=== PATIENT | female | born 1955 | race Caucasian/White ===

== ENCOUNTER 2016-09-06 18:04 | Inpatient (IN) | payer OTHER ==
[~2016-09-06] VITALS: Ht 167.6 cm; Wt 106.3 kg
[2016-09-06] MEDS: ASPIRIN 81 MG TAB PO SCH (02:00)
[2016-09-06] MEDS: POTASSIUM CHLORIDE 50 ML IVPB SCH ×2 (02:00→22:42)
[2016-09-06] MEDS ORDERED: PROPOFOL 100 ML ONE (18:22)
[2016-09-06 18:29] LABS: ADD SCAN DIFF NO
[2016-09-06] MEDS ORDERED: PROPOFOL 100 ML IV ONE (18:30)
[2016-09-06] MEDS ORDERED: FUROSEMIDE 20 MG INJ IV ONE (18:30)
[2016-09-06] MEDS ORDERED: hydrALAzine 20 MG INJ IV ONE (18:30)
[2016-09-06] MEDS ORDERED: NITROGLYCERIN 2% 1 GM OINT PKT TD ONE (18:30)
[2016-09-06 18:34] LABS: BASOPHIL # 0.1 10^3/ul (0.0-0.1); BASOPHILS % 0.7 % (0.0-2.0); EOSINOPHILS # 0.2 10^3/ul (0.0-0.5); EOSINOPHILS % 2.3 % (0.0-7.0); HEMATOCRIT 47.8 % (37.0-47.0); HEMOGLOBIN 14.4 g/dl (12.0-16.0); LYMPHOCYTES # 3.8 10^3/ul (0.8-2.9); LYMPHOCYTES % 37.7 % (15.0-51.0); MEAN CORPUSCULAR HGB CONC 30.1 g/dl (32.0-37.0); MEAN CORPUSCULAR VOLUME 99.6 fl (82.0-101.0); MEAN PLATELET VOLUME 10.9 fl (7.4-10.4); MONOCYTE # 0.9 10^3/ul (0.3-0.9); MONOCYTES % 8.8 % (0.0-11.0); NEUTROPHIL # 5.1 10^3/ul (1.6-7.5); NEUTROPHILS % 49.7 % (39.0-77.0); NUCLEATED RED BLOOD CELLS% 0.2 /100WBC (0.0-0.0); PLATELET COUNT 218 10^3/UL (140-415); RED CELL DISTRIBUTION WIDTH 16.1 % (11.5-14.5); WHITE BLOOD COUNT 10.2 10^3/ul (4.8-10.8)
[2016-09-06 18:50] LABS: ALBUMIN/GLOBULIN RATIO 1.08; BILIRUBIN,INDIRECT 0.9 mg/dl (0-1.1); BILIRUBIN,TOTAL 0.9 mg/dl (0.2-1.3); CALCIUM 9.5 mg/dl (8.4-10.2); CREATININE 1.5 mg/dl (0.44-1.00); POTASSIUM 3.4 mmol/L (3.5-5.1); TOTAL PROTEIN 9.6 g/dl (6.1-8.1)
[2016-09-06 19:01] LABS: TROPONIN-I 0.028 ng/ml (0.00-0.12)
[2016-09-06 19:24] LABS: AADO2 Arterial 439.8 mmHg (7.0-24.0); Allen Test ACCEPTAB; Arterial Base Excess -1.1 mmol/L (-3.0-3); Arterial COHb 0 % (0.0-3.0); Arterial Fraction of Oxyhgb 98.7 % (93.0-99.0); Arterial HCO3 25.3 mmol/L (22.0-26.0); Arterial MetHb 0.5 % (0.0-1.5); Arterial Total Hemglobin 15.4 g/dl (12.0-18.0); MODE VENT - AC
--- NOTE | 2016-09-06 19:33 | RADRPT ---
PROCEDURE: XR Chest. CLINICAL INDICATION: Possible sepsis. The patient is status post intubation. TECHNIQUE: Single frontal view of the chest. COMPARISON: None. FINDINGS: Endotracheal intubation is seen with tip about 35 mm above the curry. Single chamber left anterior chest wall cardiac pacer. Prominent cardiomegaly. Pulmonary vascular congestion. No signs of pleural fluid or pneumothorax are seen. The osseous structures and soft tissues are unre markable. IMPRESSION: Endotracheal intubation is seen with tip about 35 mm above the curry. RPTAT: [facility] Physician Collin Date Time Electronically viewed and signed by Physician Collin on 09/06/2016 19:33 RS/
[2016-09-06 19:41] LABS: INR 1.39; PARTIAL THROMBOPLASTIN TIME 31.7 Sec (25.0-35.0); PROTIME 17.1 Sec (12.2-14.2); PT RATIO 1.3
[2016-09-06 21:07] LABS: ADD UMIC YES; UR BILIRUBIN (Dip) NEGATIVE (NEGATIVE); UR BLOOD (Dip) 2+ (NEGATIVE); UR CLARITY SLIGHTLY CLOUDY (CLEAR); UR COLOR LT. YELLOW (YELLOW); UR GLUCOSE (Dip) NEGATIVE (NEGATIVE); UR KETONES (Dip) NEGATIVE (NEGATIVE); UR LEUKOCYTE ESTERASE (Dip) NEGATIVE (NEGATIVE); UR NITRITE (Dip) NEGATIVE (NEGATIVE); UR TOTAL PROTEIN (Dip) 2+ (NEGATIVE); UR UROBILINOGEN (Dip) 0.2 E.U./dL (0.1-1.0)
[2016-09-06 21:16] LABS: UR SQUAMOUS EPITHELIAL CELL RARE
--- NOTE | 2016-09-06 21:27 | RADRPT ---
PROCEDURE: CT Abdomen and Pelvis without contrast CLINICAL INDICATION: Abdominal pain TECHNIQUE: Transaxial images were obtained through the abdomen and pelvis on a multi-slice scanner without the intravenous contrast administration. No oral contrast had previously been given. Sagit sydnie and coronal re-formations were subsequently reconstructed. One or more of the following dose reduction techniques were used: - Automated exposure control. - Adjustment of the mA and/or kV according to patient size. - Use of iterative reconstruction technique. Radiation dose: CTDIvol = 23.10 mGy; DLP = 1560.42 mGy-cm. COMPARISON: No prior studies are available for comparison. FINDINGS: Lung bases: An endotracheal tube is seen to be in place. Subsegmental atelectasis is seen within th e posterior right upper lobe, posterior right lower lobe and discoid atelectasis is seen in the post erior left upper lobe and lower lobe. Artifact from pacemaker leads are seen to the heart and there is moderate cardiomegaly. Liver: The liver is enlarged and heterogeneous with a slightly nodular contour which can be seen in cirrhosis. No discrete focal lesion is identified. Gallbladder: There is cholelithiasis but the gallbladder wall does not appear thickened. Bile ducts: The intra and extrahepatic bile ducts are normal in caliber. Pancreas: Appears normal with no mass or inflammation evident. Spleen: Normal in size with no focal lesion. Adrenals: Normal with no mass identified. Kidneys, ureters and bladder: The kidneys are normal in size and there is no mass, pathological calc ification, or hydronephrosis evident. There is no perinephric stranding. The ureters are normal in c aliber and no ureteroliths are identified. A Moraes catheter is seen within a nondistended bladder al talia with a small amount of intraluminal air. Reproductive organs: The uterus is enlarged and midline. No adnexal mass is identified. Stomach and bowel: The stomach is moderately distended with fluid and food debris. There is no evid ence of bowel obstruction or inflammation. Appendix: The vermiform appendix is not discretely identified. Peritoneum: There is a moderate amount of water density free intraperitoneal fluid. No free air is identified. There is a small fat containing umbilical hernia. Aorta: There is atherosclerotic vascular calcification but no abdominal aortic aneurysm is evident. IVC: Unremarkable. Lymph nodes: No pathologically enlarged nodes are identified. Osseous structures: Moderate degenerative endplate changes are evident most extensive within the tho racic spine region. IMPRESSION: 1. Endotracheal tube in place. 2. A permanent pacemaker and leads are evident and there is moderate cardiomegaly. 3. Subsegmental atelectatic change seen within the posterior lung cabrera. 4. Hepatomegaly with a cirrhotic appearing liver but no discrete focal lesion. 5. Cholelithiasis not associated gallbladder wall thickening, bile duct dilatation or pancreatic pa thology. 6. Enlarged midline uterus with no adnexal mass evident. 7. Moderate amount of water density free intraperitoneal fluid with no free air identified. 8. The stomach is moderately distended with fluid and food debris but there is no evidence of bowel obstruction or inflammation. The vermiform appendix is not discretely identified. 9. Small fat containing umbilical hernia. 10. No evidence of urinary outflow obstruction. A Moraes catheter is seen in a nondistended bladder . 11. Atherosclerotic vascular calcification with degenerative spine changes. Physician Thiago Date Time Electronically viewed and signed by Physician Thiago on 09/06/2016 21:26 /
[2016-09-06] MEDS ORDERED: INSULIN LISPRO 100 UNIT/ML VIAL SC STA (21:40)
--- NOTE | 2016-09-06 21:51 | ERA ---
ER Documentation Chief Complaint Date/Time DATE: 09/06/16 TIME: 21:38 Chief Complaint SOB using accessory muscles to breath HPI This 60-year-old female is brought in respiratory extremis by paramedics who had complained of sudden onset shortness of breath but she was in the shower. She denies chest pain. Says that she fell yesterday and felt well immediately prior to having the sudden onset shortness of breath. Denies fevers and chills. She is only able to speak in one-word sentences and mostly communicates by nodding and shaking her head. ROS Unobtainable except for what is in the HPI. Medications Home Meds Unable to Obtain Active Prescriptions or Reported Meds Allergies Allergies: Coded Allergies: Unknown: Unable to obtain (Unverified , 09/06/16) pt intubated PMhx/Soc Medical and Surgical Hx: Unable to obtain Smoking Status: Unknown if ever smoked Physical Exam Vitals Vital Signs Date Time Temp Pulse Resp B/P Pulse Ox O2 Delivery O2 Flow Rate FiO2 09/06/16 21:25 85 111/68 Mechanical Ventilator 09/06/16 21:00 86 20 105/70 98 Mechanical Ventilator 09/06/16 20:28 99 132/79 98 Mechanical Ventilator 09/06/16 20:00 95 20 144/97 98 Mechanical Ventilator 09/06/16 19:35 98.3 95 136/92 97 Mechanical Ventilator 09/06/16 19:15 101 135/92 09/06/16 19:01 100 119/71 09/06/16 18:46 98.1 125 20 170/128 100 Mechanical Ventilator 09/06/16 18:34 136 20 100 100 09/06/16 18:12 98.1 143 22 202/148 100 Physical Exam Const: [] Severe distress, severe tachypnea Head: Atraumatic Eyes: Normal Conjunctiva ENT: Normal External Ears, Nose and Mouth. Moist mucous membranes Neck: Full range of motion..~ No meningismus. Resp: Decreased bibasilar breath sounds with Rales on the right side, respiratory rate approximately 60, accessory muscle use including scalenes. Cardio: A extreme regular tachycardia, no murmurs Abd: Soft, non tender, moderate distention, positive fluid wave, tympanic at the apex. Normal bowel sounds Skin: No petechiae or rashes Back: No midline or flank tenderness Ext: No cyanosis, or edema Neur: Awake and alert and apparently oriented 3, no focal deficits Psych: Extremely anxious Result Diagram: 09/06/16181409/06/161814 Results 24 hrs Laboratory Tests Test 09/06/16 18:15 09/06/16 18:17 09/06/16 19:55 White Blood Count 10.210^3/ul Red Blood Count 4.8010^6/ul Hemoglobin 14.4g/dl Hematocrit 47.8% Mean Corpuscular Volume 99.6fl Mean Corpuscular Hemoglobin 30.0pg Mean Corpuscular Hemoglobin Concent 30.1g/dl Red Cell Distribution Width 16.1% Platelet Count 82800^3/UL Mean Platelet Volume 10.9fl Neutrophils % 49.7% Lymphocytes % 37.7% Monocytes % 8.8% Eosinophils % 2.3% Basophils % 0.7% Nucleated Red Blood Cells % 0.2/100WBC Neutrophils # 5.110^3/ul Lymphocytes # 3.810^3/ul Monocytes # 0.910^3/ul Eosinophils # 0.210^3/ul Basophils # 0.110^3/ul Nucleated Red Blood Cells # 0.010^3/ul Prothrombin Time 17.1Sec Prothrombin Time Ratio 1.3 INR International Normalized Ratio 1.39 Activated Partial Thromboplast Time 31.7Sec Sodium Level 146mmol/L Potassium Level 3.4mmol/L Chloride Level 101mmol/L Carbon Dioxide Level 21mmol/L Anion Gap 27 Blood Urea Nitrogen 21mg/dl Creatinine 1.50mg/dl Glucose Level 267mg/dl Calcium Level 9.5mg/dl Total Bilirubin 0.9mg/dl Direct Bilirubin 0.00mg/dl Indirect Bilirubin 0.9mg/dl Aspartate Amino Transf (AST/SGOT) 29IU/L Alanine Aminotransferase (ALT/SGPT) 23IU/L Alkaline Phosphatase 186IU/L Troponin I 0.028ng/ml B-Type Natriuretic Peptide 9080PG/ML Total Protein 9.6g/dl Albumin 5.0g/dl Globulin 4.60g/dl Albumin/Globulin Ratio 1.08 Blood Gas Specimen Source Blood arterial Arterial Blood Date Drawn 09/06/2016 7:10:52 PM Arterial Blood pH (Temp corrected) 7.335 Arterial Blood pCO2 (Temp correct) 48.5mmhg Arterial Blood pO2 (Temp corrected) 224.7mmHG Arterial Blood HCO3 25.3mmol/L Arterial Blood Base Excess -1.1mmol/L Arterial Blood Oxygen Saturation 99.2mmHG Antonio Test ACCEPTAB Arterial Blood Gas Puncture Site UAL Arterial Blood Carboxyhemoglobin 0% Arterial Blood Methemoglobin 0.5% Blood Gas A-a O2 Differential 439.8mmHg Oxyhemoglobin Percent 98.7% Total Hemoglobin 15.4g/dl Blood Gas Temperature 37.0C Blood Gas Respiration Rate 20.0 Blood Gas Actual Respiration Rate 20 Blood Gas Modality VENT - AC FiO2 100.0% Blood Gas Tidal Volume 500.0mL Blood Gas Low PEEP Setting 5.0cmH2O Blood Gas Inspiratory Pressure 29.0 Blood Gas Notified Whom AA Blood Gas Notified Time 09/06/2016 7:23:41 PM Urine Color LT. YELLOW Urine Clarity SLIGHTLY CLOUDY Urine pH 6.5 Urine Specific [place] 1.020 Urine Ketones NEGATIVE Urine Nitrite NEGATIVE Urine Bilirubin NEGATIVE Urine Urobilinogen 0.2 E.U./dL Urine Leukocyte Esterase NEGATIVE Urine Microscopic RBC 5-10/HPF Urine Microscopic WBC 0-2/HPF Urine Squamous Epithelial Cells RARE Urine Hemoglobin 2+ Urine Glucose NEGATIVE% Urine Total Protein 2+ Current Medications Medications (Trade) Dose Ordered Sig/Catherine Route PRN Reason Start Time Stop Time Status Last Admin Dose Admin Propofol (Diprivan) 100 ml @ 0 mls/hr TITRATE ONCE IV 09/06/16 18:30 09/06/16 18:31 DC 09/06/16 18:57 Hydralazine HCl (Apresoline) 10 mg ONCE ONCE IV 09/06/16 18:30 09/06/16 18:31 DC 09/06/16 18:57 Furosemide (Lasix) 20 mg ONCE ONCE IV 09/06/16 18:30 09/06/16 18:31 DC 09/06/16 18:57 Nitroglycerin 1 inch 1 inch ONCE ONCE TD 09/06/16 18:30 09/06/16 18:31 DC 09/06/16 18:58 Propofol (Diprivan) 100 ml @ ud STK-MED ONCE .ROUTE 09/06/16 18:22 09/06/16 19:19 DC Procedures/MDM Severe respiratory distress likely secondary to flash pulmonary edema. Patient is extremely hypertensive according the paramedics. Was hypertensive on arrival to ER 2. Chest x-ray consistent with pulmonary edema, BNP of 9000. Patient had no chest pain and no signs of acute ischemia on EKG. Patient was quickly intubated and respiratory rate was started at 24. Blood gas revealed no severe acidosis. Adequate oxygenation. Mild CO2 retention. Tachycardia also resolved after intubation. She with Lasix and Nitropaste, blood pressure reduced prior to need to give hydralazine. No elevated white count or other signs of infection currently. Spoke with Dr. Wayne who is admitting the patient to the ICU. EKG interpretation: Sinus tachycardia with single PVC, left axis deviation, nonspecific interventricular conduction block, QTC of 536, no ST or T-wave changes concerning for acute ischemia. 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 Critical care time 47 minutes: This includes treatment of respiratory failure with flash pulmonary edema, ventilator management, use of nitroglycerin and Lasix remove fluid, multiple visits this the patient's bedside to reassess status, chart review, discussion with admitting doctor. This does not include any billable procedures. ET intubation note: RSI was used with 20 mg of etomidate 100 mg of rocuronium, preoxygenated to 100% bag mask ventilation, 7.5 ET tube was easily introduced through visualized vocal cords using a Mac 4 blade, patient tied the procedure well or no complications. I should finish is 100% after the procedure. Departure Diagnosis: Primary Impression: Pulmonary edema Additional Impressions: Respiratory failure CHF (congestive heart failure) Hyperglycemia due to type 2 diabetes mellitus Renal insufficiency Liver cirrhosis Condition: Critical STEPHANIE DYSON DO Sep 06, 2016 21:48
[2016-09-06 22:00] VITALS: TEMP 98.3
[2016-09-06] MEDS ORDERED: IPRATROPIUM (HFA) 12.9 GM INHALER INH PRN (22:30)
[2016-09-06] MEDS ORDERED: ACETAMINOPHEN 650 MG SUPP PR PRN (22:30)
[2016-09-06] MEDS ORDERED: ONDANSETRON 4 MG INJ IV PRN (22:30)
[2016-09-06] MEDS ORDERED: ALBUTEROL 18 GM INHALER INH PRN (22:30)
[2016-09-07] VITALS (47 sets, daily range): BP systolic 110–139; BP diastolic 69–88; PULSE 79–91; RESP 20; Ht 167.6 cm; Wt 106.3 kg
[2016-09-07] MEDS ORDERED: GLUCOSE GEL 15 GRAM TUBE BUCCAL PRN (00:30)
[2016-09-07] MEDS ORDERED: GLUCOSE GEL 15 GRAM TUBE PO PRN ×2 (00:30)
[2016-09-07] MEDS ORDERED: DEXTROSE 50% 50 ML SYRINGE IV PRN ×2 (00:30)
[2016-09-07] MEDS ORDERED: GLUCAGON 1 MG INJ IM PRN (00:30)
--- NOTE | 2016-09-07 01:35 | QN ---
Documentation Comment BH&P dict a/p 1. cards; elevated trop[ and flash pulm edema, suspect this is related to acs, cont asa, cards eval (b) massive cardiomegaly, suspect dilated cardiomyopathy await echo 2. pulm: resp failure, cont vent support 3. gi: cirrhosis with ascites, monitor 4. renal: ckd 5. proph: ANNA Rodgers MD Sep 07, 2016 01:35
[2016-09-07] MEDS: ENOXAPARIN 100 MG/ML SYG SC SCH ×2 (02:07→13:13)
[2016-09-07] MEDS: ALBUTEROL 18 GM INHALER INH SCH ×6 (02:26→21:54)
[2016-09-07] MEDS: IPRATROPIUM (HFA) 12.9 GM INHALER INH SCH ×6 (02:27→21:54)
--- NOTE | 2016-09-07 02:38 | HP ---
DATE OF ADMISSION: 09/06/2016 CHIEF COMPLAINT: Shortness of breath. HISTORY OF PRESENT ILLNESS: Ms. Connell presents to the emergency room at [facility] with shortness of breath which is of sudden onset. At the time of my arrival, patient is intubated and s edated, unable to provide additional history. The remainder of this is garnered from a conversation with the emergency room physician and review of the medical record. According to the ER physician sign-out, the patient was in her usual state of health and was in the shower this afternoon when she became suddenly short of breath and paramedics were called and she was brought to the hospital. Luis nur was in moderate to severe respiratory distress at this time and intubated urgently on arrival. PAST MEDICAL HISTORY: Unknown. MEDICATIONS: As an outpatient, unknown. ALLERGIES: UNKNOWN. SOCIAL HISTORY: Unknown. FAMILY HISTORY: Unknown. REVIEW OF SYSTEMS: Unobtainable secondary to patient's status. PHYSICAL EXAMINATION: VITAL SIGNS: Blood pressure is 129/83, pulse rate 85, respirations 16, temperature is 98.3. She is satting 100% on a ventilator. GENERAL: A middle-aged -[place] female, obese, intubated and sedated. HEENT: Normocephalic, atraumatic without evident scleral icterus, perioral cyanosis. NECK: I do not appreciate any jugular venous distention or carotid bruits. CHEST: Clear to auscultation and percussion bilaterally. HEART: Regular rate and rhythm, S1-S2, no added sounds. ABDOMEN: Soft, nontender, nondistended without palpable hepatosplenomegaly. EXTREMITIES: Without clubbing, cyanosis, or edema. Pedal pulses are intact. Feet are cold. SKIN: Without rashes. NEUROLOGIC: The patient is not cooperative with exam and is currently sedated. LABORATORY STUDIES: Reveal a hemoglobin of 14.4 g/dL, white count of 10,200, platelets of 218,000. INR is 1.39. Sodium 146, potassium 3.4, chloride 101, bicarbonate 21, BUN 21, creatinine 1.5, gluc ose 267. Liver function tests remarkable only for an alkaline phosphatase of 186. Troponin is 0.02 8 and repeated at 0.158. BNP is 9080. UA is negative for signs of infection. Chest x-ray shows a left single lead pacemaker, pulmonary vascular congestion, large cardiomegaly. CT scan of the abdom en and pelvis shows hepatomegaly with nodular cirrhotic appearance to the liver parenchyma, moderate ascites, distended stomach. EKG reveals sinus rhythm with no definitive ST segment changes. ASSESSMENT AND PLAN: 1. Cardiac: The patient with likely acute coronary syndrome as the cause of her current respirator y failure and sudden decompensation. We will obtain serial troponins, begin aspirin and Lovenox, ho ld beta enma at this time because of patient's vital signs at this point, obtain cardiology consu ltation. 2. Pulmonary: Patient with respiratory failure on the ventilator. Will obtain pulmonary consultat ion for further management. 3. Gastrointestinal: Patient with cirrhosis appearance of the liver on CT scan; however, none of t he physical exam stigmata are appreciated, though she does have mildly elevated INR and ascites. Wi ll continue to monitor at this time. 4. Renal: Patient with creatinine 1.5. This is presumed to be baseline. Continue to monitor. 5. Elevated blood sugar, unclear if this represents diabetes. We will continue to follow. 6. Prophylaxis with Protonix and treatment dose Lovenox based on presumed diagnosis of acute hodges ry syndrome. Dictated By: ANNA ALLEN MD RER/NTS Conf#: [id number] DID#: [id number]
[2016-09-07] MEDS: ATORVASTATIN 40 MG TAB PO SCH ×2 (03:09→21:20)
[2016-09-07] MEDS: PROPOFOL 100 ML IV SCH ×5 (03:09→22:01)
[2016-09-07] MEDS ORDERED: FUROSEMIDE 40 MG INJ IV SCH (06:00)
[2016-09-07] MEDS: PANTOPRAZOLE 40 MG INJ IV SCH (06:13)
[2016-09-07 06:53] LABS: ADD SCAN DIFF NO
[2016-09-07 07:01] LABS: BASOPHILS % 0.4 % (0.0-2.0); EOSINOPHILS # 0.1 10^3/ul (0.0-0.5); EOSINOPHILS % 0.7 % (0.0-7.0); HEMATOCRIT 39.5 % (37.0-47.0); HEMOGLOBIN 12.5 g/dl (12.0-16.0); LYMPHOCYTES # 1.5 10^3/ul (0.8-2.9); LYMPHOCYTES % 15.1 % (15.0-51.0); MEAN CORPUSCULAR HEMOGLOBIN 29.4 pg (29.0-33.0); MEAN CORPUSCULAR HGB CONC 31.6 g/dl (32.0-37.0); MEAN CORPUSCULAR VOLUME 92.9 fl (82.0-101.0); MEAN PLATELET VOLUME 11.2 fl (7.4-10.4); MONOCYTE # 0.6 10^3/ul (0.3-0.9); MONOCYTES % 6.1 % (0.0-11.0); NEUTROPHIL # 7.6 10^3/ul (1.6-7.5); NEUTROPHILS % 77.4 % (39.0-77.0); PLATELET COUNT 220 10^3/UL (140-415); RED BLOOD COUNT 4.25 10^6/ul (4.20-5.40); RED CELL DISTRIBUTION WIDTH 16.1 % (11.5-14.5); WHITE BLOOD COUNT 9.8 10^3/ul (4.8-10.8)
[2016-09-07 07:23] LABS: CALCIUM 9.2 mg/dl (8.4-10.2); CREATININE 1.19 mg/dl (0.44-1.00); POTASSIUM 3.9 mmol/L (3.5-5.1)
[2016-09-07] MEDS ORDERED: INSULIN ASPART [NOVOLOG] 3 ML PEN SC SCH (07:35)
[2016-09-07] MEDS ORDERED: ENOXAPARIN 40 MG/0.4 ML SYG SC SCH (09:00)
--- NOTE | 2016-09-07 09:09 | RADRPT ---
PROCEDURE: Chest 1 views. CLINICAL INDICATION: Status post orogastric tube insertion. TECHNIQUE: AP views of the chest was obtained. COMPARISON: Yesterday FINDINGS: The heart is large. Endotracheal tube is stable and appears in grossly appropriate location. [place] tric tube is identified to the level of the hemidiaphragms. The abdomen below the hemidiaphragms is not included on the obtained film. Left-sided AICD has its lead over the heart and appears stable. Central pulmonary vascular congestion and interstitial prominence is seen in both lungs. Bilatera l perihilar and lower lung infiltrates, combined with small pleural effusions have increased. [place] us structures are unchanged. IMPRESSION: Cardiomegaly . Orogastric tube identified to the level of the hemidiaphragms. The abdomen below the hemidiaphragms was not included on the obtained film. The distal end of the gastric tube is likely within the sto mach. If confirmation is needed an abdominal film is recommended. Central pulmonary vascular congestion and interstitial prominence in both lungs. Interval increase in bilateral perihilar lower lung infiltrates, combined with small pleural effusio ns. RPTAT: AA .Koffi Kruse MD, Date Time Electronically viewed and signed by .Koffi Kruse MD, on 09/07/2016 09:09 .P/
--- NOTE | 2016-09-07 09:54 | PN ---
Date/Time of Note Date/Time of Note DATE: 09/07/16 TIME: 09:31 Assessment/Plan VTE Prophylaxis VTE Prophylaxis Intervention: LMWH Lines/Catheters IV Catheter Type (from Nrs): Peripheral IV Urinary Cath still in place: Yes Reason Cath still needed: other (indicate) (monitor UOP, CHF ) Assessment/Plan Assessment/Plan 60 yo female with: 1. Acute Hypoxemic respiratory failure, likely 2ry yto pulmonary edema and CHF, ? triggered by acute cardiac event Diuresing and Pulmonary following for vent management, adding Aldactone Continue trending cardiac enzymes 2D echo pending and check BNP 2. Elevated troponins, with Cardiomyopathy, pacer for ? cardiac arrhythmia in place but not pacing currently, likely ACS Cardiology, Dr Kingsley consulted and 2D echo done and trending troponins Interrogate Pacer if possible, ? battery life ASA, Lovenox 3. Cirrhosis, unknown history , so ? etiology Monitor LFTs and liver function Rechecking Ammonia level this AM 4. ILAN vs CKD, creat down to 1.2 this AM while being diuresed Moraes in place Renal US and continue to monitor. 5. Hyperglycemia: On SSI, check A1c, unknown hx . Prophylaxis: GI ppx with Protonix and on treatment dose of Lovenox for possible ACS. Disposition: ICU, pulmonary following, Cardiology consulted Subjective 24 Hr Interval Summary Free Text/Dictation Patient in respiratory failure, intubated and on Propofol for sedation VSS on vent Exam/Review of Systems Vital Signs Vitals Vital Signs Date Time Temp Pulse Resp B/P Pulse Ox O2 Delivery O2 Flow Rate FiO2 09/07/16 08:30 82 20 99 40 09/07/16 06:00 131/83 Mechanical Ventilator 09/07/16 04:00 97.8 Intake and Output 09/06/16 09/06/16 09/07/16 15:00 23:00 07:00 Intake Total 144 ml Output Total 900 ml Balance -756 ml Exam Constitutional: other (sedated and intubated ) Respiratory: diminished breath sounds (bilaterally ), other (intubated ) Cardiovascular: nl pulses, other (pacer in site), regular rate and rhythm Gastrointestinal: non-tender, other (cirrhosis ), soft Musculoskeletal: nl extremities to inspection Extremities: normal pulses, other (no edema, clubbing or cyanosis ) Neurological: other (sedated and intubated ) Results Result Diagram: 09/07/16 0523 09/07/16 0523 Results 24 hrs Laboratory Tests Test 09/06/16 18:15 09/06/16 18:17 09/06/16 19:55 09/06/16 20:49 White Blood Count 10.2 Red Blood Count 4.80 Hemoglobin 14.4 Hematocrit 47.8 H Mean Corpuscular Volume 99.6 Mean Corpuscular Hemoglobin 30.0 Mean Corpuscular Hemoglobin Concent 30.1 L Red Cell Distribution Width 16.1 H Platelet Count 218 Mean Platelet Volume 10.9 H Neutrophils % 49.7 Lymphocytes % 37.7 Monocytes % 8.8 Eosinophils % 2.3 Basophils % 0.7 Nucleated Red Blood Cells % 0.2 H Neutrophils # 5.1 Lymphocytes # 3.8 H Monocytes # 0.9 Eosinophils # 0.2 Basophils # 0.1 Nucleated Red Blood Cells # 0.0 Prothrombin Time 17.1 H Prothrombin Time Ratio 1.3 INR International Normalized Ratio 1.39 Activated Partial Thromboplast Time 31.7 Sodium Level 146 H Potassium Level 3.4 L Chloride Level 101 Carbon Dioxide Level 21 Anion Gap 27 H Blood Urea Nitrogen 21 H Creatinine 1.50 H Glucose Level 267 H Calcium Level 9.5 Total Bilirubin 0.9 Direct Bilirubin 0.00 Indirect Bilirubin 0.9 Aspartate Amino Transf (AST/SGOT) 29 Alanine Aminotransferase (ALT/SGPT) 23 Alkaline Phosphatase 186 H Troponin I 0.028 B-Type Natriuretic Peptide 9080 H Total Protein 9.6 H Albumin 5.0 H Globulin 4.60 H Albumin/Globulin Ratio 1.08 Blood Gas Specimen Source Blood arterial Arterial Blood Date Drawn 09/06/2016 7:10:52 PM Arterial Blood pH (Temp corrected) 7.335 L Arterial Blood pCO2 (Temp correct) 48.5 H Arterial Blood pO2 (Temp corrected) 224.7 H Arterial Blood HCO3 25.3 Arterial Blood Base Excess -1.1 Arterial Blood Oxygen Saturation 99.2 H Antonio Test ACCEPTAB Arterial Blood Gas Puncture Site UAL Arterial Blood Carboxyhemoglobin 0 Arterial Blood Methemoglobin 0.5 Blood Gas A-a O2 Differential 439.8 H Oxyhemoglobin Percent 98.7 Total Hemoglobin 15.4 Blood Gas Temperature 37.0 Blood Gas Respiration Rate 20.0 Blood Gas Actual Respiration Rate 20 Blood Gas Modality VENT - AC FiO2 100.0 Blood Gas Tidal Volume 500.0 Blood Gas Low PEEP Setting 5.0 Blood Gas Inspiratory Pressure 29.0 Blood Gas Notified Whom AA Blood Gas Notified Time 09/06/2016 7:23:41 PM Urine Color LT. YELLOW Urine Clarity SLIGHTLY CLOUDY Urine pH 6.5 Urine Specific [place] 1.020 Urine Ketones NEGATIVE Urine Nitrite NEGATIVE Urine Bilirubin NEGATIVE Urine Urobilinogen 0.2 E.U./dL Urine Leukocyte Esterase NEGATIVE Urine Microscopic RBC 5-10 Urine Microscopic WBC 0-2 Urine Squamous Epithelial Cells RARE Urine Hemoglobin 2+ H Urine Glucose NEGATIVE Urine Total Protein 2+ H Lactic Acid Level 3.6 H Ammonia 34 H Test 09/06/16 22:50 09/07/16 00:30 09/07/16 05:23 09/07/16 09:02 Lactic Acid Level 3.7 H 2.4 H Troponin I 0.158 *H 0.133 *H White Blood Count 9.8 Red Blood Count 4.25 Hemoglobin 12.5 Hematocrit 39.5 Mean Corpuscular Volume 92.9 Mean Corpuscular Hemoglobin 29.4 Mean Corpuscular Hemoglobin Concent 31.6 L Red Cell Distribution Width 16.1 H Platelet Count 220 Mean Platelet Volume 11.2 H Neutrophils % 77.4 H Lymphocytes % 15.1 Monocytes % 6.1 Eosinophils % 0.7 Basophils % 0.4 Nucleated Red Blood Cells % 0.0 Neutrophils # 7.6 H Lymphocytes # 1.5 Monocytes # 0.6 Eosinophils # 0.1 Basophils # 0.0 Nucleated Red Blood Cells # 0.0 Sodium Level 147 H Potassium Level 3.9 Chloride Level 107 Carbon Dioxide Level 27 Anion Gap 17 #H Blood Urea Nitrogen 22 H Creatinine 1.19 H Glucose Level 155 # Calcium Level 9.2 Bedside Glucose 126 Medications Medications Current Medications Ondansetron HCl (Zofran Inj) 4 mg Q6H PRN IV NAUSEA AND/OR VOMITING; Start 09/06 at 22:30 Acetaminophen (Tylenol Supp) 650 mg Q4H PRN [place] PAIN LEVEL 1-3 OR FEVER; Start 09/06/16 at 22:30 Hydromorphone HCl (Dilaudid) 0.5 mg Q4H PRN IV PAIN LEVEL 7-10; Start 09/06/16 at 22:30 Pantoprazole (Protonix Iv) 40 mg DAILY@06 IV Last administered on 09/07/16t 06: 13; Admin Dose 40 MG; Start 09/07/16 at 06:00 Aspirin (Aspirin) 81 mg DAILY PO ; Start 09/06/16 at 22:30 Atorvastatin Calcium (Lipitor) 40 mg DAILY@21 PO Last administered on 09/07/16 03:09; Admin Dose 40 MG; Start 09/07/16 at 00:45 Furosemide (Lasix) 40 mg Q12H IV Last administered on 09/07/16 06:13; Admin Dose 40 MG; Start 09/07/16 at 06:00 Miscellaneous Information 1 ea NOTE XX ; Start 09/07/16 at 00:30 Glucose (Glutose) 15 gm Q15M PRN PO DECREASED GLUCOSE; Start 09/07/16 at 00:30 Glucose (Glutose) 22.5 gm Q15M PRN PO DECREASED GLUCOSE; Start 09/07/16 at 00:30 Dextrose (D50w Syringe) 25 ml Q15M PRN IV DECREASED GLUCOSE; Start 09/07/16 at 00:30 Dextrose (D50w Syringe) 50 ml Q15M PRN IV DECREASED GLUCOSE; Start 09/07/16 at 00:30 Glucagon (Glucagen) 1 mg Q15M PRN IM DECREASED GLUCOSE; Start 09/07/16 at 00:30 Glucose (Glutose) 15 gm Q15M PRN BUCCAL DECREASED GLUCOSE; Start 09/07/16 at 00: 30 Enoxaparin Sodium 100 mg 100 mg Q12H SC Last administered on 09/07/16 02:07; Admin Dose 100 MG; Start 09/07/16 at 02:00 Propofol (Diprivan) 100 ml @ 3 mls/hr Q12H IV Last administered on 09/07/16 08: 11; Admin Dose 24 MLS/HR; Start 09/07/16 at 02:30 Procedures Procedures PROCEDURE: Chest 1 views. CLINICAL INDICATION: Status post orogastric tube insertion. TECHNIQUE: AP views of the chest was obtained. COMPARISON: Yesterday FINDINGS: The heart is large. Endotracheal tube is stable and appears in grossly appropriate location. Orogastric tube is identified to the level of the hemidiaphragms. The abdomen below the hemidiaphragms is not included on the obtained film. Left-sided AICD has its lead over the heart and appears stable. Central pulmonary vascular congestion and interstitial prominence is seen in both lungs. Bilateral perihilar and lower lung infiltrates, combined with small pleural effusions have increased. Osseous structures are unchanged. IMPRESSION: Cardiomegaly . Orogastric tube identified to the level of the hemidiaphragms. The abdomen below the hemidiaphragms was not included on the obtained film. The distal end of the gastric tube is likely within the stomach. If confirmation is needed an abdominal film is recommended. Central pulmonary vascular congestion and interstitial prominence in both lungs. Interval increase in bilateral perihilar lower lung infiltrates, combined with small pleural effusions. MACKENZIE ESCOBAR Sep 07, 2016 09:43
[2016-09-07] MEDS: ASPIRIN 81 MG TAB PO SCH (09:55)
--- NOTE | 2016-09-07 09:57 | RADRPT ---
Vent Rate: 83 bpm RR Interval: 0 msec NM Interval: 180 msec QRS Duration: 132 msec QT Interval: 498 msec QTC Interval: 585 msec P-R-T [place]: 42 - -31 - 104 degrees Normal sinus rhythm Left axis deviation Left Anterior hemiblock Left ventricular hypertrophy with QRS widening and repolarization abnormality Poor R Wave Progression Abnormal ECG No previous tracing available for comparison Electronically Signed By: Lee Joe [id number]
--- NOTE | 2016-09-07 10:36 | CONS ---
Date/Time of Note Date/Time of Note DATE: 09/07/16 TIME: 10:29 Assessment/Plan Assessment/Plan Additional Assessment/Plan Chest x-ray was reviewed from this morning which is showing florid bilateral pulmonary edema with cardiomegaly. Endotracheal tube is at an adequate level. There is a pacemaker in left chest wall. Ventilator setting; AC of 20, tidal volume 500, PEEP of 5, 40% FiO2. Patient currently on propofol drip at 40 mics per kilogram per minute. Assessment recommendations; 1. Patient admitted for flash edema leading to respiratory failure likely from acute [place]. 2. History of hypertension, diabetes, renal insufficiency. 3. History of cardiac arrhythmia. Continue current treatment. A 2D echocardiogram is pending. Patient likely may need to have coronary angiogram performed permitting her renal status improves. Obtain follow-up chest x-ray in 24 hours. Continue current Lasix dosing. Consultation Date/Type/Reason Admit Date/Time Sep 06, 2016 at 20:38 Date of Consultation: Sep 07, 2016 Type of Consultation: Pulmonary/critical care Reason for Consultation Pulmonary consultations requested for evaluation of respiratory failure. History of presenting any; patient is a 60-year-old white lady who was brought into the emergency room with sudden onset of shortness of breath while the patient was taking shower. Upon evaluation patient was found to be in respiratory failure she was initially treated with BiPAP but failed it and had to be intubated and put on invasive mechanical ventilation. By the time I saw the patient the patient is in ICU, orally intubated and sedated. History was obtained from medical records. According to medical records, the patient did not have any symptoms prior to the onset of sudden onset of shortness of breath as outlined above. Past medical history; 1. History of apparent diabetes. 2. Hypertension. 3. Possibly chronic renal insufficiency. 4. No available history of any coronary artery disease or congestive heart failure. Medications; reviewed. Allergies; none. Social history, family history, occupational history is not available. Review of systems; currently unable to be obtained. General exam; elderly lady, orally intubated, sedated, currently in no distress. Social History Smoking Status: Unknown if ever smoked Exam/Review of Systems Vital Signs Vitals Vital Signs Date Time Temp Pulse Resp B/P Pulse Ox O2 Delivery O2 Flow Rate FiO2 09/07/16 08:30 82 20 99 40 09/07/16 06:00 131/83 Mechanical Ventilator 09/07/16 04:00 97.8 Intake and Output 09/06/16 09/06/16 09/07/16 15:00 23:00 07:00 Intake Total 144 ml Output Total 900 ml Balance -756 ml Exam HEENT exam; supple neck, positive JVD. No lymphadenopathy. Midline trachea. No thyromegaly. Patient has fair dentition. Pupils are midsize and reactive to light bilaterally and equally. No neck bruits. No neck masses. Orally intubated. Neck Chest examined; diminished breath sounds bilaterally. No added sound. S1-S2 audible, no murmurs. Regular rhythm. Abdomen examination; protuberant, there is a reducible umbilical hernia present. Bowel sounds audible. Extremity exam; 1+ edema. JUNIOR BUSINESS ANALYST examination; patient is sedated Results Result Diagram: 09/07/16 0523 09/07/16 0523 Results 24 hrs Laboratory Tests Test 09/06/16 18:15 09/06/16 18:17 09/06/16 19:55 09/06/16 20:49 White Blood Count 10.2 Red Blood Count 4.80 Hemoglobin 14.4 Hematocrit 47.8 H Mean Corpuscular Volume 99.6 Mean Corpuscular Hemoglobin 30.0 Mean Corpuscular Hemoglobin Concent 30.1 L Red Cell Distribution Width 16.1 H Platelet Count 218 Mean Platelet Volume 10.9 H Neutrophils % 49.7 Lymphocytes % 37.7 Monocytes % 8.8 Eosinophils % 2.3 Basophils % 0.7 Nucleated Red Blood Cells % 0.2 H Neutrophils # 5.1 Lymphocytes # 3.8 H Monocytes # 0.9 Eosinophils # 0.2 Basophils # 0.1 Nucleated Red Blood Cells # 0.0 Prothrombin Time 17.1 H Prothrombin Time Ratio 1.3 INR International Normalized Ratio 1.39 Activated Partial Thromboplast Time 31.7 Sodium Level 146 H Potassium Level 3.4 L Chloride Level 101 Carbon Dioxide Level 21 Anion Gap 27 H Blood Urea Nitrogen 21 H Creatinine 1.50 H Glucose Level 267 H Calcium Level 9.5 Total Bilirubin 0.9 Direct Bilirubin 0.00 Indirect Bilirubin 0.9 Aspartate Amino Transf (AST/SGOT) 29 Alanine Aminotransferase (ALT/SGPT) 23 Alkaline Phosphatase 186 H Troponin I 0.028 B-Type Natriuretic Peptide 9080 H Total Protein 9.6 H Albumin 5.0 H Globulin 4.60 H Albumin/Globulin Ratio 1.08 Blood Gas Specimen Source Blood arterial Arterial Blood Date Drawn 09/06/2016 7:10:52 PM Arterial Blood pH (Temp corrected) 7.335 L Arterial Blood pCO2 (Temp correct) 48.5 H Arterial Blood pO2 (Temp corrected) 224.7 H Arterial Blood HCO3 25.3 Arterial Blood Base Excess -1.1 Arterial Blood Oxygen Saturation 99.2 H Antonio Test ACCEPTAB Arterial Blood Gas Puncture Site UAL Arterial Blood Carboxyhemoglobin 0 Arterial Blood Methemoglobin 0.5 Blood Gas A-a O2 Differential 439.8 H Oxyhemoglobin Percent 98.7 Total Hemoglobin 15.4 Blood Gas Temperature 37.0 Blood Gas Respiration Rate 20.0 Blood Gas Actual Respiration Rate 20 Blood Gas Modality VENT - AC FiO2 100.0 Blood Gas Tidal Volume 500.0 Blood Gas Low PEEP Setting 5.0 Blood Gas Inspiratory Pressure 29.0 Blood Gas Notified Whom AA Blood Gas Notified Time 09/06/2016 7:23:41 PM Urine Color LT. YELLOW Urine Clarity SLIGHTLY CLOUDY Urine pH 6.5 Urine Specific [place] 1.020 Urine Ketones NEGATIVE Urine Nitrite NEGATIVE Urine Bilirubin NEGATIVE Urine Urobilinogen 0.2 E.U./dL Urine Leukocyte Esterase NEGATIVE Urine Microscopic RBC 5-10 Urine Microscopic WBC 0-2 Urine Squamous Epithelial Cells RARE Urine Hemoglobin 2+ H Urine Glucose NEGATIVE Urine Total Protein 2+ H Lactic Acid Level 3.6 H Ammonia 34 H Test 09/06/16 22:50 09/07/16 00:30 09/07/16 05:23 09/07/16 09:02 Lactic Acid Level 3.7 H 2.4 H Troponin I 0.158 *H 0.133 *H White Blood Count 9.8 Red Blood Count 4.25 Hemoglobin 12.5 Hematocrit 39.5 Mean Corpuscular Volume 92.9 Mean Corpuscular Hemoglobin 29.4 Mean Corpuscular Hemoglobin Concent 31.6 L Red Cell Distribution Width 16.1 H Platelet Count 220 Mean Platelet Volume 11.2 H Neutrophils % 77.4 H Lymphocytes % 15.1 Monocytes % 6.1 Eosinophils % 0.7 Basophils % 0.4 Nucleated Red Blood Cells % 0.0 Neutrophils # 7.6 H Lymphocytes # 1.5 Monocytes # 0.6 Eosinophils # 0.1 Basophils # 0.0 Nucleated Red Blood Cells # 0.0 Sodium Level 147 H Potassium Level 3.9 Chloride Level 107 Carbon Dioxide Level 27 Anion Gap 17 #H Blood Urea Nitrogen 22 H Creatinine 1.19 H Glucose Level 155 # Hemoglobin A1c 7.5 H Calcium Level 9.2 Magnesium Level 2.1 B-Type Natriuretic Peptide 36157 H Bedside Glucose 126 Medications Medications Current Medications Ondansetron HCl (Zofran Inj) 4 mg Q6H PRN IV NAUSEA AND/OR VOMITING; Start 09/06 at 22:30 Acetaminophen (Tylenol Supp) 650 mg Q4H PRN [place] PAIN LEVEL 1-3 OR FEVER; Start 09/06/16 at 22:30 Hydromorphone HCl (Dilaudid) 0.5 mg Q4H PRN IV PAIN LEVEL 7-10; Start 09/06/16 at 22:30 Pantoprazole (Protonix Iv) 40 mg DAILY@06 IV Last administered on 09/07/16 06: 13; Admin Dose 40 MG; Start 09/07/16 at 06:00 Aspirin (Aspirin) 81 mg DAILY PO ; Start 09/06/16 at 22:30 Atorvastatin Calcium (Lipitor) 40 mg DAILY@21 PO Last administered on 09/07/16 03:09; Admin Dose 40 MG; Start 09/07/16 at 00:45 Furosemide (Lasix) 40 mg Q12H IV Last administered on 09/07/16 06:13; Admin Dose 40 MG; Start 09/07/16 at 06:00 Miscellaneous Information 1 ea NOTE XX ; Start 09/07/16 at 00:30 Glucose (Glutose) 15 gm Q15M PRN PO DECREASED GLUCOSE; Start 09/07/16 at 00:30 Glucose (Glutose) 22.5 gm Q15M PRN PO DECREASED GLUCOSE; Start 09/07/16 at 00:30 Dextrose (D50w Syringe) 25 ml Q15M PRN IV DECREASED GLUCOSE; Start 09/07/16 at 00:30 Dextrose (D50w Syringe) 50 ml Q15M PRN IV DECREASED GLUCOSE; Start 09/07/16 at 00:30 Glucagon (Glucagen) 1 mg Q15M PRN IM DECREASED GLUCOSE; Start 09/07/16 at 00:30 Glucose (Glutose) 15 gm Q15M PRN BUCCAL DECREASED GLUCOSE; Start 09/07/16 at 00: 30 Enoxaparin Sodium 100 mg 100 mg Q12H SC Last administered on 09/07/16 02:07; Admin Dose 100 MG; Start 09/07/16 at 02:00 Propofol (Diprivan) 100 ml @ 3 mls/hr Q12H IV Last administered on 09/07/16 08: 11; Admin Dose 24 MLS/HR; Start 09/07/16 at 02:30 JEANIE PINO Sep 07, 2016 10:35
[2016-09-07 11:14] LABS: LACTIC ACID 1.6 mmol/L (0.5-2.2)
--- NOTE | 2016-09-07 11:15 | RADRPT ---
PROCEDURE: XR Chest. CLINICAL INDICATION: NG tube placement TECHNIQUE: 3 AP views of the lower chest and upper abdomen were obtained COMPARISON: None. FINDINGS: The tip of the enteric tube projects over the left mid abdomen. The visualized bowel is unremarkable . The visualized lung bases demonstrate focal consolidation of the right costophrenic angle. There is mild to moderate cardiomegaly. The osseous structures are unremarkable. IMPRESSION: Nasogastric tube tip is within the left mid abdomen, likely in the region of the gastric antrum. RPTAT: HH .Lucia Plascencia MD, MD Date Time Electronically viewed and signed by .Lucia Plascencia MD, on 09/07/2016 11:15 .G/
[2016-09-07] MEDS: INSULIN ASPART [NOVOLOG] 3 ML PEN SC SCH ×3 (12:34→21:00)
[2016-09-07 13:09] LABS: CK-MB 0.42 ng/ml (0.0-2.4)
[2016-09-07 13:19] LABS: TROPONIN-I 0.077 ng/ml (0.00-0.12)
--- NOTE | 2016-09-07 15:45 | RADRPT ---
Echocardiogram Report Patient Name: SAADIA VELÁQZUEZ Gender: Female Date: 1955 Study Date: 07-Sep-2016 Chemical Strength Tester: Marjorie Olivares [facility] [[email or web address]] Location: 120 Ref. Physician: ANNA ALLEN Quality: Good Procedures: Transthoracic echocardiogram with complete 2D, M-Mode, and doppler examination. Indications: Pulm Edema. 2D/M Mode Doppler Measurement Value Normal Ranges Measurement Value Normal Ranges LVIDd 2D 6.0 3.5 - 5.6 cm MV E Peak Kenji 1.2 m/sec LVIDs 2D 5.9 2.1 - 4.1 cm MV A Peak Kenji 1.0 m/sec FS 2D 0.8 % MV E/A 1.2 LVPWd 2D 1.0 0.6 - 1.1 cm MV Decel Time 173 msec IVSd 2D 1.0 0.6 - 1.1 cm MV E/A 1.2 IVS/LVPW 2D 1.0 TR Peak Kenji 2.9 m/sec AoR Diam 2D 2.3 2.0 - 3.7 cm TR Peak PG 35.0 mmHg LA/Ao 2D 2 0 - 1 RVSP 50.0 mmHg EDV 2D 213.0 cm3 ESV 2D 207.0 cm3 LA Dimen 2D 4.2 2.3 - 4.0 cm Findings Left Ventricle: Mild concentric left ventricular hypertrophy. Mild enlargement of left ventricle cavity. Severe left ventricular systolic dysfunction. Ejection fraction is visually estimated at 25 %. Abnormal Diastolic Function. Right Ventricle: Normal right ventricular systolic function. Pacemaker right heart. Left Atrium: There is moderate enlargement of left atrium. Right Atrium: There is moderate enlargement of right atrium. Mitral Valve: Mitral valve leaflets appear mildly thickened. Mild mitral annular calcification. Moderate mitral valve regurgitation. Aortic Valve: No significant aortic stenosis or insufficiency. Aortic cusps appear mildly calcified. Tricuspid Valve: Normal appearance of the tricuspid valve. Estimated peak PA systolic pressure 50 mmHg. There is moderate tricuspid regurgitation. Pulmonic Valve: Normal pulmonic valve appearance. There is mild pulmonic regurgitation. Pericardium: Trivial pericardial effusion. Aorta: Normal aortic root. IVC: Dilated IVC without respiratory collapse, however, patient on ventilator. Conclusions Mild concentric left ventricular hypertrophy. Mild enlargement of left ventricle cavity. Severe left ventricular systolic dysfunction. Ejection fraction is visually estimated at 25 %. Abnormal Diastolic Function. Normal right ventricular systolic function. Pacemaker right heart. There is moderate enlargement of left atrium. There is moderate enlargement of right atrium. Moderate mitral valve regurgitation. Estimated peak PA systolic pressure 50 mmHg. There is moderate tricuspid regurgitation. No significant aortic stenosis or insufficiency. Trivial pericardial effusion. Electronically Signed By: Ricardo Kingsley 07-Sep-2016 15:44:31 -0700 Patient Name: SAADIA VELÁZQUEZ Study Date: 07-Sep-2016 [id number]
--- NOTE | 2016-09-07 16:14 | CONS ---
Date/Time of Note Date/Time of Note DATE: 09/07/16 TIME: 16:10 Assessment/Plan Assessment/Plan Additional Assessment/Plan Acute decompensated systolic congestive heart failure Severe cardiomyopathy with ejection fraction 25% Respiratory failure Mildly elevated troponin History of hypertension Diabetes History of AICD -Patient's echocardiogram with evidence of severe cardiomyopathy with known history of AICD. Would continue Lasix IV at the current time, agree with Aldactone, will start LEA inhibitor for afterload reduction. If blood pressure remains stable, with start beta-enma in the next few days. Maintain potassium above 4.0 and magnesium above 2.0. Troponins are mildly elevated and are trending down, likely secondary to decompensated congestive heart failure. Continue aspirin and statin therapy. Consultation Date/Type/Reason Admit Date/Time Sep 06, 2016 at 20:38 Type of Consultation: cv Reason for Consultation Congestive heart failure Hx of Present Illness This is a 60-year-old female with past medical history of congestive heart failure with AICD, hypertension, diabetes who presented with worsening shortness of breath. History was obtained from the medical chart and from the nurse given patient intubated and no family available. As per ER records, patient was taken a shower and had acute shortness of breath. She came to the emergency room and was answering with 1 word answers with severe dyspnea. Given her worsening respiratory status, patient was intubated and transferred to the ICU for further management and care. As per nursing staff, patient's blood pressure has remained stable. Family was present today and in discussion with nursing staff, patient with noncompliance with diet intake. Unable to be performed at the current time given patient sedated and intubated Past Medical History Medical History: congestive heart failure, diabetes, hypertension Past Surgical History AICD Social History Smoking Status: Unknown if ever smoked Other Social History Lives at home Exam/Review of Systems Vital Signs Vitals Vital Signs Date Time Temp Pulse Resp B/P Pulse Ox O2 Delivery O2 Flow Rate FiO2 09/07/16 15:44 87 20 99 40 09/07/16 11:30 125/73 09/07/16 11:00 Mechanical Ventilator 09/07/16 08:00 99.0 Intake and Output 09/06/16 09/06/16 09/07/16 15:00 23:00 07:00 Intake Total 144 ml Output Total 900 ml Balance -756 ml Exam Sedated and intubated, no apparent distress Constitutional: obese Head: normocephalic ENMT: intubated Respiratory: other (Coarse breath sounds bilaterally with scattered crackles and decreased at the bases, no wheezing) Cardiovascular: other (S1-S2 heard), regular rate and rhythm, systolic murmur Gastrointestinal: bowel sounds, non-tender, other (No grimacing with palpation) , soft Extremities: edema Results Result Diagram: 09/07/16 0523 09/07/16 0523 Results 24 hrs Laboratory Tests Test 09/06/16 18:15 09/06/16 18:17 09/06/16 19:55 09/06/16 20:49 White Blood Count 10.2 Red Blood Count 4.80 Hemoglobin 14.4 Hematocrit 47.8 H Mean Corpuscular Volume 99.6 Mean Corpuscular Hemoglobin 30.0 Mean Corpuscular Hemoglobin Concent 30.1 L Red Cell Distribution Width 16.1 H Platelet Count 218 Mean Platelet Volume 10.9 H Neutrophils % 49.7 Lymphocytes % 37.7 Monocytes % 8.8 Eosinophils % 2.3 Basophils % 0.7 Nucleated Red Blood Cells % 0.2 H Neutrophils # 5.1 Lymphocytes # 3.8 H Monocytes # 0.9 Eosinophils # 0.2 Basophils # 0.1 Nucleated Red Blood Cells # 0.0 Prothrombin Time 17.1 H Prothrombin Time Ratio 1.3 INR International Normalized Ratio 1.39 Activated Partial Thromboplast Time 31.7 Sodium Level 146 H Potassium Level 3.4 L Chloride Level 101 Carbon Dioxide Level 21 Anion Gap 27 H Blood Urea Nitrogen 21 H Creatinine 1.50 H Glucose Level 267 H Calcium Level 9.5 Total Bilirubin 0.9 Direct Bilirubin 0.00 Indirect Bilirubin 0.9 Aspartate Amino Transf (AST/SGOT) 29 Alanine Aminotransferase (ALT/SGPT) 23 Alkaline Phosphatase 186 H Troponin I 0.028 B-Type Natriuretic Peptide 9080 H Total Protein 9.6 H Albumin 5.0 H Globulin 4.60 H Albumin/Globulin Ratio 1.08 Blood Gas Specimen Source Blood arterial Arterial Blood Date Drawn 09/06/2016 7:10:52 PM Arterial Blood pH (Temp corrected) 7.335 L Arterial Blood pCO2 (Temp correct) 48.5 H Arterial Blood pO2 (Temp corrected) 224.7 H Arterial Blood HCO3 25.3 Arterial Blood Base Excess -1.1 Arterial Blood Oxygen Saturation 99.2 H Antonio Test ACCEPTAB Arterial Blood Gas Puncture Site UAL Arterial Blood Carboxyhemoglobin 0 Arterial Blood Methemoglobin 0.5 Blood Gas A-a O2 Differential 439.8 H Oxyhemoglobin Percent 98.7 Total Hemoglobin 15.4 Blood Gas Temperature 37.0 Blood Gas Respiration Rate 20.0 Blood Gas Actual Respiration Rate 20 Blood Gas Modality VENT - AC FiO2 100.0 Blood Gas Tidal Volume 500.0 Blood Gas Low PEEP Setting 5.0 Blood Gas Inspiratory Pressure 29.0 Blood Gas Notified Whom AA Blood Gas Notified Time 09/06/2016 7:23:41 PM Urine Color LT. YELLOW Urine Clarity SLIGHTLY CLOUDY Urine pH 6.5 Urine Specific [place]arfish 1.020 Urine Ketones NEGATIVE Urine Nitrite NEGATIVE Urine Bilirubin NEGATIVE Urine Urobilinogen 0.2 E.U./dL Urine Leukocyte Esterase NEGATIVE Urine Microscopic RBC 5-10 Urine Microscopic WBC 0-2 Urine Squamous Epithelial Cells RARE Urine Hemoglobin 2+ H Urine Glucose NEGATIVE Urine Total Protein 2+ H Lactic Acid Level 3.6 H Ammonia 34 H Test 09/06/16 22:50 09/07/16 00:30 09/07/16 05:23 09/07/16 09:02 Lactic Acid Level 3.7 H 2.4 H Troponin I 0.158 *H 0.133 *H White Blood Count 9.8 Red Blood Count 4.25 Hemoglobin 12.5 Hematocrit 39.5 Mean Corpuscular Volume 92.9 Mean Corpuscular Hemoglobin 29.4 Mean Corpuscular Hemoglobin Concent 31.6 L Red Cell Distribution Width 16.1 H Platelet Count 220 Mean Platelet Volume 11.2 H Neutrophils % 77.4 H Lymphocytes % 15.1 Monocytes % 6.1 Eosinophils % 0.7 Basophils % 0.4 Nucleated Red Blood Cells % 0.0 Neutrophils # 7.6 H Lymphocytes # 1.5 Monocytes # 0.6 Eosinophils # 0.1 Basophils # 0.0 Nucleated Red Blood Cells # 0.0 Sodium Level 147 H Potassium Level 3.9 Chloride Level 107 Carbon Dioxide Level 27 Anion Gap 17 #H Blood Urea Nitrogen 22 H Creatinine 1.19 H Glucose Level 155 # Hemoglobin A1c 7.5 H Calcium Level 9.2 Magnesium Level 2.1 B-Type Natriuretic Peptide 53646 H Bedside Glucose 126 Test 09/07/16 10:37 09/07/16 12:25 09/07/16 12:32 Lactic Acid Level 1.6 Ammonia 12 Creatine Kinase 127 Creatine Kinase Index 0.3 Creatinine Kinase MB (Mass) 0.42 Troponin I 0.077 Bedside Glucose 119 Medications Medications Current Medications Ondansetron HCl (Zofran Inj) 4 mg Q6H PRN IV NAUSEA AND/OR VOMITING; Start 09/06 at 22:30 Acetaminophen (Tylenol Supp) 650 mg Q4H PRN [place] PAIN LEVEL 1-3 OR FEVER; Start 09/06/16 at 22:30 Hydromorphone HCl (Dilaudid) 0.5 mg Q4H PRN IV PAIN LEVEL 7-10; Start 09/06/16 at 22:30 Pantoprazole (Protonix Iv) 40 mg DAILY@06 IV Last administered on 09/07/16 06: 13; Admin Dose 40 MG; Start 09/07/16 at 06:00 Aspirin (Aspirin) 81 mg DAILY PO Last administered on 09/07/16 09:55; Admin Dose 81 MG; Start 09/06/16 at 22:30 Atorvastatin Calcium (Lipitor) 40 mg DAILY@21 PO Last administered on 09/07/16 03:09; Admin Dose 40 MG; Start 09/07/16 at 00:45 Furosemide (Lasix) 40 mg Q12H IV Last administered on 09/07/16 06:13; Admin Dose 40 MG; Start 09/07/16 at 06:00 Miscellaneous Information 1 ea NOTE XX ; Start 09/07/16 at 00:30 Glucose (Glutose) 15 gm Q15M PRN PO DECREASED GLUCOSE; Start 09/07/16 at 00:30 Glucose (Glutose) 22.5 gm Q15M PRN PO DECREASED GLUCOSE; Start 09/07/16 at 00:30 Dextrose (D50w Syringe) 25 ml Q15M PRN IV DECREASED GLUCOSE; Start 09/07/16 at 00:30 Dextrose (D50w Syringe) 50 ml Q15M PRN IV DECREASED GLUCOSE; Start 09/07/16 at 00:30 Glucagon (Glucagen) 1 mg Q15M PRN IM DECREASED GLUCOSE; Start 09/07/16 at 00:30 Glucose (Glutose) 15 gm Q15M PRN BUCCAL DECREASED GLUCOSE; Start 09/07/16 at 00: 30 Enoxaparin Sodium 100 mg 100 mg Q12H SC Last administered on 09/07/16 13:13; Admin Dose 100 MG; Start 09/07/16 at 02:00 Propofol (Diprivan) 100 ml @ 3 mls/hr Q12H IV Last administered on 09/07/16t 13: 12; Admin Dose 24 MLS/HR; Start 09/07/16 at 02:30 Insulin Aspart (Novolog Insulin Pen) NOVOLOG *MILD* ALGORI... Q4 SC ; Start 09/07 at 13:00 Procedures Procedures ECG demonstrates sinus rhythm at 83 bpm, QRS 132 ms, nonspecific STT wave abnormalities Ricardo Kingsley DO Sep 07, 2016 16:14
[2016-09-07] MEDS: SPIRONOLACTONE 25 MG TAB NGT SCH (17:21)
[2016-09-07] MEDS: FUROSEMIDE 40 MG INJ IV SCH (17:21)
[2016-09-07] MEDS: LISINOPRIL 5 MG TAB PO SCH (21:20)
--- NOTE | 2016-09-07 21:42 | RADRPT ---
PROCEDURE: Retroperitoneal US. CLINICAL INDICATION: Renal insufficiency TECHNIQUE: Multiple sonographic images of the kidneys and retroperitoneum were obtained. The imag es were reviewed on a PACS workstation. COMPARISON: 09/06/2016 FINDINGS: The kidneys are normal in size, contour, cortical thickness and cortical echogenicity. The right kidney measures 11 cm. The left kidney measures 10.4 cm. No kidney stones are visualized. There is a right extrarenal pelvis versus mild right-sided hydronep hrosis. The urinary bladder is normal. RPTAT: AA IMPRESSION: Mild right-sided hydronephrosis versus right extrarenal pelvis. .Ford Aquino MD, MD Date Time Electronically viewed and signed by .Ford Aquino MD, on 09/07/2016 21:42 .S/
[2016-09-08] VITALS (39 sets, daily range): BP systolic 98–144; BP diastolic 64–82; PULSE 74–87; RESP 20–21
[2016-09-08] MEDS: PROPOFOL 100 ML IV SCH ×7 (01:00→23:57)
[2016-09-08] MEDS: INSULIN ASPART [NOVOLOG] 3 ML PEN SC SCH ×6 (01:00→23:56)
[2016-09-08] MEDS: ALBUTEROL 18 GM INHALER INH SCH ×6 (01:32→21:52)
[2016-09-08] MEDS: IPRATROPIUM (HFA) 12.9 GM INHALER INH SCH ×6 (01:33→21:52)
[2016-09-08] MEDS: ENOXAPARIN 100 MG/ML SYG SC SCH (02:37)
[2016-09-08] MEDS: FUROSEMIDE 40 MG INJ IV SCH (05:22)
[2016-09-08] MEDS: SPIRONOLACTONE 25 MG TAB NGT SCH ×2 (05:23→17:50)
[2016-09-08] MEDS: PANTOPRAZOLE 40 MG INJ IV SCH (05:23)
[2016-09-08 07:02] LABS: ADD SCAN DIFF NO
[2016-09-08 07:06] LABS: BASOPHILS % 0.5 % (0.0-2.0); EOSINOPHILS # 0.1 10^3/ul (0.0-0.5); EOSINOPHILS % 1.3 % (0.0-7.0); HEMATOCRIT 37.8 % (37.0-47.0); HEMOGLOBIN 12.3 g/dl (12.0-16.0); LYMPHOCYTES # 1.4 10^3/ul (0.8-2.9); LYMPHOCYTES % 17.7 % (15.0-51.0); MEAN CORPUSCULAR HEMOGLOBIN 29.6 pg (29.0-33.0); MEAN CORPUSCULAR HGB CONC 32.5 g/dl (32.0-37.0); MEAN CORPUSCULAR VOLUME 90.9 fl (82.0-101.0); MEAN PLATELET VOLUME 11.3 fl (7.4-10.4); MONOCYTE # 0.6 10^3/ul (0.3-0.9); MONOCYTES % 8.2 % (0.0-11.0); NEUTROPHIL # 5.5 10^3/ul (1.6-7.5); NEUTROPHILS % 71.9 % (39.0-77.0); PLATELET COUNT 226 10^3/UL (140-415); RED BLOOD COUNT 4.16 10^6/ul (4.20-5.40); RED CELL DISTRIBUTION WIDTH 16.1 % (11.5-14.5); WHITE BLOOD COUNT 7.7 10^3/ul (4.8-10.8)
[2016-09-08 07:39] LABS: ALBUMIN 3.9 g/dl (3.3-4.9); ALBUMIN/GLOBULIN RATIO 1.05; BILIRUBIN,INDIRECT 1.2 mg/dl (0-1.1); BILIRUBIN,TOTAL 1.2 mg/dl (0.2-1.3); CALCIUM 8.8 mg/dl (8.4-10.2); CREATININE 1.4 mg/dl (0.44-1.00); POTASSIUM 3.5 mmol/L (3.5-5.1); TOTAL PROTEIN 7.6 g/dl (6.1-8.1)
[2016-09-08 07:40] LABS: MAGNESIUM 1.9 mg/dl (1.7-2.5)
[2016-09-08] MEDS: LISINOPRIL 5 MG TAB PO SCH ×2 (08:19→20:50)
[2016-09-08] MEDS: ASPIRIN 81 MG TAB PO SCH (08:19)
--- NOTE | 2016-09-08 09:00 | RADRPT ---
PROCEDURE: XR Chest. CLINICAL INDICATION: chf TECHNIQUE: Single frontal view of the chest was obtained. COMPARISON: Chest x-ray from 09/07/2016 FINDINGS: The endotracheal tube and enteric tube are unchanged in position. A left-sided pacemaker / AICD is again noted. There is stable severe cardiomegaly and mild pulmonary vascular congestion. There are stable small bilateral pleural effusions. There is a stable discoid opacity at the right lung base due to subsegmental atelectasis and / or infiltrate. There is a stable retrocardiac opaci ty due to atelectasis, infiltrate, and / or effusion. IMPRESSION: No significant interval change. RPTAT: EE Physician Ran Date Time Electronically viewed and signed by Wale Sorenson Physician on 09/08/2016 09:00 /
--- NOTE | 2016-09-08 09:13 | PN ---
Date/Time of Note Date/Time of Note DATE: 09/08/16 TIME: 08:56 Assessment/Plan VTE Prophylaxis VTE Prophylaxis Intervention: LMWH (treatment dosing ) Lines/Catheters IV Catheter Type (from Nrs): Peripheral IV Urinary Cath still in place: Yes Reason Cath still needed: other (indicate) (to monitor UOP ) Assessment/Plan Assessment/Plan 60 yo female with: 1. Acute Hypoxemic respiratory failure, likely 2ry yto pulmonary edema and CHF, ? triggered by acute cardiac event Diuresing and Pulmonary following for vent management, on Lasix and Aldactone Appreciate cardiac recs AICD in place and echo with EF of 25 %. 2. NSTEMI, with Cardiomyopathy EF 25%, s/p AICD. Cardiology, Dr Kingsley following and troponins back to normal Continue current meds and also ASA, Lovenox 3. Congestive Heart Failure, systolic dysfunction acute on chronic with EF of 25 % Appreciate recs from Dr Kingsley and diuresing well F/u CXR this AM Continue current meds 4. Cirrhosis, unknown history , so ? etiology. Ammonia OK and liver function OK Monitor LFTs and liver function 5. ILAN vs CKD, renal function remains fairly stable while being diuresed. Renal US ? mild right hydronephrosis Moraes in place, continue to monitor. 6. Hyperglycemia: On SSI, A1c 7.5. Prophylaxis: GI ppx with Protonix and on treatment dose of Lovenox for possible ACS. Disposition: ICU, Pulmonary and Cardiology following. Subjective 24 Hr Interval Summary Free Text/Dictation Patient doing Ok , still on Vent but diuresing well and hemodynamically stable so far Appreciate Pulmo and cardio recs Exam/Review of Systems Vital Signs Vitals Vital Signs Date Time Temp Pulse Resp B/P Pulse Ox O2 Delivery O2 Flow Rate FiO2 09/08/16 08:00 99.2 87 20 125/69 100 Mechanical Ventilator 09/08/16 05:40 40 Intake and Output 09/07/16 09/07/16 09/08/16 15:00 23:00 07:00 Intake Total 192 ml 144 ml 144 ml Output Total 1390 ml 955 ml 290 ml Balance -1198 ml -811 ml -146 ml Exam Constitutional: other (sedated and intubated ) Respiratory: diminished breath sounds (bases ), other (better aeration on exam and on Vent ) Cardiovascular: nl pulses, regular rate and rhythm Gastrointestinal: non-tender, soft Musculoskeletal: nl extremities to inspection Extremities: normal pulses, other (no edema, clubbing or cyanosis ) Neurological: other (sedated and intubated ) Results Result Diagram: 09/08/16 0530 09/08/16 0530 Results 24 hrs Laboratory Tests Test 09/07/16 09:02 09/07/16 10:37 09/07/16 12:25 09/07/16 12:32 Bedside Glucose 126 119 Lactic Acid Level 1.6 Ammonia 12 Creatine Kinase 127 Creatine Kinase Index 0.3 Creatinine Kinase MB (Mass) 0.42 Troponin I 0.077 Test 09/07/16 17:20 09/07/16 21:25 09/08/16 01:03 09/08/16 05:28 Bedside Glucose 133 113 114 123 Test 09/08/16 05:30 09/08/16 08:14 White Blood Count 7.7 # Red Blood Count 4.16 L Hemoglobin 12.3 Hematocrit 37.8 Mean Corpuscular Volume 90.9 Mean Corpuscular Hemoglobin 29.6 Mean Corpuscular Hemoglobin Concent 32.5 Red Cell Distribution Width 16.1 H Platelet Count 226 Mean Platelet Volume 11.3 H Neutrophils % 71.9 Lymphocytes % 17.7 Monocytes % 8.2 Eosinophils % 1.3 Basophils % 0.5 Nucleated Red Blood Cells % 0.0 Neutrophils # 5.5 Lymphocytes # 1.4 Monocytes # 0.6 Eosinophils # 0.1 Basophils # 0.0 Nucleated Red Blood Cells # 0.0 Sodium Level 145 H Potassium Level 3.5 Chloride Level 108 Carbon Dioxide Level 27 Anion Gap 14 Blood Urea Nitrogen 21 H Creatinine 1.40 H Glucose Level 123 Calcium Level 8.8 Phosphorus Level 4.0 Magnesium Level 1.9 Total Bilirubin 1.2 Direct Bilirubin 0.00 Indirect Bilirubin 1.2 H Aspartate Amino Transf (AST/SGOT) 21 Alanine Aminotransferase (ALT/SGPT) 28 Alkaline Phosphatase 162 H Ammonia 33 H Total Protein 7.6 # Albumin 3.9 # Globulin 3.70 H Albumin/Globulin Ratio 1.05 Bedside Glucose 124 Medications Medications Current Medications Ondansetron HCl (Zofran Inj) 4 mg Q6H PRN IV NAUSEA AND/OR VOMITING; Start 09/06 at 22:30 Acetaminophen (Tylenol Supp) 650 mg Q4H PRN [place] PAIN LEVEL 1-3 OR FEVER; Start 09/06/16 at 22:30 Hydromorphone HCl (Dilaudid) 0.5 mg Q4H PRN IV PAIN LEVEL 7-10; Start 09/06/16 at 22:30 Pantoprazole (Protonix Iv) 40 mg DAILY@06 IV Last administered on 09/08/16 05: 23; Admin Dose 40 MG; Start 09/07/16 at 06:00 Aspirin (Aspirin) 81 mg DAILY PO Last administered on 09/08/16 08:19; Admin Dose 81 MG; Start 09/06/16 at 22:30 Atorvastatin Calcium (Lipitor) 40 mg DAILY@21 PO Last administered on 09/07/16 21:20; Admin Dose 40 MG; Start 09/07/16 at 00:45 Miscellaneous Information 1 ea NOTE XX ; Start 09/07/16 at 00:30 Glucose (Glutose) 15 gm Q15M PRN PO DECREASED GLUCOSE; Start 09/07/16 at 00:30 Glucose (Glutose) 22.5 gm Q15M PRN PO DECREASED GLUCOSE; Start 09/07/16 at 00:30 Dextrose (D50w Syringe) 25 ml Q15M PRN IV DECREASED GLUCOSE; Start 09/07/16 at 00:30 Dextrose (D50w Syringe) 50 ml Q15M PRN IV DECREASED GLUCOSE; Start 09/07/16 at 00:30 Glucagon (Glucagen) 1 mg Q15M PRN IM DECREASED GLUCOSE; Start 09/07/16 at 00:30 Glucose (Glutose) 15 gm Q15M PRN BUCCAL DECREASED GLUCOSE; Start 09/07/16 at 00: 30 Enoxaparin Sodium 100 mg 100 mg Q12H SC Last administered on 09/08/16 02:37; Admin Dose 100 MG; Start 09/07/16 at 02:00 Propofol (Diprivan) 100 ml @ 3 mls/hr Q12H IV Last administered on 09/08/16 08: 50; Admin Dose 24 MLS/HR; Start 09/07/16 at 02:30 Insulin Aspart (Novolog Insulin Pen) NOVOLOG *MILD* ALGORI... Q4 SC ; Start 09/07 at 13:00 Lisinopril (Zestril) 2.5 mg BID PO Last administered on 09/08/16 08:19; Admin Dose 2.5 MG; Start 09/07/16 at 21:00 Procedures Procedures Echocardiogram Report Patient Name: SAADIA VELÁZQUEZ Gender: Female Date: 1955 Study Date: 07-Sep-2016 Purchasing/Receiving: Marjorie Olivares RDCS Location: 120 Ref. Physician: ANNA ALLEN Quality: Good Procedures: Transthoracic echocardiogram with complete 2D, M-Mode, and doppler examination. Indications: Pulm Edema. 2D/M Mode Doppler Measurement Value Normal Ranges Measurement Value Normal Ranges LVIDd 2D 6.0 3.5 - 5.6 cm MV E Peak Kenji 1.2 m/sec LVIDs 2D 5.9 2.1 - 4.1 cm MV A Peak Kenji 1.0 m/sec FS 2D 0.8 % MV E/A 1.2 LVPWd 2D 1.0 0.6 - 1.1 cm MV Decel Time 173 msec IVSd 2D 1.0 0.6 - 1.1 cm MV E/A 1.2 IVS/LVPW 2D 1.0 TR Peak Kenji 2.9 m/sec AoR Diam 2D 2.3 2.0 - 3.7 cm TR Peak PG 35.0 mmHg LA/Ao 2D 2 0 - 1 RVSP 50.0 mmHg EDV 2D 213.0 cm3 ESV 2D 207.0 cm3 LA Dimen 2D 4.2 2.3 - 4.0 cm Findings Left Ventricle: Mild concentric left ventricular hypertrophy. Mild enlargement of left ventricle cavity. Severe left ventricular systolic dysfunction. Ejection fraction is visually estimated at 25 %. Abnormal Diastolic Function. Right Ventricle: Normal right ventricular systolic function. Pacemaker right heart. Left Atrium: There is moderate enlargement of left atrium. Right Atrium: There is moderate enlargement of right atrium. Mitral Valve: Mitral valve leaflets appear mildly thickened. Mild mitral annular calcification. Moderate mitral valve regurgitation. Aortic Valve: No significant aortic stenosis or insufficiency. Aortic cusps appear mildly calcified. Tricuspid Valve: Normal appearance of the tricuspid valve. Estimated peak PA systolic pressure 50 mmHg. There is moderate tricuspid regurgitation. Pulmonic Valve: Normal pulmonic valve appearance. There is mild pulmonic regurgitation. Pericardium: Trivial pericardial effusion. Aorta: Normal aortic root. IVC: Dilated IVC without respiratory collapse, however, patient on ventilator. Conclusions Mild concentric left ventricular hypertrophy. Mild enlargement of left ventricle cavity. Severe left ventricular systolic dysfunction. Ejection fraction is visually estimated at 25 %. Abnormal Diastolic Function. Normal right ventricular systolic function. Pacemaker right heart. There is moderate enlargement of left atrium. There is moderate enlargement of right atrium. Moderate mitral valve regurgitation. Estimated peak PA systolic pressure 50 mmHg. There is moderate tricuspid regurgitation. No significant aortic stenosis or insufficiency. Trivial pericardial effusion. PROCEDURE: Retroperitoneal US. CLINICAL INDICATION: Renal insufficiency TECHNIQUE: Multiple sonographic images of the kidneys and retroperitoneum were obtained. The images were reviewed on a PACS workstation. COMPARISON: 09/06/2016 FINDINGS: The kidneys are normal in size, contour, cortical thickness and cortical echogenicity. The right kidney measures 11 cm. The left kidney measures 10.4 cm. No kidney stones are visualized. There is a right extrarenal pelvis versus mild right-sided hydronephrosis. The urinary bladder is normal. IMPRESSION: Mild right-sided hydronephrosis versus right extrarenal pelvis. MACKENZIE ESCOBAR Sep 08, 2016 09:09
--- NOTE | 2016-09-08 09:14 | CONS ---
Date/Time of Note Date/Time of Note DATE: 09/08/16 TIME: 09:10 Assessment/Plan Assessment/Plan Additional Assessment/Plan Chest x-ray was reviewed from today which is showing significant improvement in pulmonary edema. Ventilator setting; patient on assist control 20, tidal volume 500, PEEP of 5, 40% FiO2. Propofol 40 mics per kilogram per minute. Assessment recommendations; 1. Patient admitted for respiratory failure due to flash pulmonary edema likely from underlying cardiomyopathy and acute GA. 2. History of diabetes, hypertension, renal insufficiency. 3. History of cardiac arrhythmia, status post pacemaker placement in the past. 4. Mild increase in serum creatinine, likely a diuretic response. 5. Significant improvement in chest x-ray today. 6. No evidence of any infective process currently. Next Continue current treatment. Decrease Lasix to 40 mg IV daily. Further recommendations per Dr. Kingsley. His input is appreciated. Consultation Date/Type/Reason Admit Date/Time Sep 06, 2016 at 20:38 Initial Consult Date 09/07/16 Type of Consultation: Pulmonary/critical care 24 HR Interval Summary Free Text/Dictation Patient condition remains critical. Patient however has remained hemodynamically stable. No untoward events reported. General exam; elderly lady, orally intubated, sedated, currently in no distress. Exam/Review of Systems Vital Signs Vitals Vital Signs Date Time Temp Pulse Resp B/P Pulse Ox O2 Delivery O2 Flow Rate FiO2 09/08/16 09:01 86 09/08/16 08:00 99.2 20 125/69 100 Mechanical Ventilator 09/08/16 08:00 40 Intake and Output 09/07/16 09/07/16 09/08/16 15:00 23:00 07:00 Intake Total 192 ml 144 ml 144 ml Output Total 1390 ml 955 ml 290 ml Balance -1198 ml -811 ml -146 ml Exam HEENT exam; supple neck, positive JVD. No lymphadenopathy. Midline trachea. No thyromegaly. Orally intubated. Dentition is fair. Pupils are equal and reactive to light bilaterally. Chest examined; minimally decreased breath on lung bases, upper lobes are clear to auscultation. S1-S2 audible, no murmurs. Regular rhythm. There is a pacemaker in the left chest wall. Abdomen examination; soft, no distention. No organomegaly. Bowel sounds audible. Extremity exam; no peripheral edema. Pulses 1+ bilaterally. HOSPITALIST MEDICAL DIRECTOR examination; patient is sedated. Results Result Diagram: 09/08/16 0530 09/08/16 0530 Results 24 hrs Laboratory Tests Test 09/07/16 10:37 09/07/16 12:25 09/07/16 12:32 09/07/16 17:20 Lactic Acid Level 1.6 Ammonia 12 Creatine Kinase 127 Creatine Kinase Index 0.3 Creatinine Kinase MB (Mass) 0.42 Troponin I 0.077 Bedside Glucose 119 133 Test 09/07/16 21:25 09/08/16 01:03 09/08/16 05:28 09/08/16 05:30 Bedside Glucose 113 114 123 White Blood Count 7.7 # Red Blood Count 4.16 L Hemoglobin 12.3 Hematocrit 37.8 Mean Corpuscular Volume 90.9 Mean Corpuscular Hemoglobin 29.6 Mean Corpuscular Hemoglobin Concent 32.5 Red Cell Distribution Width 16.1 H Platelet Count 226 Mean Platelet Volume 11.3 H Neutrophils % 71.9 Lymphocytes % 17.7 Monocytes % 8.2 Eosinophils % 1.3 Basophils % 0.5 Nucleated Red Blood Cells % 0.0 Neutrophils # 5.5 Lymphocytes # 1.4 Monocytes # 0.6 Eosinophils # 0.1 Basophils # 0.0 Nucleated Red Blood Cells # 0.0 Sodium Level 145 H Potassium Level 3.5 Chloride Level 108 Carbon Dioxide Level 27 Anion Gap 14 Blood Urea Nitrogen 21 H Creatinine 1.40 H Glucose Level 123 Calcium Level 8.8 Phosphorus Level 4.0 Magnesium Level 1.9 Total Bilirubin 1.2 Direct Bilirubin 0.00 Indirect Bilirubin 1.2 H Aspartate Amino Transf (AST/SGOT) 21 Alanine Aminotransferase (ALT/SGPT) 28 Alkaline Phosphatase 162 H Ammonia 33 H Total Protein 7.6 # Albumin 3.9 # Globulin 3.70 H Albumin/Globulin Ratio 1.05 Test 09/08/16 08:14 Bedside Glucose 124 Medications Medications Current Medications Ondansetron HCl (Zofran Inj) 4 mg Q6H PRN IV NAUSEA AND/OR VOMITING; Start 09/06 at 22:30 Acetaminophen (Tylenol Supp) 650 mg Q4H PRN [place] PAIN LEVEL 1-3 OR FEVER; Start 09/06/16 at 22:30 Hydromorphone HCl (Dilaudid) 0.5 mg Q4H PRN IV PAIN LEVEL 7-10; Start 09/06/16 at 22:30 Pantoprazole (Protonix Iv) 40 mg DAILY@06 IV Last administered on 09/08/16 05: 23; Admin Dose 40 MG; Start 09/07/16 at 06:00 Aspirin (Aspirin) 81 mg DAILY PO Last administered on 09/08/16 08:19; Admin Dose 81 MG; Start 09/06/16 at 22:30 Atorvastatin Calcium (Lipitor) 40 mg DAILY@21 PO Last administered on 09/07/16 21:20; Admin Dose 40 MG; Start 09/07/16 at 00:45 Miscellaneous Information 1 ea NOTE XX ; Start 09/07/16 at 00:30 Glucose (Glutose) 15 gm Q15M PRN PO DECREASED GLUCOSE; Start 09/07/16 at 00:30 Glucose (Glutose) 22.5 gm Q15M PRN PO DECREASED GLUCOSE; Start 09/07/16 at 00:30 Dextrose (D50w Syringe) 25 ml Q15M PRN IV DECREASED GLUCOSE; Start 09/07/16 at 00:30 Dextrose (D50w Syringe) 50 ml Q15M PRN IV DECREASED GLUCOSE; Start 09/07/16 at 00:30 Glucagon (Glucagen) 1 mg Q15M PRN IM DECREASED GLUCOSE; Start 09/07/16 at 00:30 Glucose (Glutose) 15 gm Q15M PRN BUCCAL DECREASED GLUCOSE; Start 09/07/16 at 00: 30 Enoxaparin Sodium 100 mg 100 mg Q12H SC Last administered on 09/08/16 02:37; Admin Dose 100 MG; Start 09/07/16 at 02:00 Propofol (Diprivan) 100 ml @ 3 mls/hr Q12H IV Last administered on 09/08/16 08: 50; Admin Dose 24 MLS/HR; Start 09/07/16 at 02:30 Insulin Aspart (Novolog Insulin Pen) NOVOLOG *MILD* ALGORI... Q4 SC ; Start 09/07 at 13:00 Lisinopril (Zestril) 2.5 mg BID PO Last administered on 09/08/16 08:19; Admin Dose 2.5 MG; Start 09/07/16 at 21:00 JEANIE PINO Sep 08, 2016 09:14
--- NOTE | 2016-09-08 13:12 | CONS ---
Date/Time of Note Date/Time of Note DATE: 09/08/16 TIME: 13:06 Assessment/Plan Assessment/Plan Additional Assessment/Plan Acute decompensated systolic congestive heart failure Severe cardiomyopathy with ejection fraction 25% Respiratory failure Mildly elevated troponin History of hypertension Diabetes History of AICD -Extensive discussion had with family at bedside. Patient with progressive worsening shortness of breath the past few days prior to admission. She also recently underwent a paracentesis 1 month ago secondary to increased abdominal distention presumed from congestive heart failure. Patient with known diagnosis of congestive heart failure for over a year and a half and had AICD placed one half years ago. Family does admit to poor diet compliance. No known cardiac workup at that time and patient's family does not know. I requested them to get workup done by primary mixer blender in [place]. Minimal troponin elevation likely secondary to decompensated congestive heart failure. Would change Lovenox dose to DVT prophylaxis dose. Continue aspirin and statin therapy. Lasix dose has been decreased secondary to rising creatinine. If blood pressure remains stable over the next 1-2 days, start beta-enma. Vent management as per our pulmonary colleagues. If no contraindication, would start enteric feeding. Consultation Date/Type/Reason Admit Date/Time Sep 06, 2016 at 20:38 Initial Consult Date 09/07/16 Type of Consultation: cv 24 HR Interval Summary Free Text/Dictation Patient seen and examined. Good urine output with IV Lasix as per nursing staff. Family at bedside. Patient with progressive worsening shortness of breath the past few days prior to admission. Furthermore underwent paracentesis 1 month ago secondary to fluid buildup and was told secondary to her congestive heart failure. Exam/Review of Systems Vital Signs Vitals Vital Signs Date Time Temp Pulse Resp B/P Pulse Ox O2 Delivery O2 Flow Rate FiO2 09/08/16 12:36 75 09/08/16 11:00 20 107/64 100 Mechanical Ventilator 09/08/16 08:00 99.2 09/08/16 08:00 40 Intake and Output 09/07/16 09/07/16 09/08/16 15:00 23:00 07:00 Intake Total 192 ml 144 ml 144 ml Output Total 1390 ml 955 ml 290 ml Balance -1198 ml -811 ml -146 ml Exam Sedated and intubated, no apparent distress Constitutional: obese Head: normocephalic ENMT: intubated Respiratory: other (Coarse breath sounds bilaterally, decreased at the bases, no wheezing) Cardiovascular: other, regular rate and rhythm, systolic murmur Extremities: edema, other (No cyanosis) Results Result Diagram: 09/08/16 0530 09/08/16 0530 Results 24 hrs Laboratory Tests Test 09/07/16 17:20 09/07/16 21:25 09/08/16 01:03 09/08/16 05:28 Bedside Glucose 133 113 114 123 Test 09/08/16 05:30 09/08/16 08:14 09/08/16 12:13 White Blood Count 7.7 # Red Blood Count 4.16 L Hemoglobin 12.3 Hematocrit 37.8 Mean Corpuscular Volume 90.9 Mean Corpuscular Hemoglobin 29.6 Mean Corpuscular Hemoglobin Concent 32.5 Red Cell Distribution Width 16.1 H Platelet Count 226 Mean Platelet Volume 11.3 H Neutrophils % 71.9 Lymphocytes % 17.7 Monocytes % 8.2 Eosinophils % 1.3 Basophils % 0.5 Nucleated Red Blood Cells % 0.0 Neutrophils # 5.5 Lymphocytes # 1.4 Monocytes # 0.6 Eosinophils # 0.1 Basophils # 0.0 Nucleated Red Blood Cells # 0.0 Sodium Level 145 H Potassium Level 3.5 Chloride Level 108 Carbon Dioxide Level 27 Anion Gap 14 Blood Urea Nitrogen 21 H Creatinine 1.40 H Glucose Level 123 Calcium Level 8.8 Phosphorus Level 4.0 Magnesium Level 1.9 Total Bilirubin 1.2 Direct Bilirubin 0.00 Indirect Bilirubin 1.2 H Aspartate Amino Transf (AST/SGOT) 21 Alanine Aminotransferase (ALT/SGPT) 28 Alkaline Phosphatase 162 H Ammonia 33 H Total Protein 7.6 # Albumin 3.9 # Globulin 3.70 H Albumin/Globulin Ratio 1.05 Bedside Glucose 124 116 Medications Medications Current Medications Ondansetron HCl (Zofran Inj) 4 mg Q6H PRN IV NAUSEA AND/OR VOMITING; Start 09/06 at 22:30 Acetaminophen (Tylenol Supp) 650 mg Q4H PRN [place] PAIN LEVEL 1-3 OR FEVER; Start 09/06/16 at 22:30 Hydromorphone HCl (Dilaudid) 0.5 mg Q4H PRN IV PAIN LEVEL 7-10; Start 09/06/16 at 22:30 Pantoprazole (Protonix Iv) 40 mg DAILY@06 IV Last administered on 09/08/16 05: 23; Admin Dose 40 MG; Start 09/07/16 at 06:00 Aspirin (Aspirin) 81 mg DAILY PO Last administered on 09/08/16 08:19; Admin Dose 81 MG; Start 09/06/16 at 22:30 Atorvastatin Calcium (Lipitor) 40 mg DAILY@21 PO Last administered on 09/07/16 21:20; Admin Dose 40 MG; Start 09/07/16 at 00:45 Miscellaneous Information 1 ea NOTE XX ; Start 09/07/16 at 00:30 Glucose (Glutose) 15 gm Q15M PRN PO DECREASED GLUCOSE; Start 09/07/16 at 00:30 Glucose (Glutose) 22.5 gm Q15M PRN PO DECREASED GLUCOSE; Start 09/07/16 at 00:30 Dextrose (D50w Syringe) 25 ml Q15M PRN IV DECREASED GLUCOSE; Start 09/07/16 at 00:30 Dextrose (D50w Syringe) 50 ml Q15M PRN IV DECREASED GLUCOSE; Start 09/07/16 at 00:30 Glucagon (Glucagen) 1 mg Q15M PRN IM DECREASED GLUCOSE; Start 09/07/16 at 00:30 Glucose (Glutose) 15 gm Q15M PRN BUCCAL DECREASED GLUCOSE; Start 09/07/16 at 00: 30 Enoxaparin Sodium 100 mg 100 mg Q12H SC Last administered on 09/08/16 02:37; Admin Dose 100 MG; Start 09/07/16 at 02:00 Propofol (Diprivan) 100 ml @ 3 mls/hr Q12H IV Last administered on 09/08/16 12: 17; Admin Dose 24 MLS/HR; Start 09/07/16 at 02:30 Insulin Aspart (Novolog Insulin Pen) NOVOLOG *MILD* ALGORI... Q4 SC ; Start 09/07 at 13:00 Lisinopril (Zestril) 2.5 mg BID PO Last administered on 09/08/16 08:19; Admin Dose 2.5 MG; Start 09/07/16 at 21:00 Furosemide (Lasix) 40 mg DAILY@06 IV ; Start 09/09/16 at 06:00 Ricardo Kingsley DO Sep 08, 2016 13:12
[2016-09-08] MEDS ORDERED: POTASSIUM CHLORIDE 20 MEQ POWDER FOR ORAL SOLN NGT ONE (13:30)
[2016-09-08] MEDS ORDERED: MAGNESIUM SULFATE 2 GM/50 ML 50 ML IVPB ONE (13:30)
[2016-09-08] MEDS: MUPIROCIN 2% 22 GM OINT TOP SCH ×2 (15:28→20:50)
[2016-09-08] MEDS: ATORVASTATIN 40 MG TAB PO SCH (20:50)
[2016-09-09] VITALS (38 sets, daily range): BP systolic 97–127; BP diastolic 50–99; PULSE 70–160; RESP 20–21
[2016-09-09] MEDS: IPRATROPIUM (HFA) 12.9 GM INHALER INH SCH ×6 (01:27→21:04)
[2016-09-09] MEDS: ALBUTEROL 18 GM INHALER INH SCH ×6 (01:27→21:03)
[2016-09-09] MEDS: PANTOPRAZOLE 40 MG INJ IV SCH (05:26)
[2016-09-09] MEDS: FUROSEMIDE 40 MG INJ IV SCH (05:26)
[2016-09-09] MEDS: SPIRONOLACTONE 25 MG TAB NGT SCH ×2 (05:27→17:50)
[2016-09-09] MEDS: PROPOFOL 100 ML IV SCH ×5 (05:27→21:08)
[2016-09-09 05:44] LABS: ADD SCAN DIFF NO
[2016-09-09 05:49] LABS: BASOPHILS % 0.2 % (0.0-2.0); EOSINOPHILS # 0.1 10^3/ul (0.0-0.5); EOSINOPHILS % 1.2 % (0.0-7.0); HEMATOCRIT 40.8 % (37.0-47.0); HEMOGLOBIN 12.9 g/dl (12.0-16.0); LYMPHOCYTES # 1.1 10^3/ul (0.8-2.9); LYMPHOCYTES % 10.2 % (15.0-51.0); MEAN CORPUSCULAR HEMOGLOBIN 29.1 pg (29.0-33.0); MEAN CORPUSCULAR HGB CONC 31.6 g/dl (32.0-37.0); MEAN CORPUSCULAR VOLUME 92.1 fl (82.0-101.0); MEAN PLATELET VOLUME 11.2 fl (7.4-10.4); MONOCYTE # 0.8 10^3/ul (0.3-0.9); MONOCYTES % 7.3 % (0.0-11.0); NEUTROPHIL # 8.4 10^3/ul (1.6-7.5); NEUTROPHILS % 80.6 % (39.0-77.0); PLATELET COUNT 219 10^3/UL (140-415); RED BLOOD COUNT 4.43 10^6/ul (4.20-5.40); RED CELL DISTRIBUTION WIDTH 16.8 % (11.5-14.5); WHITE BLOOD COUNT 10.4 10^3/ul (4.8-10.8)
[2016-09-09 06:22] LABS: ALBUMIN 4.1 g/dl (3.3-4.9); BILIRUBIN,DIRECT 0.1 mg/dl (0.00-0.20); BILIRUBIN,INDIRECT 1.2 mg/dl (0-1.1); BILIRUBIN,TOTAL 1.3 mg/dl (0.2-1.3); CALCIUM 8.9 mg/dl (8.4-10.2); CREATININE 1.36 mg/dl (0.44-1.00); POTASSIUM 3.5 mmol/L (3.5-5.1); TOTAL PROTEIN 8.2 g/dl (6.1-8.1)
[2016-09-09 06:29] LABS: MAGNESIUM 2.7 mg/dl (1.7-2.5)
[2016-09-09] MEDS: INSULIN ASPART [NOVOLOG] 3 ML PEN SC SCH ×3 (06:47→17:50)
[2016-09-09] MEDS: ASPIRIN 81 MG TAB PO SCH (08:33)
[2016-09-09] MEDS: LISINOPRIL 5 MG TAB PO SCH ×2 (08:34→20:32)
[2016-09-09] MEDS: ENOXAPARIN 40 MG/0.4 ML SYG SC SCH (08:34)
[2016-09-09] MEDS: MUPIROCIN 2% 22 GM OINT TOP SCH ×2 (08:35→20:32)
--- NOTE | 2016-09-09 10:18 | PN ---
Date/Time of Note Date/Time of Note DATE: 09/09/16 TIME: 10:10 Assessment/Plan VTE Prophylaxis VTE Prophylaxis Intervention: LMWH Lines/Catheters IV Catheter Type (from Nrs): Saline Lock Urinary Cath still in place: Yes Reason Cath still needed: other (indicate) (ILAN, monitoring UOP ) Assessment/Plan Assessment/Plan 60 yo female with: 1. Acute Hypoxemic respiratory failure, likely 2ry yto pulmonary edema and CHF, ? triggered by acute cardiac event Diuresing and Pulmonary following for vent management, on Lasix and Aldactone Appreciate cardiac recs AICD in place and echo with EF of 25 %. 2. NSTEMI, with Cardiomyopathy EF 25%, s/p AICD. Patient noted to have a couple episodes of NSVT overnight Cardiology, Dr Kingsley following and troponins back to normal Continue current meds and also ASA, Lovenox Repleting electrolytes prn 3. Congestive Heart Failure, systolic dysfunction acute on chronic with EF of 25 % Appreciate recs from Dr Kingsley and diuresing with lower dose of Lasix and Aldactone Continue current meds May need to hold LEA inhibitor 4. Cirrhosis, unknown history , so ? etiology. Ammonia OK and liver function OK . CT abdo/perlvis with NO masses just cirrhosis and small fat containing umbilical hernia Monitor LFTs and liver function 5. ILAN vs CKD, renal function remains fairly stable while being diuresed. Renal US ? mild right hydronephrosis Moraes in place, continue to monitor. 6. Hyperglycemia: On SSI, A1c 7.5. Prophylaxis: GI ppx with Protonix and on ppx dose of Lovenox now. Disposition: ICU, Pulmonary and Cardiology following. Subjective 24 Hr Interval Summary Free Text/Dictation Patent intubated and sedated VSS on diuresis A couple of episodes of NSVT overnight Exam/Review of Systems Vital Signs Vitals Vital Signs Date Time Temp Pulse Resp B/P Pulse Ox O2 Delivery O2 Flow Rate FiO2 09/09/16 08:00 77 09/09/16 07:40 20 100 40 09/09/16 06:00 127/98 Mechanical Ventilator 09/09/16 04:00 99.2 Intake and Output 09/08/16 09/08/16 09/09/16 15:00 23:00 07:00 Intake Total 432 ml 384 ml 371 ml Output Total 1135 ml 245 ml 280 ml Balance -703 ml 139 ml 91 ml Exam Constitutional: other (sedated and intubated ) Respiratory: diminished breath sounds (at bases but better ), other (on Vent ) Cardiovascular: nl pulses, regular rate and rhythm Gastrointestinal: non-tender, soft Musculoskeletal: nl extremities to inspection, other (no edema, clubbing or cyanosis ) Extremities: normal pulses Neurological: other (sedated and intubated ) Results Result Diagram: 09/09/16 0500 09/09/16 0500 Results 24 hrs Laboratory Tests Test 09/08/16 12:13 09/08/16 16:54 09/08/16 23:55 09/09/16 05:00 Bedside Glucose 116 117 134 White Blood Count 10.4 # Red Blood Count 4.43 Hemoglobin 12.9 Hematocrit 40.8 Mean Corpuscular Volume 92.1 Mean Corpuscular Hemoglobin 29.1 Mean Corpuscular Hemoglobin Concent 31.6 L Red Cell Distribution Width 16.8 H Platelet Count 219 Mean Platelet Volume 11.2 H Neutrophils % 80.6 H Lymphocytes % 10.2 L Monocytes % 7.3 Eosinophils % 1.2 Basophils % 0.2 Nucleated Red Blood Cells % 0.0 Neutrophils # 8.4 H Lymphocytes # 1.1 Monocytes # 0.8 Eosinophils # 0.1 Basophils # 0.0 Nucleated Red Blood Cells # 0.0 Sodium Level 143 Potassium Level 3.5 Chloride Level 108 Carbon Dioxide Level 27 Anion Gap 12 Blood Urea Nitrogen 24 H Creatinine 1.36 H Glucose Level 188 Calcium Level 8.9 Phosphorus Level 4.0 Magnesium Level 2.7 H Total Bilirubin 1.3 Direct Bilirubin 0.10 Indirect Bilirubin 1.2 H Aspartate Amino Transf (AST/SGOT) 22 Alanine Aminotransferase (ALT/SGPT) 25 Alkaline Phosphatase 185 H Total Protein 8.2 H Albumin 4.1 Globulin 4.10 H Albumin/Globulin Ratio 1.00 Test 09/09/16 05:09 09/09/16 06:45 Bedside Glucose 171 177 Medications Medications Current Medications Ondansetron HCl (Zofran Inj) 4 mg Q6H PRN IV NAUSEA AND/OR VOMITING; Start 09/06 at 22:30 Acetaminophen (Tylenol Supp) 650 mg Q4H PRN [place] PAIN LEVEL 1-3 OR FEVER; Start 09/06/16 at 22:30 Hydromorphone HCl (Dilaudid) 0.5 mg Q4H PRN IV PAIN LEVEL 7-10; Start 09/06/16 at 22:30 Pantoprazole (Protonix Iv) 40 mg DAILY@06 IV Last administered on 09/09/16 05: 26; Admin Dose 40 MG; Start 09/07/16 at 06:00 Aspirin (Aspirin) 81 mg DAILY PO Last administered on 09/09/16 08:33; Admin Dose 81 MG; Start 09/06/16 at 22:30 Atorvastatin Calcium (Lipitor) 40 mg DAILY@21 PO Last administered on 09/08/16 20:50; Admin Dose 40 MG; Start 09/07/16 at 00:45 Miscellaneous Information 1 ea NOTE XX ; Start 09/07/16 at 00:30 Glucose (Glutose) 15 gm Q15M PRN PO DECREASED GLUCOSE; Start 09/07/16 at 00:30 Glucose (Glutose) 22.5 gm Q15M PRN PO DECREASED GLUCOSE; Start 09/07/16 at 00:30 Dextrose (D50w Syringe) 25 ml Q15M PRN IV DECREASED GLUCOSE; Start 09/07/16 at 00:30 Dextrose (D50w Syringe) 50 ml Q15M PRN IV DECREASED GLUCOSE; Start 09/07/16 at 00:30 Glucagon (Glucagen) 1 mg Q15M PRN IM DECREASED GLUCOSE; Start 09/07/16 at 00:30 Glucose 15 gm 15 gm Q15M PRN BUCCAL DECREASED GLUCOSE; Start 09/07/16 at 00:30 Propofol (Diprivan) 100 ml @ 3 mls/hr Q12H IV Last administered on 09/09/16 08 :35; Admin Dose 21 MLS/HR; Start 09/07/16 at 02:30 Lisinopril (Zestril) 2.5 mg BID PO Last administered on 09/09/16 08:34; Admin Dose 2.5 MG; Start 09/07/16 at 21:00 Furosemide (Lasix) 40 mg DAILY@06 IV Last administered on 09/09/16 05:26; Admin Dose 40 MG; Start 09/09/16 at 06:00 Enoxaparin Sodium (Lovenox) 40 mg DAILY SC Last administered on 09/09/16 08:34 ; Admin Dose 40 MG; Start 09/09/16 at 09:00 Mupirocin (Bactroban) 1 applic BID TOP Last administered on 09/09/16 08:35; Admin Dose 1 APPLIC; Start 09/08/16 at 14:00; Stop 09/21/16 at 21:01 Insulin Aspart (Novolog Insulin Pen) NOVOLOG *MILD* ALGORI... Q6 SC Last administered on 09/09/16 06:47; Admin Dose 2 UNIT; Start 09/09/16 at 00:00 Procedures Procedures PROCEDURE: CT Abdomen and Pelvis without contrast CLINICAL INDICATION: Abdominal pain TECHNIQUE: Transaxial images were obtained through the abdomen and pelvis on a multi-slice scanner without the intravenous contrast administration. No oral contrast had previously been given. Sagittal and coronal re-formations were subsequently reconstructed. One or more of the following dose reduction techniques were used: - Automated exposure control. - Adjustment of the mA and/or kV according to patient size. - Use of iterative reconstruction technique. Radiation dose: CTDIvol = 23.10 mGy; DLP = 1560.42 mGy-cm. COMPARISON: No prior studies are available for comparison. FINDINGS: Lung bases: An endotracheal tube is seen to be in place. Subsegmental atelectasis is seen within the posterior right upper lobe, posterior right lower lobe and discoid atelectasis is seen in the posterior left upper lobe and lower lobe. Artifact from pacemaker leads are seen to the heart and there is moderate cardiomegaly. Liver: The liver is enlarged and heterogeneous with a slightly nodular contour which can be seen in cirrhosis. No discrete focal lesion is identified. Gallbladder: There is cholelithiasis but the gallbladder wall does not appear thickened. Bile ducts: The intra and extrahepatic bile ducts are normal in caliber. Pancreas: Appears normal with no mass or inflammation evident. Spleen: Normal in size with no focal lesion. Adrenals: Normal with no mass identified. Kidneys, ureters and bladder: The kidneys are normal in size and there is no mass, pathological calcification, or hydronephrosis evident. There is no perinephric stranding. The ureters are normal in caliber and no ureteroliths are identified. A Moraes catheter is seen within a nondistended bladder along with a small amount of intraluminal air. Reproductive organs: The uterus is enlarged and midline. No adnexal mass is identified. Stomach and bowel: The stomach is moderately distended with fluid and food debris. There is no evidence of bowel obstruction or inflammation. Appendix: The vermiform appendix is not discretely identified. Peritoneum: There is a moderate amount of water density free intraperitoneal fluid. No free air is identified. There is a small fat containing umbilical hernia. Aorta: There is atherosclerotic vascular calcification but no abdominal aortic aneurysm is evident. IVC: Unremarkable. Lymph nodes: No pathologically enlarged nodes are identified. Osseous structures: Moderate degenerative endplate changes are evident most extensive within the thoracic spine region. IMPRESSION: 1. Endotracheal tube in place. 2. A permanent pacemaker and leads are evident and there is moderate cardiomegaly. 3. Subsegmental atelectatic change seen within the posterior lung cabrera. 4. Hepatomegaly with a cirrhotic appearing liver but no discrete focal lesion. 5. Cholelithiasis not associated gallbladder wall thickening, bile duct dilatation or pancreatic pathology. 6. Enlarged midline uterus with no adnexal mass evident. 7. Moderate amount of water density free intraperitoneal fluid with no free air identified. 8. The stomach is moderately distended with fluid and food debris but there is no evidence of bowel obstruction or inflammation. The vermiform appendix is not discretely identified. 9. Small fat containing umbilical hernia. 10. No evidence of urinary outflow obstruction. A Moraes catheter is seen in a nondistended bladder. 11. Atherosclerotic vascular calcification with degenerative spine changes. Physician Thiago Date Time Electronically viewed and signed by Physician Thiago on 09/06/2016 21:26 MACKENZIE ESCOBAR Sep 09, 2016 10:18
[2016-09-09] MEDS ORDERED: POTASSIUM CHLORIDE 20 MEQ POWDER FOR ORAL SOLN NGT ONE (10:30)
--- NOTE | 2016-09-09 12:58 | PN ---
DATE: 09/09/2016 CARDIOLOGY FOLLOWUP PROGRESS NOTE SUBJECTIVE: Discussed with the staff. Rhythm strip was reviewed. The patient remains in sinus rhy thm. Short runs of nonsustained VT. Patient is status post intubation on the vent. Has not been a ble to be weaned off yet. Currently sedated; however, according to the nursing staff, discussed the patient's sedation vacation and follows commands. MEDICATIONS: Reviewed, which include: 1. Lasix IV daily. 2. Insulin. 3. Lisinopril 2.5 b.i.d. 4. Aldactone. 5. Protonix. 6. Propofol drip. 7. Atrovent. 8. Lipitor. 9. Aspirin. PHYSICAL EXAMINATION: VITAL SIGNS: Temperature 98.3, heart rate is 82, blood pressure 110/55, respiration rate of 20, sat urating 98%. HEENT: Normocephalic, atraumatic. Status post intubation on the vent. Eyes are closed. CARDIOVASCULAR: Regular rate and rhythm, systolic murmur. PULMONARY: Anteriorly with no wheezes heard. Mild rhonchi at the base. GASTROINTESTINAL: Soft, nontender. EXTREMITIES: Positive lower extremity edema. NEUROLOGIC: Is sedated. PSYCHIATRIC: Appears to be calm. LABORATORY: Sodium 143, potassium 3.5, BUN of 24, creatinine 1.36, glucose 188. Magnesium is 2.7. Troponin, most recent one on 09/07/2016 was 0.077. Chest x-ray done yesterday shows no significant change. Severe cardiomegaly, mild pulmonary vascular congestion. ASSESSMENT AND PLAN: 1. Hypoxemia and hypercapnic respiratory failure, status post intubation now. Currently, ventilato r dependent. 2. Severe cardiomyopathy, ejection fraction of 25%. 3. Congestive heart failure, acute on chronic, secondary to systolic heart failure. 4. Mildly abnormal troponin, most likely related to the above. 5. Essential hypertension. 5. Status post implantable cardioverter defibrillator placement. 6. Diabetes. 7. Encephalopathy. 8. History of cirrhosis. 9. Diabetes, monitor very closely. RECOMMENDATIONS: Continue with diuretics and adjust as needed. Aldactone will be continued as well at the current dose. Lisinopril as tolerated will be continued and try to increase as needed. We will continue with vent support and ICU care. No ICD discharge has been noted here. We will closel y monitor her in the ICU. More than 38 minutes of critical care time was spent managing this patient, excluding any procedures . Dictated By: ANDRADE LEROY/LINH Conf#: [id number] DID#: [id number] CC: MACKENZIE ESCOBAR MD;*EndCC*
--- NOTE | 2016-09-09 17:23 | CONS ---
Date/Time of Note Date/Time of Note DATE: 09/09/16 TIME: 17:19 Consult Date/Type/Reason Admit Date/Time Sep 06, 2016 at 20:38 Initial Consult Date 09/07/16 Type of Consultation: Pulm/CCM Subjective Sedated on vent. No events. Objective Vital Signs Date Time Temp Pulse Resp B/P Pulse Ox O2 Delivery O2 Flow Rate FiO2 09/09/16 17:01 77 20 100 40 09/09/16 16:00 100.4 103/56 Mechanical Ventilator Intake and Output 09/08/16 09/08/16 09/09/16 15:00 23:00 07:00 Intake Total 432 ml 384 ml 411 ml Output Total 1135 ml 245 ml 280 ml Balance -703 ml 139 ml 131 ml Exam HEENT: Neck supple; no JVD; no LAD CVS: RRR, S1 and S2 CHEST: Clear anteriorly ABD: Soft, NT, + BS EXT: trace edema Results/Medications Result Diagram: 09/09/16 0500 09/09/16 0500 Results 24 hrs Laboratory Tests Test 09/08/16 23:55 09/09/16 05:00 09/09/16 05:09 09/09/16 06:45 Bedside Glucose 134 171 177 White Blood Count 10.4 # Red Blood Count 4.43 Hemoglobin 12.9 Hematocrit 40.8 Mean Corpuscular Volume 92.1 Mean Corpuscular Hemoglobin 29.1 Mean Corpuscular Hemoglobin Concent 31.6 L Red Cell Distribution Width 16.8 H Platelet Count 219 Mean Platelet Volume 11.2 H Neutrophils % 80.6 H Lymphocytes % 10.2 L Monocytes % 7.3 Eosinophils % 1.2 Basophils % 0.2 Nucleated Red Blood Cells % 0.0 Neutrophils # 8.4 H Lymphocytes # 1.1 Monocytes # 0.8 Eosinophils # 0.1 Basophils # 0.0 Nucleated Red Blood Cells # 0.0 Sodium Level 143 Potassium Level 3.5 Chloride Level 108 Carbon Dioxide Level 27 Anion Gap 12 Blood Urea Nitrogen 24 H Creatinine 1.36 H Glucose Level 188 Calcium Level 8.9 Phosphorus Level 4.0 Magnesium Level 2.7 H Total Bilirubin 1.3 Direct Bilirubin 0.10 Indirect Bilirubin 1.2 H Aspartate Amino Transf (AST/SGOT) 22 Alanine Aminotransferase (ALT/SGPT) 25 Alkaline Phosphatase 185 H Total Protein 8.2 H Albumin 4.1 Globulin 4.10 H Albumin/Globulin Ratio 1.00 Test 09/09/16 12:04 Bedside Glucose 159 Medications Current Medications Ondansetron HCl (Zofran Inj) 4 mg Q6H PRN IV NAUSEA AND/OR VOMITING; Start 09/06 at 22:30 Acetaminophen (Tylenol Supp) 650 mg Q4H PRN [place] PAIN LEVEL 1-3 OR FEVER; Start 09/06/16 at 22:30 Hydromorphone HCl (Dilaudid) 0.5 mg Q4H PRN IV PAIN LEVEL 7-10; Start 09/06/16 at 22:30 Pantoprazole (Protonix Iv) 40 mg DAILY@06 IV Last administered on 09/09/16 05: 26; Admin Dose 40 MG; Start 09/07/16 at 06:00 Aspirin (Aspirin) 81 mg DAILY PO Last administered on 09/09/16 08:33; Admin Dose 81 MG; Start 09/06/16 at 22:30 Atorvastatin Calcium (Lipitor) 40 mg DAILY@21 PO Last administered on 09/08/16 20:50; Admin Dose 40 MG; Start 09/07/16 at 00:45 Miscellaneous Information 1 ea NOTE XX ; Start 09/07/16 at 00:30 Glucose (Glutose) 15 gm Q15M PRN PO DECREASED GLUCOSE; Start 09/07/16 at 00:30 Glucose (Glutose) 22.5 gm Q15M PRN PO DECREASED GLUCOSE; Start 09/07/16 at 00:30 Dextrose (D50w Syringe) 25 ml Q15M PRN IV DECREASED GLUCOSE; Start 09/07/16 at 00:30 Dextrose (D50w Syringe) 50 ml Q15M PRN IV DECREASED GLUCOSE; Start 09/07/16 at 00:30 Glucagon (Glucagen) 1 mg Q15M PRN IM DECREASED GLUCOSE; Start 09/07/16 at 00:30 Glucose 15 gm 15 gm Q15M PRN BUCCAL DECREASED GLUCOSE; Start 09/07/16 at 00:30 Propofol (Diprivan) 100 ml @ 3 mls/hr Q12H IV Last administered on 09/09/16 16 :24; Admin Dose 21 MLS/HR; Start 09/07/16 at 02:30 Lisinopril (Zestril) 2.5 mg BID PO Last administered on 09/09/16 08:34; Admin Dose 2.5 MG; Start 09/07/16 at 21:00 Furosemide (Lasix) 40 mg DAILY@06 IV Last administered on 09/09/16 05:26; Admin Dose 40 MG; Start 09/09/16 at 06:00 Enoxaparin Sodium (Lovenox) 40 mg DAILY SC Last administered on 09/09/16 08:34 ; Admin Dose 40 MG; Start 09/09/16 at 09:00 Mupirocin (Bactroban) 1 applic BID TOP Last administered on 09/09/16 08:35; Admin Dose 1 APPLIC; Start 09/08/16 at 14:00; Stop 09/21/16 at 21:01 Insulin Aspart (Novolog Insulin Pen) NOVOLOG *MILD* ALGORI... Q6 SC Last administered on 09/09/16 12:06; Admin Dose 1 UNIT; Start 09/09/16 at 00:00 Assessment/Plan Additional Assessment/Plan IMP: 1. Acute Hypoxemic respiratory failure 2. Acute Decompensated HF 3. Demand Ischemia 4. Azotemia--? cardiorenal 5. s/p AICD RECS: 1. Continue diuresis 2. Increase afterload reduction with lisinopril 3. CPAP/PS in am 4. Daily sedation vacation 35 min cc time 2. NSTEMI, with Cardiomyopathy EF 25%, s/p AICD. Patient noted to have a couple episodes of NSVT overnight Cardiology, Dr Kingsley following and troponins back to normal Continue current meds and also ASA, Lovenox Repleting electrolytes prn 3. Congestive Heart Failure, systolic dysfunction acute on chronic with EF of 25 % Appreciate recs from Dr Kingsley and eddi with lower dose of Lasix and Aldactone Continue current meds May need to hold LEA inhibitor 4. Cirrhosis, unknown history , so ? etiology. Ammonia OK and liver function OK . CT abdo/perlvis with NO masses just cirrhosis and small fat containing umbilical hernia Monitor LFTs and liver function TEE ABRAMS MD Sep 09, 2016 17:23
[2016-09-09] MEDS: ATORVASTATIN 40 MG TAB PO SCH (20:32)
[2016-09-10] VITALS (40 sets, daily range): BP systolic 105–158; BP diastolic 56–111; PULSE 70–107; RESP 18–42
[2016-09-10] MEDS: INSULIN ASPART [NOVOLOG] 3 ML PEN SC SCH ×5 (00:21→20:45)
[2016-09-10] MEDS: IPRATROPIUM (HFA) 12.9 GM INHALER INH SCH ×6 (01:01→21:02)
[2016-09-10] MEDS: ALBUTEROL 18 GM INHALER INH SCH ×6 (01:01→21:02)
[2016-09-10] MEDS: PROPOFOL 100 ML IV SCH ×5 (02:18→22:11)
[2016-09-10] MEDS: SPIRONOLACTONE 25 MG TAB NGT SCH ×2 (05:52→17:25)
[2016-09-10] MEDS: PANTOPRAZOLE 40 MG INJ IV SCH (05:52)
[2016-09-10] MEDS: FUROSEMIDE 40 MG INJ IV SCH (05:52)
[2016-09-10 06:12] LABS: ADD SCAN DIFF NO
[2016-09-10 06:19] LABS: BASOPHILS % 0.3 % (0.0-2.0); EOSINOPHILS # 0.3 10^3/ul (0.0-0.5); EOSINOPHILS % 2.8 % (0.0-7.0); HEMATOCRIT 37.9 % (37.0-47.0); HEMOGLOBIN 12.2 g/dl (12.0-16.0); LYMPHOCYTES # 1.1 10^3/ul (0.8-2.9); LYMPHOCYTES % 12.3 % (15.0-51.0); MEAN CORPUSCULAR HEMOGLOBIN 29.7 pg (29.0-33.0); MEAN CORPUSCULAR HGB CONC 32.2 g/dl (32.0-37.0); MEAN CORPUSCULAR VOLUME 92.2 fl (82.0-101.0); MEAN PLATELET VOLUME 11.2 fl (7.4-10.4); MONOCYTE # 0.8 10^3/ul (0.3-0.9); MONOCYTES % 8.6 % (0.0-11.0); NEUTROPHIL # 6.7 10^3/ul (1.6-7.5); NEUTROPHILS % 75.7 % (39.0-77.0); PLATELET COUNT 219 10^3/UL (140-415); RED BLOOD COUNT 4.11 10^6/ul (4.20-5.40); RED CELL DISTRIBUTION WIDTH 16.3 % (11.5-14.5); WHITE BLOOD COUNT 8.9 10^3/ul (4.8-10.8)
[2016-09-10 06:40] LABS: INR 1.29; PROTIME 16.2 Sec (12.2-14.2); PT RATIO 1.3
[2016-09-10 06:41] LABS: PARTIAL THROMBOPLASTIN TIME 37.1 Sec (25.0-35.0)
[2016-09-10 06:49] LABS: ALBUMIN 3.9 g/dl (3.3-4.9); ALBUMIN/GLOBULIN RATIO 0.95; BILIRUBIN,INDIRECT 0.7 mg/dl (0-1.1); BILIRUBIN,TOTAL 0.7 mg/dl (0.2-1.3); CALCIUM 8.9 mg/dl (8.4-10.2); CREATININE 1.36 mg/dl (0.44-1.00); POTASSIUM 3.6 mmol/L (3.5-5.1)
[2016-09-10 07:02] LABS: MAGNESIUM 2.7 mg/dl (1.7-2.5); PHOSPHORUS 3.9 mg/dl (2.5-4.9)
[2016-09-10] MEDS: LISINOPRIL 5 MG TAB PO SCH ×2 (09:11→20:39)
[2016-09-10] MEDS: ASPIRIN 81 MG TAB PO SCH (09:11)
[2016-09-10] MEDS: MUPIROCIN 2% 22 GM OINT TOP SCH ×2 (09:12→20:40)
[2016-09-10] MEDS: ENOXAPARIN 40 MG/0.4 ML SYG SC SCH (09:17)
--- NOTE | 2016-09-10 09:39 | RADRPT ---
PROCEDURE: XR Chest. CLINICAL INDICATION: Pneumothorax. TECHNIQUE: Single frontal view of the chest was obtained. COMPARISON: Chest x-ray 09/08/2016. FINDINGS: A single channel AICD device is identified over the upper left chest wall with electrode leads proje cting at the level of the right ventricle. There are degenerative osteophytes in the thoracic spine . The heart is enlarged. The cardiomediastinal silhouette and hilar structures are normal. The pul monary vasculature is upper limits of normal. There are vascular calcifications in the aortic arch. There are areas of consolidative infiltrate and atelectasis in the bases of the lungs which are lit tle changed. Small pleural effusions are suspected. An endotracheal tube and NG tube are noted in p lace. IMPRESSION: 1. No significant change is identified compared to 09/08/2016. 2. The endotracheal tube is still in place with its tip 2.2 cm superior to the curry. It could be withdrawn 2.3 cm for better positioning near T3-4. 3. Satisfactory positioning of an NG tube distal to the GE junction. RPTAT:AAJJ Physician Marcelino Date Time Electronically viewed and signed by Physician Marcelino on 09/10/2016 09:38 CHUCKY/
--- NOTE | 2016-09-10 11:29 | PN ---
Date/Time of Note Date/Time of Note DATE: 09/10/16 TIME: 11:14 Assessment/Plan VTE Prophylaxis VTE Prophylaxis Intervention: LMWH Lines/Catheters IV Catheter Type (from Nrs): Saline Lock Urinary Cath still in place: Yes Reason Cath still needed: other (indicate) (monitor UOP ) Assessment/Plan Assessment/Plan 60 yo female with: 1. Acute Hypoxemic respiratory failure, likely 2ry yto pulmonary edema and CHF, ? triggered by acute cardiac event Diuresing and Pulmonary following for vent management, on Lasix and Aldactone Appreciate cardiac recs AICD in place and echo with EF of 25 %. 2. NSTEMI, with Cardiomyopathy EF 25%, s/p AICD. Patient noted to have a couple episodes of NSVT overnight Cardiology, Dr Kingsley following and troponins back to normal Continue current meds and also ASA, Lovenox Repleting electrolytes prn 3. Congestive Heart Failure, systolic dysfunction acute on chronic with EF of 25 % Appreciate recs from Dr Kingsley and diuresing with lower dose of Lasix and Aldactone Continue current meds May need to hold LEA inhibitor 4. Cirrhosis, unknown history , so ? etiology. Ammonia OK and liver function OK . CT abdo/perlvis with NO masses just cirrhosis and small fat containing umbilical hernia Monitor LFTs and liver function 5. ILAN vs CKD, renal function remains fairly stable while being diuresed with Lasix 40 mg IV daily+Aldactone 25 mg po bid Renal US ? mild right hydronephrosis Moraes in place, continue to monitor. 6. Hyperglycemia: On SSI, A1c 7.5. Prophylaxis: GI ppx with Protonix and on ppx dose of Lovenox now. Disposition: ICU, Pulmonary and Cardiology following. Subjective 24 Hr Interval Summary Free Text/Dictation Patient doing well this AM and alert, aware and stable Patient on CPAP trial x 1 hr, not tolerated Exam/Review of Systems Vital Signs Vitals Vital Signs Date Time Temp Pulse Resp B/P Pulse Ox O2 Delivery O2 Flow Rate FiO2 09/10/16 10:00 87 24 100 40 09/10/16 09:00 121/75 Mechanical Ventilator 09/10/16 08:00 98.7 Intake and Output 09/09/16 09/09/16 09/10/16 15:00 23:00 07:00 Intake Total 533 ml 518 ml 499 ml Output Total 985 ml 280 ml 540 ml Balance -452 ml 238 ml -41 ml Exam Constitutional: alert, oriented (x2) Respiratory: diminished breath sounds (breath sounds bases but improved aeration ), other (on CPAP) Cardiovascular: nl pulses, regular rate and rhythm Gastrointestinal: non-tender, other (umbilical hernis ), soft Musculoskeletal: nl extremities to inspection, other (no anasarca today ) Extremities: normal pulses Neurological: FOUNTAIN ATTENDANT II-XII intact, nl mental status, other (intubated ) Results Result Diagram: 09/10/168 09/10/168 Results 24 hrs Laboratory Tests Test 09/09/16 12:04 09/09/16 17:50 09/10/16 00:18 09/10/16 04:48 Bedside Glucose 159 134 155 White Blood Count 8.9 Red Blood Count 4.11 L Hemoglobin 12.2 Hematocrit 37.9 Mean Corpuscular Volume 92.2 Mean Corpuscular Hemoglobin 29.7 Mean Corpuscular Hemoglobin Concent 32.2 Red Cell Distribution Width 16.3 H Platelet Count 219 Mean Platelet Volume 11.2 H Neutrophils % 75.7 Lymphocytes % 12.3 L Monocytes % 8.6 Eosinophils % 2.8 Basophils % 0.3 Nucleated Red Blood Cells % 0.0 Neutrophils # 6.7 Lymphocytes # 1.1 Monocytes # 0.8 Eosinophils # 0.3 Basophils # 0.0 Nucleated Red Blood Cells # 0.0 Prothrombin Time 16.2 H Prothrombin Time Ratio 1.3 INR International Normalized Ratio 1.29 Activated Partial Thromboplast Time 37.1 H Sodium Level 143 Potassium Level 3.6 Chloride Level 107 Carbon Dioxide Level 26 Anion Gap 14 Blood Urea Nitrogen 29 H Creatinine 1.36 H Glucose Level 181 Calcium Level 8.9 Phosphorus Level 3.9 Magnesium Level 2.7 H Total Bilirubin 0.7 Direct Bilirubin 0.00 Indirect Bilirubin 0.7 Aspartate Amino Transf (AST/SGOT) 19 Alanine Aminotransferase (ALT/SGPT) 24 Alkaline Phosphatase 185 H Total Protein 8.0 Albumin 3.9 Globulin 4.10 H Albumin/Globulin Ratio 0.95 Test 09/10/16 06:02 Bedside Glucose 163 Medications Medications Current Medications Ondansetron HCl (Zofran Inj) 4 mg Q6H PRN IV NAUSEA AND/OR VOMITING; Start 09/06 at 22:30 Acetaminophen (Tylenol Supp) 650 mg Q4H PRN [place] PAIN LEVEL 1-3 OR FEVER Last administered on 09/09/16 17:50; Admin Dose 650 MG; Start 09/06/16 at 22:30 Hydromorphone HCl (Dilaudid) 0.5 mg Q4H PRN IV PAIN LEVEL 7-10; Start 09/06/16 at 22:30 Pantoprazole (Protonix Iv) 40 mg DAILY@06 IV Last administered on 09/10/16 05: 52; Admin Dose 40 MG; Start 09/07/16 at 06:00 Aspirin (Aspirin) 81 mg DAILY PO Last administered on 09/10/16 09:11; Admin Dose 81 MG; Start 09/06/16 at 22:30 Atorvastatin Calcium (Lipitor) 40 mg DAILY@21 PO Last administered on 20:32; Admin Dose 40 MG; Start 09/07/16 at 00:45 Miscellaneous Information 1 ea NOTE XX ; Start 09/07/16 at 00:30 Glucose (Glutose) 15 gm Q15M PRN PO DECREASED GLUCOSE; Start 09/07/16 at 00:30 Glucose (Glutose) 22.5 gm Q15M PRN PO DECREASED GLUCOSE; Start 09/07/16 at 00:30 Dextrose (D50w Syringe) 25 ml Q15M PRN IV DECREASED GLUCOSE; Start 09/07/16 at 00:30 Dextrose (D50w Syringe) 50 ml Q15M PRN IV DECREASED GLUCOSE; Start 09/07/16 at 00:30 Glucagon (Glucagen) 1 mg Q15M PRN IM DECREASED GLUCOSE; Start 09/07/16 at 00:30 Glucose 15 gm 15 gm Q15M PRN BUCCAL DECREASED GLUCOSE; Start 09/07/16 at 00:30 Propofol (Diprivan) 100 ml @ 3 mls/hr Q12H IV Last administered on 09/10/16 05 :54; Admin Dose 21 MLS/HR; Start 09/07/16 at 02:30 Lisinopril (Zestril) 2.5 mg BID PO Last administered on 09/10/16 09:11; Admin Dose 2.5 MG; Start 09/07/16 at 21:00 Furosemide (Lasix) 40 mg DAILY@06 IV Last administered on 09/10/16 05:52; Admin Dose 40 MG; Start 09/09/16 at 06:00 Enoxaparin Sodium (Lovenox) 40 mg DAILY SC Last administered on 09/10/16 09:17 ; Admin Dose 40 MG; Start 09/09/16 at 09:00 Mupirocin (Bactroban) 1 applic BID TOP Last administered on 09/10/16 09:12; Admin Dose 1 APPLIC; Start 09/08/16 at 14:00; Stop 09/21/16 at 21:01 Insulin Aspart (Novolog Insulin Pen) NOVOLOG *MILD* ALGORI... Q6 SC Last administered on 09/10/16 06:07; Admin Dose 1 UNIT; Start 09/09/16 at 00:00 MACKENZIE ESCOBAR Sep 10, 2016 11:24
--- NOTE | 2016-09-10 13:35 | PN ---
DATE: 09/10/2016 CARDIOLOGY FOLLOWUP SUBJECTIVE: Discussed with the staff. Rhythm strip was reviewed. The patient remains intubated on the vent. Remains in sinus rhythm. A short episode of nonsustained VT noted. The patient denies any chest pain or pressure to me. Currently he is placed on CPAP and weaning trial. Was intubated in ICU. Blood pressure on the low side but stable. MEDICATIONS: Reviewed, which include: 1. Lovenox 40. 2. IV Lasix 40 daily. 3. Lisinopril 2.5 b.i.d. 4. Aldactone 25. 5. Protonix. 6. Atrovent. 7. Lipitor. 8. Aspirin. PHYSICAL EXAMINATION: VITAL SIGNS: Temperature 98.7, heart rate of 87, blood pressure 120/75, respiration rate of 24, sat urating 100%. HEENT: Normocephalic, atraumatic. Status post intubation on the vent. Appears to be tachypneic. CARDIOVASCULAR: Regular rate and rhythm, systolic murmur. PULMONARY: Mild rhonchi, diffuse. GASTROINTESTINAL: Soft, nontender. EXTREMITIES: Positive edema. NEUROLOGIC: Awake, responds appropriately follow commands. PSYCHIATRIC: Appears to be calm. LABORATORY: WBC of 8.9, hemoglobin 12.2, platelets of 219. Sodium 143, potassium 3.6, BUN of 29, c reatinine 0.36, glucose 181. Mag is 2.5. Albumin is 3.9. IMAGING: Chest x-ray was done this morning, which showed no significant change compared to 09/09/19 17 chest x-ray. Pulmonary vasculature is upper limits of normal, per radiology report. ASSESSMENT AND PLAN: 1. Hypoxemia respiratory failure, status post intubation on the vent. 2. Congestive heart failure, acute on chronic, secondary to systolic heart failure. 3. Congestive cardiomyopathy, ejection fraction about 25% with mildly abnormal troponin, most likel y related to above. 4. Hypertension. 5. History of ICD. 6. Diabetes. 7. History of cirrhosis. 8. Encephalopathy. RECOMMENDATIONS: Weaning trial will be attempted she is able to tolerate it. Continue with the Las ix. Lisinopril as tolerated will be continued, to be increased once the patient is able to tolerate it better. We will continue to monitor on telemetry, and ICU care will be continued closely. We w ill check electrolytes again tomorrow. Aldactone will be continued. Statin will be continued. More than 37 minutes of critical care time was spent managing this patient excluding any procedures. Dictated By: ANDRADE CORREIA MD AV/LINH Conf#: [id number] DID#: [id number] CC: MACKENZIE ESCOBAR MD;*EndCC*
--- NOTE | 2016-09-10 16:20 | CONS ---
Date/Time of Note Date/Time of Note DATE: 09/10/16 TIME: 16:17 Consult Date/Type/Reason Admit Date/Time Sep 06, 2016 at 20:38 Initial Consult Date 09/07/16 Type of Consultation: Pulm/CCM Subjective Failed CPAP trial this am, though staff concerned that it may have been related to agitation. Objective Vital Signs Date Time Temp Pulse Resp B/P Pulse Ox O2 Delivery O2 Flow Rate FiO2 09/10/16 15:00 82 20 134/71 99 Mechanical Ventilator 09/10/16 13:13 40 09/10/16 12:00 98.0 Intake and Output 09/09/16 09/09/16 09/10/16 14:59 22:59 06:59 Intake Total 509 ml 521 ml 499 ml Output Total 940 ml 285 ml 230 ml Balance -431 ml 236 ml 269 ml Exam HEENT: Neck supple; no JVD; no LAD CVS: RRR, S1 and S2 CHEST: Clear anteriorly ABD: Soft, NT, + BS EXT: trace edema Results/Medications Result Diagram: 09/10/16 0448 09/10/16 0448 Results 24 hrs Laboratory Tests Test 09/09/16 17:50 09/10/16 00:18 09/10/16 04:48 09/10/16 06:02 Bedside Glucose 134 155 163 White Blood Count 8.9 Red Blood Count 4.11 L Hemoglobin 12.2 Hematocrit 37.9 Mean Corpuscular Volume 92.2 Mean Corpuscular Hemoglobin 29.7 Mean Corpuscular Hemoglobin Concent 32.2 Red Cell Distribution Width 16.3 H Platelet Count 219 Mean Platelet Volume 11.2 H Neutrophils % 75.7 Lymphocytes % 12.3 L Monocytes % 8.6 Eosinophils % 2.8 Basophils % 0.3 Nucleated Red Blood Cells % 0.0 Neutrophils # 6.7 Lymphocytes # 1.1 Monocytes # 0.8 Eosinophils # 0.3 Basophils # 0.0 Nucleated Red Blood Cells # 0.0 Prothrombin Time 16.2 H Prothrombin Time Ratio 1.3 INR International Normalized Ratio 1.29 Activated Partial Thromboplast Time 37.1 H Sodium Level 143 Potassium Level 3.6 Chloride Level 107 Carbon Dioxide Level 26 Anion Gap 14 Blood Urea Nitrogen 29 H Creatinine 1.36 H Glucose Level 181 Calcium Level 8.9 Phosphorus Level 3.9 Magnesium Level 2.7 H Total Bilirubin 0.7 Direct Bilirubin 0.00 Indirect Bilirubin 0.7 Aspartate Amino Transf (AST/SGOT) 19 Alanine Aminotransferase (ALT/SGPT) 24 Alkaline Phosphatase 185 H Total Protein 8.0 Albumin 3.9 Globulin 4.10 H Albumin/Globulin Ratio 0.95 Test 09/10/16 12:31 Bedside Glucose 138 Medications Current Medications Ondansetron HCl (Zofran Inj) 4 mg Q6H PRN IV NAUSEA AND/OR VOMITING; Start 09/06 at 22:30 Acetaminophen (Tylenol Supp) 650 mg Q4H PRN [place] PAIN LEVEL 1-3 OR FEVER Last administered on 09/09/16 17:50; Admin Dose 650 MG; Start 09/06/16 at 22:30 Hydromorphone HCl (Dilaudid) 0.5 mg Q4H PRN IV PAIN LEVEL 7-10; Start 09/06/16 at 22:30 Pantoprazole (Protonix Iv) 40 mg DAILY@06 IV Last administered on 09/10/16 05: 52; Admin Dose 40 MG; Start 09/07/16 at 06:00 Aspirin (Aspirin) 81 mg DAILY PO Last administered on 09/10/16 09:11; Admin Dose 81 MG; Start 09/06/16 at 22:30 Atorvastatin Calcium (Lipitor) 40 mg DAILY@21 PO Last administered on 20:32; Admin Dose 40 MG; Start 09/07/16 at 00:45 Miscellaneous Information 1 ea NOTE XX ; Start 09/07/16 at 00:30 Glucose (Glutose) 15 gm Q15M PRN PO DECREASED GLUCOSE; Start 09/07/16 at 00:30 Glucose (Glutose) 22.5 gm Q15M PRN PO DECREASED GLUCOSE; Start 09/07/16 at 00:30 Dextrose (D50w Syringe) 25 ml Q15M PRN IV DECREASED GLUCOSE; Start 09/07/16 at 00:30 Dextrose (D50w Syringe) 50 ml Q15M PRN IV DECREASED GLUCOSE; Start 09/07/16 at 00:30 Glucagon (Glucagen) 1 mg Q15M PRN IM DECREASED GLUCOSE; Start 09/07/16 at 00:30 Glucose 15 gm 15 gm Q15M PRN BUCCAL DECREASED GLUCOSE; Start 09/07/16 at 00:30 Propofol (Diprivan) 100 ml @ 3 mls/hr Q12H IV Last administered on 09/10/16 12 :29; Admin Dose 15 MLS/HR; Start 09/07/16 at 02:30 Lisinopril (Zestril) 2.5 mg BID PO Last administered on 09/10/16 09:11; Admin Dose 2.5 MG; Start 09/07/16 at 21:00 Furosemide (Lasix) 40 mg DAILY@06 IV Last administered on 09/10/16 05:52; Admin Dose 40 MG; Start 09/09/16 at 06:00 Enoxaparin Sodium (Lovenox) 40 mg DAILY SC Last administered on 09/10/16 09:17 ; Admin Dose 40 MG; Start 09/09/16 at 09:00 Mupirocin (Bactroban) 1 applic BID TOP Last administered on 09/10/16 09:12; Admin Dose 1 APPLIC; Start 09/08/16 at 14:00; Stop 09/21/16 at 21:01 Insulin Aspart (Novolog Insulin Pen) NOVOLOG *MILD* ALGORI... Q6 SC Last administered on 09/10/16 06:07; Admin Dose 1 UNIT; Start 09/09/16 at 00:00 Assessment/Plan Additional Assessment/Plan IMP: 1. Acute Hypoxemic respiratory failure 2. Acute Decompensated HF 3. Demand Ischemia 4. Azotemia--? cardiorenal 5. s/p AICD RECS: 1. Continue diuresis 2. Afterload reduction with lisinopril 3. Dexmedetomidine gtt after midnight to help facilitate weaning and extubation 4. Hold TFs after midnight 5. CPAP/PS in am 35 min cc time TEE ABRAMS MD Sep 10, 2016 16:20
[2016-09-10] MEDS: ATORVASTATIN 40 MG TAB PO SCH (20:39)
[2016-09-11] VITALS (33 sets, daily range): BP systolic 100–139; BP diastolic 32–87; PULSE 63–106; RESP 20–34
[2016-09-11] MEDS: DEXMEDETOMIDINE HCL 200 MCG in SOD CHLORIDE 0.9% 48 ML IV SCH ×3 (00:05→09:35)
[2016-09-11] MEDS: ALBUTEROL 18 GM INHALER INH SCH ×4 (01:02→13:00)
[2016-09-11] MEDS: IPRATROPIUM (HFA) 12.9 GM INHALER INH SCH ×4 (01:02→13:00)
[2016-09-11] MEDS: INSULIN ASPART [NOVOLOG] 3 ML PEN SC SCH ×6 (01:25→21:00)
[2016-09-11] MEDS: PROPOFOL 100 ML IV SCH (04:04)
[2016-09-11] MEDS: PANTOPRAZOLE 40 MG INJ IV SCH (05:28)
[2016-09-11] MEDS: SPIRONOLACTONE 25 MG TAB NGT SCH ×2 (05:28→17:43)
[2016-09-11] MEDS: FUROSEMIDE 40 MG INJ IV SCH (05:28)
[2016-09-11 07:10] LABS: ADD SCAN DIFF NO
[2016-09-11 07:20] LABS: BASOPHILS % 0.2 % (0.0-2.0); EOSINOPHILS # 0.3 10^3/ul (0.0-0.5); EOSINOPHILS % 3.2 % (0.0-7.0); HEMATOCRIT 39.8 % (37.0-47.0); HEMOGLOBIN 12.7 g/dl (12.0-16.0); LYMPHOCYTES # 0.9 10^3/ul (0.8-2.9); LYMPHOCYTES % 11.4 % (15.0-51.0); MEAN CORPUSCULAR HEMOGLOBIN 29.7 pg (29.0-33.0); MEAN CORPUSCULAR HGB CONC 31.9 g/dl (32.0-37.0); MEAN CORPUSCULAR VOLUME 93.2 fl (82.0-101.0); MEAN PLATELET VOLUME 10.7 fl (7.4-10.4); MONOCYTE # 0.7 10^3/ul (0.3-0.9); NEUTROPHIL # 6.2 10^3/ul (1.6-7.5); NEUTROPHILS % 75.7 % (39.0-77.0); PLATELET COUNT 225 10^3/UL (140-415); RED BLOOD COUNT 4.27 10^6/ul (4.20-5.40); RED CELL DISTRIBUTION WIDTH 16.1 % (11.5-14.5); WHITE BLOOD COUNT 8.1 10^3/ul (4.8-10.8)
[2016-09-11 07:38] LABS: CALCIUM 9.3 mg/dl (8.4-10.2); CREATININE 1.2 mg/dl (0.44-1.00); POTASSIUM 3.9 mmol/L (3.5-5.1)
[2016-09-11] MEDS: LISINOPRIL 5 MG TAB PO SCH ×2 (09:15→20:29)
[2016-09-11] MEDS: ASPIRIN 81 MG TAB PO SCH (09:15)
[2016-09-11] MEDS: MUPIROCIN 2% 22 GM OINT TOP SCH ×2 (09:15→21:44)
[2016-09-11] MEDS: ENOXAPARIN 40 MG/0.4 ML SYG SC SCH (09:23)
[2016-09-11 09:30] LABS: AADO2 Arterial 80.4 mmHg (7.0-24.0); Arterial Base Excess 1.9 mmol/L (-3.0-3); Arterial COHb 0.1 % (0.0-3.0); Arterial Fraction of Oxyhgb 95.5 % (93.0-99.0); Arterial HCO3 26.1 mmol/L (22.0-26.0); Arterial MetHb 0.4 % (0.0-1.5); Arterial Total Hemglobin 13.6 g/dl (12.0-18.0); Blood Gas PS 10; MODE VENT - CPAP
--- NOTE | 2016-09-11 10:20 | PN ---
Date/Time of Note Date/Time of Note DATE: 09/11/16 TIME: 10:13 Assessment/Plan VTE Prophylaxis VTE Prophylaxis Intervention: LMWH Lines/Catheters IV Catheter Type (from Nrs): Saline Lock Urinary Cath still in place: Yes Reason Cath still needed: other (indicate) (Monitoring UOP ) Assessment/Plan Assessment/Plan 60 yo female with: 1. Acute Hypoxemic respiratory failure, likely 2ry yto pulmonary edema and CHF, ? triggered by acute cardiac event. On CPAP trial and likely to be extubated today. Diuresing and Pulmonary following for vent management, on Lasix and Aldactone Appreciate cardiac recs AICD in place and echo with EF of 25 %. 2. NSTEMI, with Cardiomyopathy EF 25%, s/p AICD. Patient noted to have occasional episodes of NSVT last week. Cardiology, Dr Kingsley following and troponins back to normal Continue current meds and also ASA, Lovenox Repleting electrolytes prn 3. Congestive Heart Failure, systolic dysfunction acute on chronic with EF of 25 % Appreciate recs from Dr Kingsley and diuresing with lower dose of Lasix and Aldactone Continue current meds. 4. Cirrhosis, unknown history , so ? etiology. Ammonia OK and liver function OK . CT abdo/perlvis with NO masses just cirrhosis and small fat containing umbilical hernia Monitor LFTs and liver function 5. ILAN vs CKD, renal function remains fairly stable while being diuresed with Lasix 40 mg IV daily+Aldactone 25 mg po bid. Renal function stable/improving so far Renal US ? mild right hydronephrosis Moraes in place, continue to monitor. 6. Hyperglycemia: On SSI, A1c 7.5. Prophylaxis: GI ppx with Protonix and on ppx dose of Lovenox now. Disposition: Possible extubation today, Pulmonary and Cardiology following. Subjective 24 Hr Interval Summary Free Text/Dictation Patient on CPAP trial today and doing well while on Precedex, likely to be extubated today Labs OK and diuresing well Exam/Review of Systems Vital Signs Vitals Vital Signs Date Time Temp Pulse Resp B/P Pulse Ox O2 Delivery O2 Flow Rate FiO2 09/11/16 08:00 69 25 116/66 98 Mechanical Ventilator 09/11/16 07:30 30 09/11/16 07:00 99.0 Intake and Output 09/10/16 09/10/16 09/11/16 15:00 23:00 07:00 Intake Total 386 ml 518 ml 192.62 ml Output Total 510 ml 305 ml 355 ml Balance -124 ml 213 ml -162.38 ml Exam Constitutional: alert, frail, other (on Vent) Respiratory: clear to auscultation, other (vent on CPAP trial and doing well ) Cardiovascular: nl pulses, regular rate and rhythm Gastrointestinal: non-tender, other (obese with umbilical hernia), soft Musculoskeletal: nl extremities to inspection, other (no edema, clubbing or cyanosis ) Extremities: normal pulses Neurological: FLOW MATCH SOFA CUTTER II-XII intact, lethargic, other (more awake ) Results Result Diagram: 09/11/16 0600 09/11/16 0600 Results 24 hrs Laboratory Tests Test 09/10/16 12:31 09/10/16 17:26 09/10/16 20:40 09/11/16 01:23 Bedside Glucose 138 170 151 141 Test 09/11/16 05:27 09/11/16 06:00 09/11/16 09:00 09/11/16 09:18 Bedside Glucose 144 161 White Blood Count 8.1 Red Blood Count 4.27 Hemoglobin 12.7 Hematocrit 39.8 Mean Corpuscular Volume 93.2 Mean Corpuscular Hemoglobin 29.7 Mean Corpuscular Hemoglobin Concent 31.9 L Red Cell Distribution Width 16.1 H Platelet Count 225 Mean Platelet Volume 10.7 H Neutrophils % 75.7 Lymphocytes % 11.4 L Monocytes % 9.0 Eosinophils % 3.2 Basophils % 0.2 Nucleated Red Blood Cells % 0.0 Neutrophils # 6.2 Lymphocytes # 0.9 Monocytes # 0.7 Eosinophils # 0.3 Basophils # 0.0 Nucleated Red Blood Cells # 0.0 Sodium Level 143 Potassium Level 3.9 Chloride Level 109 Carbon Dioxide Level 24 Anion Gap 14 Blood Urea Nitrogen 32 H Creatinine 1.20 H Glucose Level 154 Calcium Level 9.3 Blood Gas Specimen Source Blood arterial Arterial Blood Date Drawn 09/11/2016 9:17:56 AM Arterial Blood pH (Temp corrected) 7.438 Arterial Blood pCO2 (Temp correct) 39.5 Arterial Blood pO2 (Temp corrected) 87.1 Arterial Blood HCO3 26.1 H Arterial Blood Base Excess 1.9 Arterial Blood Oxygen Saturation 96.0 Antonio Test N/A Arterial Blood Gas Puncture Site LB Arterial Blood Carboxyhemoglobin 0.1 Arterial Blood Methemoglobin 0.4 Blood Gas A-a O2 Differential 80.4 H Oxyhemoglobin Percent 95.5 Total Hemoglobin 13.6 Blood Gas Temperature 37.0 Blood Gas Actual Respiration Rate 29 Blood Gas Modality VENT - CPAP FiO2 30.0 Blood Gas Low PEEP Setting 5.0 Blood Gas Pressure Support 10 Blood Gas Notified Whom K B Blood Gas Notified Time 09/11/2016 9:29:31 AM Medications Medications Current Medications Ondansetron HCl (Zofran Inj) 4 mg Q6H PRN IV NAUSEA AND/OR VOMITING; Start 09/06 at 22:30 Acetaminophen (Tylenol Supp) 650 mg Q4H PRN [place] PAIN LEVEL 1-3 OR FEVER Last administered on 09/09/16 17:50; Admin Dose 650 MG; Start 09/06/16 at 22:30 Hydromorphone HCl (Dilaudid) 0.5 mg Q4H PRN IV PAIN LEVEL 7-10; Start 09/06/16 at 22:30 Pantoprazole (Protonix Iv) 40 mg DAILY@06 IV Last administered on 09/11/16 05: 28; Admin Dose 40 MG; Start 09/07/16 at 06:00 Aspirin (Aspirin) 81 mg DAILY PO Last administered on 09/11/16 09:15; Admin Dose 81 MG; Start 09/06/16 at 22:30 Atorvastatin Calcium (Lipitor) 40 mg DAILY@21 PO Last administered on 20:39; Admin Dose 40 MG; Start 09/07/16 at 00:45 Miscellaneous Information 1 ea NOTE XX ; Start 09/07/16 at 00:30 Glucose (Glutose) 15 gm Q15M PRN PO DECREASED GLUCOSE; Start 09/07/16 at 00:30 Glucose (Glutose) 22.5 gm Q15M PRN PO DECREASED GLUCOSE; Start 09/07/16 at 00:30 Dextrose (D50w Syringe) 25 ml Q15M PRN IV DECREASED GLUCOSE; Start 09/07/16 at 00:30 Dextrose (D50w Syringe) 50 ml Q15M PRN IV DECREASED GLUCOSE; Start 09/07/16 at 00:30 Glucagon (Glucagen) 1 mg Q15M PRN IM DECREASED GLUCOSE; Start 09/07/16 at 00:30 Glucose 15 gm 15 gm Q15M PRN BUCCAL DECREASED GLUCOSE; Start 09/07/16 at 00:30 Propofol (Diprivan) 100 ml @ 3 mls/hr Q12H IV Last administered on 09/11/16 04 :04; Admin Dose 12 MLS/HR; Start 09/07/16 at 02:30 Lisinopril (Zestril) 2.5 mg BID PO Last administered on 09/11/16 09:15; Admin Dose 2.5 MG; Start 09/07/16 at 21:00 Furosemide (Lasix) 40 mg DAILY@06 IV Last administered on 09/11/16 05:28; Admin Dose 40 MG; Start 09/09/16 at 06:00 Enoxaparin Sodium (Lovenox) 40 mg DAILY SC Last administered on 09/11/16 09:23 ; Admin Dose 40 MG; Start 09/09/16 at 09:00 Mupirocin 1 applic 1 applic BID TOP Last administered on 09/11/16 09:15; Admin Dose 1 APPLIC; Start 09/08/16 at 14:00; Stop 09/21/16 at 21:01 Dexmedetomidine HCl/Sodium Chloride (Precedex/NS) 50 ml @ 13.28 mls/ hr TITRATE IV Last administered on 09/11/16 09:35; Admin Dose 13.28 MLS/HR; Start 09/11/16 at 00:00; Stop 09/11/16 at 12:00 Insulin Aspart (Novolog Insulin Pen) NOVOLOG *MILD* ALGORI... Q4 SC Last administered on 09/11/16 09:25; Admin Dose 1 UNIT; Start 09/10/16 at 21:00 MACKENZIE ESCOBAR Sep 11, 2016 10:20
--- NOTE | 2016-09-11 10:29 | CONS ---
Date/Time of Note Date/Time of Note DATE: 09/11/16 TIME: 10:26 Assessment/Plan Assessment/Plan Additional Assessment/Plan Patient currently on CPAP, 30% FiO2 pressure support of 10. ABG was reviewed done a short while ago which is essentially within normal limits. Assessment and recommendations; 1. Patient admitted for respiratory failure due to flash pulmonary edema from underlying cardiomyopathy. Clinically and radiologically markedly improved. 2. History of hypertension. 3. Mild renal insufficiency. Likely exacerbated by diuretic use. However serum creatinine is improving. Continue current treatment. Continue gentle diuresis. Extubated. Patient may require BiPAP postextubation. Obtain follow-up chest x-ray 24 hours. Consultation Date/Type/Reason Admit Date/Time Sep 06, 2016 at 20:38 Initial Consult Date 09/07/16 Type of Consultation: Pulm/CCM 24 HR Interval Summary Free Text/Dictation Patient's condition is critical but stable patient currently on CPAP for the last almost 3 hours and is exhibiting excellent weaning parameters so far. Patient remains completely awake alert. Denies any shortness breath, chest pain. Not much secretions coming through endotracheal tube. Patient has remained hemodynamically stable. General exam; elderly lady, orally intubated, currently in no distress. Awake and alert. Exam/Review of Systems Vital Signs Vitals Vital Signs Date Time Temp Pulse Resp B/P Pulse Ox O2 Delivery O2 Flow Rate FiO2 09/11/16 08:00 69 25 116/66 98 Mechanical Ventilator 09/11/16 07:30 30 09/11/16 07:00 99.0 Intake and Output 09/10/16 09/10/16 09/11/16 15:00 23:00 07:00 Intake Total 386 ml 518 ml 192.62 ml Output Total 510 ml 305 ml 355 ml Balance -124 ml 213 ml -162.38 ml Exam HEENT exam is; supple neck, positive JVD. No lymphadenopathy. Midline trachea. No thyromegaly. Orally intubated. Pupils are midsize and reactive to light. Patient has fair dentition. Neck Chest examination; clear to auscultation. S1-S2 audible, no murmurs. Regular rhythm. Abdomen examination; soft, protuberant. Nontender. No organomegaly. Bowel sounds audible. Extremity examination; no peripheral edema. Pulses 1+ bilaterally. MARKETER examination; no focal deficit. Results Result Diagram: 09/11/16 0600 09/11/16 0600 Results 24 hrs Laboratory Tests Test 09/10/16 12:31 09/10/16 17:26 09/10/16 20:40 09/11/16 01:23 Bedside Glucose 138 170 151 141 Test 09/11/16 05:27 09/11/16 06:00 09/11/16 09:00 09/11/16 09:18 Bedside Glucose 144 161 White Blood Count 8.1 Red Blood Count 4.27 Hemoglobin 12.7 Hematocrit 39.8 Mean Corpuscular Volume 93.2 Mean Corpuscular Hemoglobin 29.7 Mean Corpuscular Hemoglobin Concent 31.9 L Red Cell Distribution Width 16.1 H Platelet Count 225 Mean Platelet Volume 10.7 H Neutrophils % 75.7 Lymphocytes % 11.4 L Monocytes % 9.0 Eosinophils % 3.2 Basophils % 0.2 Nucleated Red Blood Cells % 0.0 Neutrophils # 6.2 Lymphocytes # 0.9 Monocytes # 0.7 Eosinophils # 0.3 Basophils # 0.0 Nucleated Red Blood Cells # 0.0 Sodium Level 143 Potassium Level 3.9 Chloride Level 109 Carbon Dioxide Level 24 Anion Gap 14 Blood Urea Nitrogen 32 H Creatinine 1.20 H Glucose Level 154 Calcium Level 9.3 Blood Gas Specimen Source Blood arterial Arterial Blood Date Drawn 09/11/2016 9:17:56 AM Arterial Blood pH (Temp corrected) 7.438 Arterial Blood pCO2 (Temp correct) 39.5 Arterial Blood pO2 (Temp corrected) 87.1 Arterial Blood HCO3 26.1 H Arterial Blood Base Excess 1.9 Arterial Blood Oxygen Saturation 96.0 Antonio Test N/A Arterial Blood Gas Puncture Site LB Arterial Blood Carboxyhemoglobin 0.1 Arterial Blood Methemoglobin 0.4 Blood Gas A-a O2 Differential 80.4 H Oxyhemoglobin Percent 95.5 Total Hemoglobin 13.6 Blood Gas Temperature 37.0 Blood Gas Actual Respiration Rate 29 Blood Gas Modality VENT - CPAP FiO2 30.0 Blood Gas Low PEEP Setting 5.0 Blood Gas Pressure Support 10 Blood Gas Notified Whom K B Blood Gas Notified Time 09/11/2016 9:29:31 AM Medications Medications Current Medications Ondansetron HCl (Zofran Inj) 4 mg Q6H PRN IV NAUSEA AND/OR VOMITING; Start 09/06 at 22:30 Acetaminophen (Tylenol Supp) 650 mg Q4H PRN [place] PAIN LEVEL 1-3 OR FEVER Last administered on 09/09/16 17:50; Admin Dose 650 MG; Start 09/06/16 at 22:30 Hydromorphone HCl (Dilaudid) 0.5 mg Q4H PRN IV PAIN LEVEL 7-10; Start 09/06/16 at 22:30 Pantoprazole (Protonix Iv) 40 mg DAILY@06 IV Last administered on 09/11/16 05: 28; Admin Dose 40 MG; Start 09/07/16 at 06:00 Aspirin (Aspirin) 81 mg DAILY PO Last administered on 09/11/16 09:15; Admin Dose 81 MG; Start 09/06/16 at 22:30 Atorvastatin Calcium (Lipitor) 40 mg DAILY@21 PO Last administered on 20:39; Admin Dose 40 MG; Start 09/07/16 at 00:45 Miscellaneous Information 1 ea NOTE XX ; Start 09/07/16 at 00:30 Glucose (Glutose) 15 gm Q15M PRN PO DECREASED GLUCOSE; Start 09/07/16 at 00:30 Glucose (Glutose) 22.5 gm Q15M PRN PO DECREASED GLUCOSE; Start 09/07/16 at 00:30 Dextrose (D50w Syringe) 25 ml Q15M PRN IV DECREASED GLUCOSE; Start 09/07/16 at 00:30 Dextrose (D50w Syringe) 50 ml Q15M PRN IV DECREASED GLUCOSE; Start 09/07/16 at 00:30 Glucagon (Glucagen) 1 mg Q15M PRN IM DECREASED GLUCOSE; Start 09/07/16 at 00:30 Glucose 15 gm 15 gm Q15M PRN BUCCAL DECREASED GLUCOSE; Start 09/07/16 at 00:30 Propofol (Diprivan) 100 ml @ 3 mls/hr Q12H IV Last administered on 09/11/16 04 :04; Admin Dose 12 MLS/HR; Start 09/07/16 at 02:30 Lisinopril (Zestril) 2.5 mg BID PO Last administered on 09/11/16 09:15; Admin Dose 2.5 MG; Start 09/07/16 at 21:00 Furosemide (Lasix) 40 mg DAILY@06 IV Last administered on 09/11/16 05:28; Admin Dose 40 MG; Start 09/09/16 at 06:00 Enoxaparin Sodium (Lovenox) 40 mg DAILY SC Last administered on 09/11/16 09:23 ; Admin Dose 40 MG; Start 09/09/16 at 09:00 Mupirocin 1 applic 1 applic BID TOP Last administered on 09/11/16 09:15; Admin Dose 1 APPLIC; Start 09/08/16 at 14:00; Stop 09/21/16 at 21:01 Dexmedetomidine HCl/Sodium Chloride (Precedex/NS) 50 ml @ 13.28 mls/ hr TITRATE IV Last administered on 09/11/16 09:35; Admin Dose 13.28 MLS/HR; Start 09/11/16 at 00:00; Stop 09/11/16 at 12:00 Insulin Aspart (Novolog Insulin Pen) NOVOLOG *MILD* ALGORI... Q4 SC Last administered on 09/11/16 09:25; Admin Dose 1 UNIT; Start 09/10/16 at 21:00 JEANIE PINO Sep 11, 2016 10:29
[2016-09-11] MEDS ORDERED: RACEPINEPHRINE 2.25%(NEB) 0.5 ML AMP ONE (11:32)
[2016-09-11] MEDS ORDERED: FUROSEMIDE 40 MG INJ IV ONE (12:30)
[2016-09-11 13:48] LABS: AADO2 Arterial 73.2 mmHg (7.0-24.0); Allen Test ACCEPTAB; Arterial Base Excess -1.2 mmol/L (-3.0-3); Arterial COHb 0.1 % (0.0-3.0); Arterial Fraction of Oxyhgb 96.3 % (93.0-99.0); Arterial HCO3 23.1 mmol/L (22.0-26.0); Arterial MetHb 0.4 % (0.0-1.5); Arterial Total Hemglobin 13.8 g/dl (12.0-18.0); MODE MASK - BIPAP
--- NOTE | 2016-09-11 14:31 | CONS ---
Date/Time of Note Date/Time of Note DATE: 09/11/16 TIME: 14:29 Assessment/Plan Assessment/Plan Additional Assessment/Plan Acute decompensated systolic congestive heart failure Severe cardiomyopathy with ejection fraction 25% Respiratory failure status post extubation Mildly elevated troponin History of hypertension Diabetes History of AICD -Continue diuretics as blood pressure and renal function permits. Blood pressure trend remains stable. Continue LEA inhibitor. Would start low-dose beta-enma as blood pressure and heart rate permits. Consultation Date/Type/Reason Admit Date/Time Sep 06, 2016 at 20:38 Initial Consult Date 09/07/16 Type of Consultation: cv 24 HR Interval Summary Free Text/Dictation Patient extubated this morning. Noted to have stridor afterwards requiring epinephrine and BiPAP. Currently feeling better. Denies chest pain Exam/Review of Systems Vital Signs Vitals Vital Signs Date Time Temp Pulse Resp B/P Pulse Ox O2 Delivery O2 Flow Rate FiO2 09/11/16 14:22 74 99 30 09/11/16 12:00 98.8 34 136/81 Mechanical Ventilator Intake and Output 09/10/16 09/10/16 09/11/16 15:00 23:00 07:00 Intake Total 386 ml 518 ml 192.62 ml Output Total 510 ml 305 ml 355 ml Balance -124 ml 213 ml -162.38 ml Exam Following commands, on BiPAP Constitutional: alert, oriented Head: normocephalic Respiratory: other (Coarse breath sounds bilaterally, no wheezing) Cardiovascular: other (S1-S2 heard), regular rate and rhythm Gastrointestinal: bowel sounds, non-tender, other (No guarding), soft Extremities: edema (Trace) Results Result Diagram: 09/11/16 0600 09/11/16 0600 Results 24 hrs Laboratory Tests Test 09/10/16 17:26 09/10/16 20:40 09/11/16 01:23 09/11/16 05:27 Bedside Glucose 170 151 141 144 Test 09/11/16 06:00 09/11/16 09:00 09/11/16 09:18 09/11/16 13:02 White Blood Count 8.1 Red Blood Count 4.27 Hemoglobin 12.7 Hematocrit 39.8 Mean Corpuscular Volume 93.2 Mean Corpuscular Hemoglobin 29.7 Mean Corpuscular Hemoglobin Concent 31.9 L Red Cell Distribution Width 16.1 H Platelet Count 225 Mean Platelet Volume 10.7 H Neutrophils % 75.7 Lymphocytes % 11.4 L Monocytes % 9.0 Eosinophils % 3.2 Basophils % 0.2 Nucleated Red Blood Cells % 0.0 Neutrophils # 6.2 Lymphocytes # 0.9 Monocytes # 0.7 Eosinophils # 0.3 Basophils # 0.0 Nucleated Red Blood Cells # 0.0 Sodium Level 143 Potassium Level 3.9 Chloride Level 109 Carbon Dioxide Level 24 Anion Gap 14 Blood Urea Nitrogen 32 H Creatinine 1.20 H Glucose Level 154 Calcium Level 9.3 Blood Gas Specimen Source Blood arterial Arterial Blood Date Drawn 09/11/2016 9:17:56 AM Arterial Blood pH (Temp corrected) 7.438 Arterial Blood pCO2 (Temp correct) 39.5 Arterial Blood pO2 (Temp corrected) 87.1 Arterial Blood HCO3 26.1 H Arterial Blood Base Excess 1.9 Arterial Blood Oxygen Saturation 96.0 Antonio Test N/A Arterial Blood Gas Puncture Site LB Arterial Blood Carboxyhemoglobin 0.1 Arterial Blood Methemoglobin 0.4 Blood Gas A-a O2 Differential 80.4 H Oxyhemoglobin Percent 95.5 Total Hemoglobin 13.6 Blood Gas Temperature 37.0 Blood Gas Actual Respiration Rate 29 Blood Gas Modality VENT - CPAP FiO2 30.0 Blood Gas Low PEEP Setting 5.0 Blood Gas Pressure Support 10 Blood Gas Notified Whom K B Blood Gas Notified Time 09/11/2016 9:29:31 AM Bedside Glucose 161 139 Test 09/11/16 13:30 Blood Gas Specimen Source Blood arterial Arterial Blood Date Drawn 09/11/2016 1:40:00 PM Arterial Blood pH (Temp corrected) 7.409 Arterial Blood pCO2 (Temp correct) 37.3 Arterial Blood pO2 (Temp corrected) 96.9 Arterial Blood HCO3 23.1 Arterial Blood Base Excess -1.2 Arterial Blood Oxygen Saturation 96.8 Antonio Test ACCEPTAB Arterial Blood Gas Puncture Site Left Radial Arterial Blood Carboxyhemoglobin 0.1 Arterial Blood Methemoglobin 0.4 Blood Gas A-a O2 Differential 73.2 H Oxyhemoglobin Percent 96.3 Total Hemoglobin 13.8 Blood Gas Temperature 37.0 Blood Gas Respiration Rate 16.0 Blood Gas Actual Respiration Rate 28 Blood Gas Modality MASK - BIPAP FiO2 30.0 Blood Gas IPAP/EPAP Ratio 12/4 Blood Gas Notified Whom JLD Blood Gas Notified Time 09/11/2016 1:48:43 PM Medications Medications Current Medications Ondansetron HCl (Zofran Inj) 4 mg Q6H PRN IV NAUSEA AND/OR VOMITING; Start 09/06 at 22:30 Acetaminophen (Tylenol Supp) 650 mg Q4H PRN [place] PAIN LEVEL 1-3 OR FEVER Last administered on 09/09/16 17:50; Admin Dose 650 MG; Start 09/06/16 at 22:30 Hydromorphone HCl (Dilaudid) 0.5 mg Q4H PRN IV PAIN LEVEL 7-10; Start 09/06/16 at 22:30 Pantoprazole (Protonix Iv) 40 mg DAILY@06 IV Last administered on 09/11/16 05: 28; Admin Dose 40 MG; Start 09/07/16 at 06:00 Aspirin (Aspirin) 81 mg DAILY PO Last administered on 09/11/16 09:15; Admin Dose 81 MG; Start 09/06/16 at 22:30 Atorvastatin Calcium (Lipitor) 40 mg DAILY@21 PO Last administered on 20:39; Admin Dose 40 MG; Start 09/07/16 at 00:45 Miscellaneous Information 1 ea NOTE XX ; Start 09/07/16 at 00:30 Glucose (Glutose) 15 gm Q15M PRN PO DECREASED GLUCOSE; Start 09/07/16 at 00:30 Glucose (Glutose) 22.5 gm Q15M PRN PO DECREASED GLUCOSE; Start 09/07/16 at 00:30 Dextrose (D50w Syringe) 25 ml Q15M PRN IV DECREASED GLUCOSE; Start 09/07/16 at 00:30 Dextrose (D50w Syringe) 50 ml Q15M PRN IV DECREASED GLUCOSE; Start 09/07/16 at 00:30 Glucagon (Glucagen) 1 mg Q15M PRN IM DECREASED GLUCOSE; Start 09/07/16 at 00:30 Glucose 15 gm 15 gm Q15M PRN BUCCAL DECREASED GLUCOSE; Start 09/07/16 at 00:30 Propofol (Diprivan) 100 ml @ 3 mls/hr Q12H IV Last administered on 09/11/16 04 :04; Admin Dose 12 MLS/HR; Start 09/07/16 at 02:30 Lisinopril (Zestril) 2.5 mg BID PO Last administered on 09/11/16 09:15; Admin Dose 2.5 MG; Start 09/07/16 at 21:00 Furosemide (Lasix) 40 mg DAILY@06 IV Last administered on 09/11/16 05:28; Admin Dose 40 MG; Start 09/09/16 at 06:00 Enoxaparin Sodium (Lovenox) 40 mg DAILY SC Last administered on 09/11/16 09:23 ; Admin Dose 40 MG; Start 09/09/16 at 09:00 Mupirocin (Bactroban) 1 applic BID TOP Last administered on 09/11/16 09:15; Admin Dose 1 APPLIC; Start 09/08/16 at 14:00; Stop 09/21/16 at 21:01 Insulin Aspart (Novolog Insulin Pen) NOVOLOG *MILD* ALGORI... Q4 SC Last administered on 09/11/16 09:25; Admin Dose 1 UNIT; Start 09/10/16 at 21:00 Ricardo Kingsley DO Sep 11, 2016 14:31
[2016-09-11] MEDS: ATORVASTATIN 40 MG TAB PO SCH (20:30)
[2016-09-12] VITALS (28 sets, daily range): BP systolic 128–174; BP diastolic 61–109; PULSE 79–99; RESP 15–31
[2016-09-12] MEDS: INSULIN ASPART [NOVOLOG] 3 ML PEN SC SCH ×6 (01:00→20:43)
[2016-09-12] MEDS: SPIRONOLACTONE 25 MG TAB NGT SCH ×2 (05:35→18:42)
[2016-09-12] MEDS: HYDROmorphONE 1 MG/ML SYG IV PRN ×3 (05:35→20:47)
[2016-09-12] MEDS: FUROSEMIDE 40 MG INJ IV SCH (05:35)
[2016-09-12] MEDS: PANTOPRAZOLE 40 MG INJ IV SCH (05:35)
[2016-09-12 06:41] LABS: ADD SCAN DIFF NO
[2016-09-12 06:49] LABS: BASOPHILS % 0.5 % (0.0-2.0); EOSINOPHILS # 0.3 10^3/ul (0.0-0.5); EOSINOPHILS % 2.8 % (0.0-7.0); HEMATOCRIT 40.2 % (37.0-47.0); HEMOGLOBIN 12.1 g/dl (12.0-16.0); LYMPHOCYTES # 1.2 10^3/ul (0.8-2.9); LYMPHOCYTES % 13.9 % (15.0-51.0); MEAN CORPUSCULAR HGB CONC 30.1 g/dl (32.0-37.0); MEAN CORPUSCULAR VOLUME 96.4 fl (82.0-101.0); MEAN PLATELET VOLUME 10.9 fl (7.4-10.4); MONOCYTES % 10.8 % (0.0-11.0); NEUTROPHIL # 6.4 10^3/ul (1.6-7.5); NEUTROPHILS % 71.8 % (39.0-77.0); PLATELET COUNT 256 10^3/UL (140-415); RED BLOOD COUNT 4.17 10^6/ul (4.20-5.40); RED CELL DISTRIBUTION WIDTH 16.2 % (11.5-14.5); WHITE BLOOD COUNT 8.9 10^3/ul (4.8-10.8)
[2016-09-12 07:21] LABS: MAGNESIUM 2.6 mg/dl (1.7-2.5); PHOSPHORUS 4.8 mg/dl (2.5-4.9)
[2016-09-12 07:24] LABS: ALBUMIN 4.3 g/dl (3.3-4.9); ALBUMIN/GLOBULIN RATIO 0.95; BILIRUBIN,INDIRECT 0.5 mg/dl (0-1.1); BILIRUBIN,TOTAL 0.5 mg/dl (0.2-1.3); CALCIUM 9.8 mg/dl (8.4-10.2); CREATININE 1.52 mg/dl (0.44-1.00); TOTAL PROTEIN 8.8 g/dl (6.1-8.1)
[2016-09-12] MEDS: LISINOPRIL 5 MG TAB PO SCH (09:00)
[2016-09-12] MEDS: ASPIRIN 81 MG TAB PO SCH (09:00)
[2016-09-12] MEDS: ENOXAPARIN 40 MG/0.4 ML SYG SC SCH (09:00)
--- NOTE | 2016-09-12 09:01 | RADRPT ---
PROCEDURE: XR Chest. CLINICAL INDICATION: CHF. TECHNIQUE: Single frontal view of the chest was obtained. COMPARISON: Chest x-ray 09/10/2016. FINDINGS: The soft tissues are generous. A single channel AICD device is identified over the upper left chest wall with the distal electrode projecting at the level of the right ventricle.. The bony elements are normal. The heart is enlarged. The cardiomediastinal silhouette and hilar structures are chiki l. The pulmonary vasculature is increased. There is a left-sided aorta. There are perihilar and bas ilar infiltrates with atelectasis in the right lower lobe. Small pleural effusions are suspected. IMPRESSION: 1. Interval removal of the endotracheal tube and NG tube since the prior study. 2. Congestive heart failure with interstitial pulmonary edema and bilateral pleural effusions. 3. Cardiomegaly. 4. Right lower lobe atelectasis. RPTAT:AAJJ Physician Marcelino Date Time Electronically viewed and signed by Physician Marcelino on 09/12/2016 09:01 CHUCKY/
--- NOTE | 2016-09-12 09:26 | PN ---
Date/Time of Note Date/Time of Note DATE: 09/12/16 TIME: 08:56 Assessment/Plan VTE Prophylaxis VTE Prophylaxis Intervention: LMWH Lines/Catheters IV Catheter Type (from Nrs): Saline Lock Urinary Cath still in place: Yes Reason Cath still needed: other (indicate) (monitor UOP ) Assessment/Plan Assessment/Plan 60 yo female with: 1. Acute Hypoxemic respiratory failure, likely 2ry to pulmonary edema and CHF, ? triggered by acute cardiac event. On BiPAP this AM post extubation yesterday afternoon Diuresing and Pulmonary following for vent management, on Lasix and Aldactone, lower dose, CXR still with pulmonary edema Appreciate cardiac recs AICD in place and echo with EF of 25 %. 2. NSTEMI, with Cardiomyopathy EF 25%, s/p AICD. Patient noted to have occasional episodes of NSVT last week. Cardiology, Dr Kingsley following and troponins back to normal. Continue current meds and also ASA, Lovenox Repleting electrolytes prn 3. Congestive Heart Failure, systolic dysfunction acute on chronic with EF of 25 %. Still with pulmonary edema Appreciate recs from Dr Kingsley and diuresing with lower dose of Lasix and Aldactone Continue current meds. 4. Cirrhosis, unknown history , so ? etiology. Ammonia OK and liver function OK . CT abdo/perlvis with NO masses just cirrhosis and small fat containing umbilical hernia Monitor LFTs and liver function, stable so far 5. ILAN vs CKD, renal function remains fairly stable while being diuresed with Lasix 20 mg IV daily+Aldactone 25 mg po bid. Pre renal azotemia, hypernatremia, creat up a little Renal US ? mild right hydronephrosis Moraes in place, continue to monitor. 6. Hyperglycemia: On SSI, A1c 7.5. 7. Headaches and tongue deviation this AM while being evaluated by speech, also with stridor .. CT head pending Prophylaxis: GI ppx with Protonix and on ppx dose of Lovenox now. Disposition: On BiPAP currently, CT head pending and MRI carlie if needed Pulmonary and Cardiology following. Subjective 24 Hr Interval Summary Free Text/Dictation Patient remains stable but had to go back on BiPAP overnight Patient complained of Headache last night, ? tongue deviation this AM and also noted high blood pressure Patient has no other neurological deficit noted No po meds given today as patient failed swallow eval and on BiPAP currently Exam/Review of Systems Vital Signs Vitals Vital Signs Date Time Temp Pulse Resp B/P Pulse Ox O2 Delivery O2 Flow Rate FiO2 09/12/16 06:00 99 29 166/89 99 Nasal Cannula 2.0 09/12/16 04:00 98.9 09/11/16 21:55 30 Intake and Output 09/11/16 09/11/16 09/12/16 15:00 23:00 07:00 Intake Total 119.66 ml 30 ml Output Total 380 ml 410 ml 300 ml Balance -260.34 ml -380 ml -300 ml Exam Constitutional: alert, frail, oriented (x2) Head: atraumatic, normocephalic Eyes: EOMI, nl conjunctiva ENMT: other (unable to examin mouth as patient on BiPAP) Respiratory: diminished breath sounds (bases and patient ealier with stridor and wheezing per RN ), other (on BiPAP) Cardiovascular: nl pulses, regular rate and rhythm Gastrointestinal: other (umbilical hernia ), soft Musculoskeletal: nl extremities to inspection Extremities: normal pulses, other (no edema, clubbing or cyanosis ) Neurological: BOTTLER II-XII intact, nl mental status, other (on BiPAP so limited exam ) Results Result Diagram: 09/12/16 0525 09/12/16 0525 Results 24 hrs Laboratory Tests Test 09/11/16 09:00 09/11/16 09:18 09/11/16 13:02 09/11/16 13:30 Blood Gas Specimen Source Blood arterial Blood arterial Arterial Blood Date Drawn 09/11/2016 9:17:56 AM 09/11/2016 1:40:00 PM Arterial Blood pH (Temp corrected) 7.438 7.409 Arterial Blood pCO2 (Temp correct) 39.5 37.3 Arterial Blood pO2 (Temp corrected) 87.1 96.9 Arterial Blood HCO3 26.1 H 23.1 Arterial Blood Base Excess 1.9 -1.2 Arterial Blood Oxygen Saturation 96.0 96.8 Antonio Test N/A ACCEPTAB Arterial Blood Gas Puncture Site LB Left Radial Arterial Blood Carboxyhemoglobin 0.1 0.1 Arterial Blood Methemoglobin 0.4 0.4 Blood Gas A-a O2 Differential 80.4 H 73.2 H Oxyhemoglobin Percent 95.5 96.3 Total Hemoglobin 13.6 13.8 Blood Gas Temperature 37.0 37.0 Blood Gas Actual Respiration Rate 29 28 Blood Gas Modality VENT - CPAP MASK - BIPAP FiO2 30.0 30.0 Blood Gas Low PEEP Setting 5.0 Blood Gas Pressure Support 10 Blood Gas Notified Whom Guillaume DAIGLE Blood Gas Notified Time 09/11/2016 9:29:31 AM 09/11/2016 1:48:43 PM Bedside Glucose 161 139 Blood Gas Respiration Rate 16.0 Blood Gas IPAP/EPAP Ratio 12/ Test 09/11/16 17:35 09/11/16 21:44 09/12/16 01:39 09/12/16 05:25 Bedside Glucose 107 86 86 White Blood Count 8.9 Red Blood Count 4.17 L Hemoglobin 12.1 Hematocrit 40.2 Mean Corpuscular Volume 96.4 Mean Corpuscular Hemoglobin 29.0 Mean Corpuscular Hemoglobin Concent 30.1 L Red Cell Distribution Width 16.2 H Platelet Count 256 Mean Platelet Volume 10.9 H Neutrophils % 71.8 Lymphocytes % 13.9 L Monocytes % 10.8 Eosinophils % 2.8 Basophils % 0.5 Nucleated Red Blood Cells % 0.0 Neutrophils # 6.4 Lymphocytes # 1.2 Monocytes # 1.0 H Eosinophils # 0.3 Basophils # 0.0 Nucleated Red Blood Cells # 0.0 Sodium Level 150 H Potassium Level 4.0 Chloride Level 111 H Carbon Dioxide Level 27 Anion Gap 16 Blood Urea Nitrogen 40 H Creatinine 1.52 H Glucose Level 91 # Calcium Level 9.8 Phosphorus Level 4.8 Magnesium Level 2.6 H Total Bilirubin 0.5 Direct Bilirubin 0.00 Indirect Bilirubin 0.5 Aspartate Amino Transf (AST/SGOT) 26 Alanine Aminotransferase (ALT/SGPT) 28 Alkaline Phosphatase 253 H Total Protein 8.8 H Albumin 4.3 Globulin 4.50 H Albumin/Globulin Ratio 0.95 Test 09/12/16 05:27 Bedside Glucose 93 Medications Medications Current Medications Ondansetron HCl (Zofran Inj) 4 mg Q6H PRN IV NAUSEA AND/OR VOMITING Last administered on 09/11/16 16:49; Admin Dose 4 MG; Start 09/06/16 at 22:30 Acetaminophen (Tylenol Supp) 650 mg Q4H PRN [place] PAIN LEVEL 1-3 OR FEVER Last administered on 09/09/16 17:50; Admin Dose 650 MG; Start 09/06/16 at 22:30 Hydromorphone HCl (Dilaudid) 0.5 mg Q4H PRN IV PAIN LEVEL 7-10 Last administered on 09/12/16 05:35; Admin Dose 0.5 MG; Start 09/06/16 at 22:30 Pantoprazole (Protonix Iv) 40 mg DAILY@06 IV Last administered on 09/12/16 05: 35; Admin Dose 40 MG; Start 09/07/16 at 06:00 Aspirin (Aspirin) 81 mg DAILY PO Last administered on 09/11/16 09:15; Admin Dose 81 MG; Start 09/06/16 at 22:30 Atorvastatin Calcium (Lipitor) 40 mg DAILY@21 PO Last administered on 20:39; Admin Dose 40 MG; Start 09/07/16 at 00:45 Miscellaneous Information 1 ea NOTE XX ; Start 09/07/16 at 00:30 Glucose (Glutose) 15 gm Q15M PRN PO DECREASED GLUCOSE; Start 09/07/16 at 00:30 Glucose (Glutose) 22.5 gm Q15M PRN PO DECREASED GLUCOSE; Start 09/07/16 at 00:30 Dextrose (D50w Syringe) 25 ml Q15M PRN IV DECREASED GLUCOSE; Start 09/07/16 at 00:30 Dextrose (D50w Syringe) 50 ml Q15M PRN IV DECREASED GLUCOSE; Start 09/07/16 at 00:30 Glucagon (Glucagen) 1 mg Q15M PRN IM DECREASED GLUCOSE; Start 09/07/16 at 00:30 Glucose 15 gm 15 gm Q15M PRN BUCCAL DECREASED GLUCOSE; Start 09/07/16 at 00:30 Propofol (Diprivan) 100 ml @ 3 mls/hr Q12H IV Last administered on 09/11/16 04 :04; Admin Dose 12 MLS/HR; Start 09/07/16 at 02:30 Lisinopril (Zestril) 2.5 mg BID PO Last administered on 09/11/16 09:15; Admin Dose 2.5 MG; Start 09/07/16 at 21:00 Furosemide (Lasix) 40 mg DAILY@06 IV Last administered on 09/12/16 05:35; Admin Dose 40 MG; Start 09/09/16 at 06:00 Enoxaparin Sodium (Lovenox) 40 mg DAILY SC Last administered on 09/11/16 09:23 ; Admin Dose 40 MG; Start 09/09/16 at 09:00 Mupirocin (Bactroban) 1 applic BID TOP Last administered on 09/11/16 21:44; Admin Dose 1 APPLIC; Start 09/08/16 at 14:00; Stop 09/21/16 at 21:01 Insulin Aspart (Novolog Insulin Pen) NOVOLOG *MILD* ALGORI... Q4 SC Last administered on 09/11/16 09:25; Admin Dose 1 UNIT; Start 09/10/16 at 21:00 Carvedilol (Coreg) 3.125 mg BID PO ; Start 09/11/16 at 21:00 Procedures Procedures PROCEDURE: XR Chest. CLINICAL INDICATION: CHF. TECHNIQUE: Single frontal view of the chest was obtained. COMPARISON: Chest x-ray 09/10/2016. FINDINGS: The soft tissues are generous. A single channel AICD device is identified over the upper left chest wall with the distal electrode projecting at the level of the right ventricle.. The bony elements are normal. The heart is enlarged. The cardiomediastinal silhouette and hilar structures are normal. The pulmonary vasculature is increased. There is a left-sided aorta. There are perihilar and basilar infiltrates with atelectasis in the right lower lobe. Small pleural effusions are suspected. IMPRESSION: 1. Interval removal of the endotracheal tube and NG tube since the prior study. 2. Congestive heart failure with interstitial pulmonary edema and bilateral pleural effusions. 3. Cardiomegaly. 4. Right lower lobe atelectasis. MACKENZIE ESCOBAR Sep 12, 2016 09:09
[2016-09-12] MEDS ORDERED: ENALAPRILAT 1.25 MG INJ IV PRN (09:30)
[2016-09-12] MEDS ORDERED: ALBUTEROL/IPRATROPIUM (NEB) 3 ML AMP HHN PRN (09:30)
[2016-09-12] MEDS: ALBUTEROL/IPRATROPIUM (NEB) 3 ML AMP HHN SCH ×3 (09:49→23:16)
--- NOTE | 2016-09-12 10:49 | RADRPT ---
PROCEDURE: CT Brain without contrast. CLINICAL INDICATION: Headaches. Neurologic deficit TECHNIQUE: A CT of the brain was performed on multidetector high-resolution CT scanner utilizing a xial sections from the skull base through the vertex without contrast. One or more of the following dose reduction techniques were used: Automated exposure control, Adjustment of the mA and/or kV acc ording to patient size, and/or use of iterative reconstruction technique. DOSE: CTDI = 44 mGy and the DLP = 630 mGy-cm. COMPARISON: None available FINDINGS: Motion degraded exam. Cortical hypoattenuation of the right frontal opercular region is age indeterminate. No acute intracranial hemorrhage, significant mass effect or midline shift. The ridley-white different iation is otherwise grossly preserved. The ventricles are normal in size for age. Partially opacified sphenoid sinus bilaterally with layer ing fluid. IMPRESSION: Cortical hypoattenuation of the right frontal opercular region is age indeterminate but probably rep resents a subacute to chronic infarct. If warranted, consider MRI for further evaluation. No acute hemorrhage or significant mass effect. Partially opacified sphenoid sinus bilaterally with layering fluid. A call report was made to MARY ANN SPENCER at 09/12/2016 10:48:38 AM. RPTAT: AA .Franki Cruz MD, Date Time Electronically viewed and signed by .Franki Cruz MD, MD on 09/12/2016 10:48 .T/
[2016-09-12] MEDS: MUPIROCIN 2% 22 GM OINT TOP SCH ×2 (11:00→20:35)
--- NOTE | 2016-09-12 11:48 | CONS ---
Date/Time of Note Date/Time of Note DATE: 09/12/16 TIME: 11:45 Assessment/Plan Assessment/Plan Additional Assessment/Plan Chest x-ray was reviewed from today which is showing increased pulmonary edema. CT of the head is unremarkable. Assessment recommendations; 1. Patient admitted for respiratory failure due to flash pulmonary edema from underlying cardiomyopathy possibly exacerbated by hypertension. 2. History of cardiac arrhythmia, status post pacemaker placement in the past. 3. Hypertension. 4. Mild increase in serum creatinine. Continue current treatment. Continue BiPAP as needed. Monitor serum creatinine. Add Diovan 80 mg twice daily. Consultation Date/Type/Reason Admit Date/Time Sep 06, 2016 at 20:38 Initial Consult Date 09/07/16 Type of Consultation: Pulmonary/critical care 24 HR Interval Summary Free Text/Dictation Patient's condition is stable. She has been complaining of headache and CT of the head was done a short while ago which is unremarkable. Patient with shortness of breath is improving. She was successfully extubated yesterday afternoon. Was maintained on BiPAP off and on. Currently off BiPAP. Denies any chest pain. General exam; middle-aged woman, awake and alert. Currently in no distress. Appears overweight. Exam/Review of Systems Vital Signs Vitals Vital Signs Date Time Temp Pulse Resp B/P Pulse Ox O2 Delivery O2 Flow Rate FiO2 09/12/16 10:30 99 3.0 09/12/16 09:49 88 30 09/12/16 08:05 Nasal Cannula 09/12/16 06:00 29 166/89 09/12/16 04:00 98.9 Intake and Output 09/11/16 09/11/16 09/12/16 15:00 23:00 07:00 Intake Total 119.66 ml 30 ml Output Total 380 ml 410 ml 300 ml Balance -260.34 ml -380 ml -300 ml Exam HEENT exam; supple neck, positive JVD. No lymphadenopathy. Midline trachea. No thyromegaly. Pupils are equal and reactive to light. No thyromegaly. Chest examination; diminished but clear vessel. S1-S2 audible, no murmurs. There is a pacemaker in the left chest wall. Abdomen examination; soft, nontender. No organomegaly. Bowel sounds audible. Next Extremity examination; no peripheral edema. Pulses 1+ bilaterally. No clubbing. CHORUS MASTER examination; no focal deficit. Results Result Diagram: 09/12/16 0525 09/12/16 0525 Results 24 hrs Laboratory Tests Test 09/11/16 13:02 09/11/16 13:30 09/11/16 17:35 09/11/16 21:44 Bedside Glucose 139 107 86 Blood Gas Specimen Source Blood arterial Arterial Blood Date Drawn 09/11/2016 1:40:00 PM Arterial Blood pH (Temp corrected) 7.409 Arterial Blood pCO2 (Temp correct) 37.3 Arterial Blood pO2 (Temp corrected) 96.9 Arterial Blood HCO3 23.1 Arterial Blood Base Excess -1.2 Arterial Blood Oxygen Saturation 96.8 Antonio Test ACCEPTAB Arterial Blood Gas Puncture Site Left Radial Arterial Blood Carboxyhemoglobin 0.1 Arterial Blood Methemoglobin 0.4 Blood Gas A-a O2 Differential 73.2 H Oxyhemoglobin Percent 96.3 Total Hemoglobin 13.8 Blood Gas Temperature 37.0 Blood Gas Respiration Rate 16.0 Blood Gas Actual Respiration Rate 28 Blood Gas Modality MASK - BIPAP FiO2 30.0 Blood Gas IPAP/EPAP Ratio 03/05 Blood Gas Notified Whom JLD Blood Gas Notified Time 09/11/2016 1:48:43 PM Test 09/12/16 01:39 09/12/16 05:25 09/12/16 05:27 Bedside Glucose 86 93 White Blood Count 8.9 Red Blood Count 4.17 L Hemoglobin 12.1 Hematocrit 40.2 Mean Corpuscular Volume 96.4 Mean Corpuscular Hemoglobin 29.0 Mean Corpuscular Hemoglobin Concent 30.1 L Red Cell Distribution Width 16.2 H Platelet Count 256 Mean Platelet Volume 10.9 H Neutrophils % 71.8 Lymphocytes % 13.9 L Monocytes % 10.8 Eosinophils % 2.8 Basophils % 0.5 Nucleated Red Blood Cells % 0.0 Neutrophils # 6.4 Lymphocytes # 1.2 Monocytes # 1.0 H Eosinophils # 0.3 Basophils # 0.0 Nucleated Red Blood Cells # 0.0 Sodium Level 150 H Potassium Level 4.0 Chloride Level 111 H Carbon Dioxide Level 27 Anion Gap 16 Blood Urea Nitrogen 40 H Creatinine 1.52 H Glucose Level 91 # Calcium Level 9.8 Phosphorus Level 4.8 Magnesium Level 2.6 H Total Bilirubin 0.5 Direct Bilirubin 0.00 Indirect Bilirubin 0.5 Aspartate Amino Transf (AST/SGOT) 26 Alanine Aminotransferase (ALT/SGPT) 28 Alkaline Phosphatase 253 H Total Protein 8.8 H Albumin 4.3 Globulin 4.50 H Albumin/Globulin Ratio 0.95 Medications Medications Current Medications Ondansetron HCl (Zofran Inj) 4 mg Q6H PRN IV NAUSEA AND/OR VOMITING Last administered on 09/11/16 16:49; Admin Dose 4 MG; Start 09/06/16 at 22:30 Acetaminophen (Tylenol Supp) 650 mg Q4H PRN DC PAIN LEVEL 1-3 OR FEVER Last administered on 09/09/16 17:50; Admin Dose 650 MG; Start 09/06/16 at 22:30 Hydromorphone HCl (Dilaudid) 0.5 mg Q4H PRN IV PAIN LEVEL 7-10 Last administered on 09/12/16 05:35; Admin Dose 0.5 MG; Start 09/06/16 at 22:30 Pantoprazole (Protonix Iv) 40 mg DAILY@06 IV Last administered on 09/12/16 05: 35; Admin Dose 40 MG; Start 09/07/16 at 06:00 Aspirin (Aspirin) 81 mg DAILY PO Last administered on 09/11/16 09:15; Admin Dose 81 MG; Start 09/06/16 at 22:30 Atorvastatin Calcium (Lipitor) 40 mg DAILY@21 PO Last administered on 20:39; Admin Dose 40 MG; Start 09/07/16 at 00:45 Miscellaneous Information 1 ea NOTE XX ; Start 09/07/16 at 00:30 Glucose (Glutose) 15 gm Q15M PRN PO DECREASED GLUCOSE; Start 09/07/16 at 00:30 Glucose (Glutose) 22.5 gm Q15M PRN PO DECREASED GLUCOSE; Start 09/07/16 at 00:30 Dextrose (D50w Syringe) 25 ml Q15M PRN IV DECREASED GLUCOSE; Start 09/07/16 at 00:30 Dextrose (D50w Syringe) 50 ml Q15M PRN IV DECREASED GLUCOSE; Start 09/07/16 at 00:30 Glucagon (Glucagen) 1 mg Q15M PRN IM DECREASED GLUCOSE; Start 09/07/16 at 00:30 Glucose (Glutose) 15 gm Q15M PRN BUCCAL DECREASED GLUCOSE; Start 09/07/16 at 00: 30 Lisinopril (Zestril) 2.5 mg BID PO Last administered on 09/11/16 09:15; Admin Dose 2.5 MG; Start 09/07/16 at 21:00 Enoxaparin Sodium (Lovenox) 40 mg DAILY SC Last administered on 09/11/16 09:23 ; Admin Dose 40 MG; Start 09/09/16 at 09:00 Mupirocin (Bactroban) 1 applic BID TOP Last administered on 09/11/16 21:44; Admin Dose 1 APPLIC; Start 09/08/16 at 14:00; Stop 09/21/16 at 21:01 Insulin Aspart (Novolog Insulin Pen) NOVOLOG *MILD* ALGORI... Q4 SC Last administered on 09/11/16 09:25; Admin Dose 1 UNIT; Start 09/10/16 at 21:00 Carvedilol (Coreg) 3.125 mg BID PO ; Start 09/11/16 at 21:00 Furosemide (Lasix) 20 mg DAILY@06 IV ; Start 09/13/16 at 06:00 Enalaprilat (Vasotec Iv) 1.25 mg Q8 PRN IV ELEVATED BLOOD PRESSURE; Start 09/12 at 09:30 JEANIE PINO Sep 12, 2016 11:48
[2016-09-12] MEDS: VALSARTAN 80 MG TAB PO SCH ×2 (12:00→20:35)
--- NOTE | 2016-09-12 12:36 | RADRPT ---
PROCEDURE: US Carotids. CLINICAL INDICATION: bruit , carotid stenosis TECHNIQUE: Multiple sonographic of the carotid bifurcation region and vertebral arteries were obta ined utilizing ridley scale, duplex and color-flow imaging. The images were reviewed on a PACS worksta tion. COMPARISON: No prior studies are available for comparison. FINDINGS: Evaluation of the right carotid bifurcation region reveals mild calcific atherosclerotic disease. Evaluation of the left carotid bifurcation region reveals mild calcific atherosclerotic disease. There is antegrade flow within the vertebral arteries bilaterally. RIGHT CAROTID MEASUREMENTS: Common Carotid Ounshl46.5 (cm/sec) Internal Carotid Artery - ojtfnegs05.7 (cm/sec) Internal Carotid Artery - mid79.4 (cm/sec) Internal Carotid Artery - ldoktm29.1 (cm/sec) Internal Carotid/Common Carotid1 LEFT CAROTID MEASUREMENTS: Common Carotid Qqdyby519.2 (cm/sec) Internal Carotid Artery - dbcrytpz23.1 (cm/sec) Internal Carotid Artery - mid81.2 (cm/sec) Internal Carotid Artery - avdvyt17.6 (cm/sec) Internal Carotid/Common Carotid0.8 RPTAT: AA IMPRESSION: No evidence for hemodynamically significant stenosis in the bilateral internal carotid arteries - va lidated velocity measurements with angiographic measurements, velocity criteria are extrapolated fro m diameter data as defined by the Society of Radiologists in Ultrasound Consensus Conference Radiolo gy 2003; 229;340-346. This study does indirectly reference the measurement of the distal ICA diamet er as the denominator for stenosis measurement. Normal antegrade flow in the vertebral arteries bilaterally. .Ford Aquino MD, MD Date Time Electronically viewed and signed by .Ford Aquino MD, on 09/12/2016 12:35 .S/
[2016-09-12] MEDS ORDERED: ASPIRIN 300 MG SUPP PR ONE (14:00)
--- NOTE | 2016-09-12 15:14 | CONS ---
Date/Time of Note Date/Time of Note DATE: 09/12/16 TIME: 15:12 Assessment/Plan Assessment/Plan Additional Assessment/Plan Acute decompensated systolic congestive heart failure Severe cardiomyopathy with ejection fraction 25% Respiratory failure status post extubation Mildly elevated troponin History of hypertension Diabetes History of AICD -Patient currently off BiPAP on nasal cannula. Feeling better. Continue diuretics as blood pressure and renal function permits. LEA inhibitor has been switched to ARB by primary team. Will continue as renal function permits. CT head with possible subacute CVA versus chronic, awaiting neurologic evaluation. Would consider changing aspirin to Plavix therapy. Continue statin therapy. Consultation Date/Type/Reason Admit Date/Time Sep 06, 2016 at 20:38 Initial Consult Date 09/07/16 Type of Consultation: cv 24 HR Interval Summary Free Text/Dictation Feeling better, less shortness of breath. Denies chest pain or palpitations Exam/Review of Systems Vital Signs Vitals Vital Signs Date Time Temp Pulse Resp B/P Pulse Ox O2 Delivery O2 Flow Rate FiO2 09/12/16 12:00 86 09/12/16 10:30 99 3.0 09/12/16 09:49 30 09/12/16 08:05 Nasal Cannula 09/12/16 06:00 29 166/89 09/12/16 04:00 98.9 Intake and Output 09/11/16 09/11/16 09/12/16 15:00 23:00 07:00 Intake Total 119.66 ml 30 ml Output Total 380 ml 410 ml 300 ml Balance -260.34 ml -380 ml -300 ml Exam Following commands, able to give some history with mild dyspnea with extensively speaking Constitutional: alert, oriented Head: normocephalic Respiratory: other (Coarse breath sounds bilaterally, no wheezing) Cardiovascular: other (S1-S2 heard), regular rate and rhythm Gastrointestinal: bowel sounds, non-tender, soft Extremities: edema, other (No cyanosis) Results Result Diagram: 09/12/16 0525 09/12/16 0525 Results 24 hrs Laboratory Tests Test 09/11/16 17:35 09/11/16 21:44 09/12/16 01:39 09/12/16 05:25 Bedside Glucose 107 86 86 White Blood Count 8.9 Red Blood Count 4.17 L Hemoglobin 12.1 Hematocrit 40.2 Mean Corpuscular Volume 96.4 Mean Corpuscular Hemoglobin 29.0 Mean Corpuscular Hemoglobin Concent 30.1 L Red Cell Distribution Width 16.2 H Platelet Count 256 Mean Platelet Volume 10.9 H Neutrophils % 71.8 Lymphocytes % 13.9 L Monocytes % 10.8 Eosinophils % 2.8 Basophils % 0.5 Nucleated Red Blood Cells % 0.0 Neutrophils # 6.4 Lymphocytes # 1.2 Monocytes # 1.0 H Eosinophils # 0.3 Basophils # 0.0 Nucleated Red Blood Cells # 0.0 Sodium Level 150 H Potassium Level 4.0 Chloride Level 111 H Carbon Dioxide Level 27 Anion Gap 16 Blood Urea Nitrogen 40 H Creatinine 1.52 H Glucose Level 91 # Calcium Level 9.8 Phosphorus Level 4.8 Magnesium Level 2.6 H Total Bilirubin 0.5 Direct Bilirubin 0.00 Indirect Bilirubin 0.5 Aspartate Amino Transf (AST/SGOT) 26 Alanine Aminotransferase (ALT/SGPT) 28 Alkaline Phosphatase 253 H Total Protein 8.8 H Albumin 4.3 Globulin 4.50 H Albumin/Globulin Ratio 0.95 Test 09/12/16 05:27 09/12/16 13:01 Bedside Glucose 93 94 Medications Medications Current Medications Ondansetron HCl (Zofran Inj) 4 mg Q6H PRN IV NAUSEA AND/OR VOMITING Last administered on 09/11/16 16:49; Admin Dose 4 MG; Start 09/06/16 at 22:30 Acetaminophen (Tylenol Supp) 650 mg Q4H PRN [place] PAIN LEVEL 1-3 OR FEVER Last administered on 09/09/16 17:50; Admin Dose 650 MG; Start 09/06/16 at 22:30 Hydromorphone HCl (Dilaudid) 0.5 mg Q4H PRN IV PAIN LEVEL 7-10 Last administered on 09/12/16 12:09; Admin Dose 0.5 MG; Start 09/06/16 at 22:30 Pantoprazole (Protonix Iv) 40 mg DAILY@06 IV Last administered on 09/12/16 05: 35; Admin Dose 40 MG; Start 09/07/16 at 06:00 Aspirin (Aspirin) 81 mg DAILY PO Last administered on 09/11/16 09:15; Admin Dose 81 MG; Start 09/06/16 at 22:30 Atorvastatin Calcium (Lipitor) 40 mg DAILY@21 PO Last administered on 20:39; Admin Dose 40 MG; Start 09/07/16 at 00:45 Miscellaneous Information 1 ea NOTE XX ; Start 09/07/16 at 00:30 Glucose (Glutose) 15 gm Q15M PRN PO DECREASED GLUCOSE; Start 09/07/16 at 00:30 Glucose (Glutose) 22.5 gm Q15M PRN PO DECREASED GLUCOSE; Start 09/07/16 at 00:30 Dextrose (D50w Syringe) 25 ml Q15M PRN IV DECREASED GLUCOSE; Start 09/07/16 at 00:30 Dextrose (D50w Syringe) 50 ml Q15M PRN IV DECREASED GLUCOSE; Start 09/07/16 at 00:30 Glucagon (Glucagen) 1 mg Q15M PRN IM DECREASED GLUCOSE; Start 09/07/16 at 00:30 Glucose (Glutose) 15 gm Q15M PRN BUCCAL DECREASED GLUCOSE; Start 09/07/16 at 00: 30 Enoxaparin Sodium (Lovenox) 40 mg DAILY SC Last administered on 09/11/16 09:23 ; Admin Dose 40 MG; Start 09/09/16 at 09:00 Mupirocin (Bactroban) 1 applic BID TOP Last administered on 09/11/16 21:44; Admin Dose 1 APPLIC; Start 09/08/16 at 14:00; Stop 09/21/16 at 21:01 Insulin Aspart (Novolog Insulin Pen) NOVOLOG *MILD* ALGORI... Q4 SC Last administered on 09/11/16 09:25; Admin Dose 1 UNIT; Start 09/10/16 at 21:00 Carvedilol (Coreg) 3.125 mg BID PO ; Start 09/11/16 at 21:00 Furosemide (Lasix) 20 mg DAILY@06 IV ; Start 09/13/16 at 06:00 Enalaprilat (Vasotec Iv) 1.25 mg Q8 PRN IV ELEVATED BLOOD PRESSURE; Start 09/12 at 09:30 Valsartan (Diovan) 80 mg BID PO ; Start 09/12/16 at 12:00 Ricardo Kingsley DO Sep 12, 2016 15:14
[2016-09-12] MEDS: ATORVASTATIN 40 MG TAB PO SCH (20:35)
[2016-09-13] VITALS (20 sets, daily range): BP systolic 107–155; BP diastolic 54–98; PULSE 81–103; RESP 20–35
[2016-09-13] MEDS: INSULIN ASPART [NOVOLOG] 3 ML PEN SC SCH ×6 (01:00→21:13)
[2016-09-13] MEDS: FUROSEMIDE 20 MG INJ IV SCH (06:07)
[2016-09-13] MEDS: SPIRONOLACTONE 25 MG TAB NGT SCH ×2 (06:07→18:59)
[2016-09-13] MEDS: PANTOPRAZOLE 40 MG INJ IV SCH (06:08)
[2016-09-13 06:58] LABS: ADD SCAN DIFF NO
[2016-09-13 07:12] LABS: BASOPHILS % 0.4 % (0.0-2.0); EOSINOPHILS # 0.3 10^3/ul (0.0-0.5); EOSINOPHILS % 2.5 % (0.0-7.0); HEMATOCRIT 41.8 % (37.0-47.0); HEMOGLOBIN 12.5 g/dl (12.0-16.0); LYMPHOCYTES % 9.7 % (15.0-51.0); MEAN CORPUSCULAR HGB CONC 29.9 g/dl (32.0-37.0); MEAN PLATELET VOLUME 10.3 fl (7.4-10.4); NEUTROPHIL # 7.7 10^3/ul (1.6-7.5); NEUTROPHILS % 77.1 % (39.0-77.0); PLATELET COUNT 283 10^3/UL (140-415); RED BLOOD COUNT 4.31 10^6/ul (4.20-5.40); RED CELL DISTRIBUTION WIDTH 15.5 % (11.5-14.5)
[2016-09-13 07:58] LABS: CALCIUM 10.4 mg/dl (8.4-10.2); CREATININE 1.24 mg/dl (0.44-1.00); POTASSIUM 4.3 mmol/L (3.5-5.1)
[2016-09-13] MEDS: MUPIROCIN 2% 22 GM OINT TOP SCH ×2 (09:10→21:13)
[2016-09-13] MEDS: ALBUTEROL/IPRATROPIUM (NEB) 3 ML AMP HHN SCH ×3 (09:14→23:08)
--- NOTE | 2016-09-13 09:34 | PN ---
Date/Time of Note Date/Time of Note DATE: 09/13/16 TIME: 09:07 Assessment/Plan VTE Prophylaxis VTE Prophylaxis Intervention: LMWH Lines/Catheters IV Catheter Type (from Nrs): Saline Lock Urinary Cath still in place: Yes Reason Cath still needed: other (indicate) (ILAN and monitor UOP ) Assessment/Plan Assessment/Plan 60 yo female with: 1. Acute Hypoxemic respiratory failure, likely 2ry to pulmonary edema and CHF, ? triggered by acute cardiac event. On BiPAP this AM post extubation yesterday afternoon Diuresing and Pulmonary following for vent management, on Lasix and Aldactone, lower dose, CXR still with pulmonary edema Appreciate cardiac recs AICD in place and echo with EF of 25 %. 2. NSTEMI, with Cardiomyopathy EF 25%, s/p AICD. Patient noted to have occasional episodes of NSVT last week. Cardiology, Dr Kingsley following and troponins back to normal. Continue current meds and also ASA, Lovenox Repleting electrolytes prn 3. Congestive Heart Failure, systolic dysfunction acute on chronic with EF of 25 %. Still with pulmonary edema Appreciate recs from Dr Kingsley and diuresing with lower dose of Lasix and Aldactone Continue current meds. 4. Cirrhosis, unknown history , so ? etiology. Patient also with Uterine Leiomyoma per records. Ammonia OK and liver function OK . CT abdo/perlvis with NO masses just cirrhosis and small fat containing umbilical hernia Monitor LFTs and liver function, stable so far 5. ILAN vs CKD, renal function remains fairly stable while being diuresed with Lasix 20 mg IV daily+Aldactone 25 mg po bid. Pre renal azotemia, hypernatremia, creat better. Cannot take much po and on BiPAP Start D5W @ 50 cc/hr. Renal US ? mild right hydronephrosis Moraes in place, continue to monitor. 6. Subacute to chronic CVA, on antiplatelets and carotid Doppler with mild disease. Continue antiplatelets Neurology eval pending 7. Hyperglycemia: On SSI, A1c 7.5. Prophylaxis: GI ppx with Protonix and on ppx dose of Lovenox now. Disposition: On BiPAP currently, Neurology eval pending Pulmonary and Cardiology following. Subjective 24 Hr Interval Summary Free Text/Dictation Patient back on BiPAP this AM and complaining of SOB and noted in respiratory distress again Nebs, on diuretics already Keep in ICU Exam/Review of Systems Vital Signs Vitals Vital Signs Date Time Temp Pulse Resp B/P Pulse Ox O2 Delivery O2 Flow Rate FiO2 09/13/16 05:00 91 26 143/71 99 Nasal Cannula 09/13/16 04:41 3.0 09/13/16 04:00 99.2 09/13/16 03:17 30 Intake and Output 09/12/16 09/12/16 09/13/16 15:00 23:00 07:00 Output Total 900 ml 590 ml 315 ml Balance -900 ml -590 ml -315 ml Exam Constitutional: alert, obese, oriented (x3), well developed Respiratory: diminished breath sounds (bases bilaterally) Cardiovascular: nl pulses, other (ICD in place ), regular rate and rhythm Gastrointestinal: non-tender, other (obese abdomen ), soft Musculoskeletal: nl extremities to inspection, other (no edema, clubbing or cyanosis ) Extremities: normal pulses Neurological: PLANT EQUIPMENT ENGINEER II-XII intact, lethargic (in respiratory distress during exam ), nl mental status, other (respiratory distress with speech ) Results Result Diagram: 09/13/16 0540 09/13/16 0548 Results 24 hrs Laboratory Tests Test 09/12/16 13:01 09/12/16 18:31 09/12/16 20:40 09/13/16 00:59 Bedside Glucose 94 89 104 98 Test 09/13/16 05:40 09/13/16 05:48 09/13/16 06:09 White Blood Count 10.0 Red Blood Count 4.31 Hemoglobin 12.5 Hematocrit 41.8 Mean Corpuscular Volume 97.0 Mean Corpuscular Hemoglobin 29.0 Mean Corpuscular Hemoglobin Concent 29.9 L Red Cell Distribution Width 15.5 H Platelet Count 283 Mean Platelet Volume 10.3 Neutrophils % 77.1 H Lymphocytes % 9.7 L Monocytes % 10.0 Eosinophils % 2.5 Basophils % 0.4 Nucleated Red Blood Cells % 0.0 Neutrophils # 7.7 H Lymphocytes # 1.0 Monocytes # 1.0 H Eosinophils # 0.3 Basophils # 0.0 Nucleated Red Blood Cells # 0.0 Sodium Level 156 H Potassium Level 4.3 Chloride Level 114 H Carbon Dioxide Level 27 Anion Gap 19 H Blood Urea Nitrogen 43 H Creatinine 1.24 H Glucose Level 113 Calcium Level 10.4 H Bedside Glucose 110 Medications Medications Current Medications Ondansetron HCl (Zofran Inj) 4 mg Q6H PRN IV NAUSEA AND/OR VOMITING Last administered on 09/11/16 16:49; Admin Dose 4 MG; Start 09/06/16 at 22:30 Acetaminophen (Tylenol Supp) 650 mg Q4H PRN [place] PAIN LEVEL 1-3 OR FEVER Last administered on 09/09/16 17:50; Admin Dose 650 MG; Start 09/06/16 at 22:30 Hydromorphone HCl (Dilaudid) 0.5 mg Q4H PRN IV PAIN LEVEL 7-10 Last administered on 09/12/16 20:47; Admin Dose 0.5 MG; Start 09/06/16 at 22:30 Pantoprazole (Protonix Iv) 40 mg DAILY@06 IV Last administered on 09/13/16 06: 08; Admin Dose 40 MG; Start 09/07/16 at 06:00 Aspirin (Aspirin) 81 mg DAILY PO Last administered on 09/11/16 09:15; Admin Dose 81 MG; Start 09/06/16 at 22:30 Atorvastatin Calcium (Lipitor) 40 mg DAILY@21 PO Last administered on 20:35; Admin Dose 40 MG; Start 09/07/16 at 00:45 Miscellaneous Information 1 ea NOTE XX ; Start 09/07/16 at 00:30 Glucose (Glutose) 15 gm Q15M PRN PO DECREASED GLUCOSE; Start 09/07/16 at 00:30 Glucose (Glutose) 22.5 gm Q15M PRN PO DECREASED GLUCOSE; Start 09/07/16 at 00:30 Dextrose (D50w Syringe) 25 ml Q15M PRN IV DECREASED GLUCOSE; Start 09/07/16 at 00:30 Dextrose (D50w Syringe) 50 ml Q15M PRN IV DECREASED GLUCOSE; Start 09/07/16 at 00:30 Glucagon (Glucagen) 1 mg Q15M PRN IM DECREASED GLUCOSE; Start 09/07/16 at 00:30 Glucose (Glutose) 15 gm Q15M PRN BUCCAL DECREASED GLUCOSE; Start 09/07/16 at 00: 30 Enoxaparin Sodium (Lovenox) 40 mg DAILY SC Last administered on 09/11/16 09:23 ; Admin Dose 40 MG; Start 09/09/16 at 09:00 Mupirocin (Bactroban) 1 applic BID TOP Last administered on 09/12/16 20:35; Admin Dose 1 APPLIC; Start 09/08/16 at 14:00; Stop 09/21/16 at 21:01 Insulin Aspart (Novolog Insulin Pen) NOVOLOG *MILD* ALGORI... Q4 SC Last administered on 09/11/16 09:25; Admin Dose 1 UNIT; Start 09/10/16 at 21:00 Carvedilol (Coreg) 3.125 mg BID PO Last administered on 09/12/16 20:35; Admin Dose 3.125 MG; Start 09/11/16 at 21:00 Furosemide (Lasix) 20 mg DAILY@06 IV Last administered on 09/13/16 06:07; Admin Dose 20 MG; Start 09/13/16 at 06:00 Enalaprilat (Vasotec Iv) 1.25 mg Q8 PRN IV ELEVATED BLOOD PRESSURE; Start 09/12 at 09:30 Valsartan (Diovan) 80 mg BID PO Last administered on 09/12/16 20:35; Admin Dose 80 MG; Start 09/12/16 at 12:00 MACKENZIE ESCOBAR Sep 13, 2016 09:18
[2016-09-13 10:09] LABS: MAGNESIUM 2.8 mg/dl (1.7-2.5); PHOSPHORUS 3.9 mg/dl (2.5-4.9)
--- NOTE | 2016-09-13 10:23 | CONS ---
Date/Time of Note Date/Time of Note DATE: 09/13/16 TIME: 10:19 Assessment/Plan Assessment/Plan Additional Assessment/Plan Assessment recommendations; next 1. Patient admitted for flash pulmonary edema leading to respiratory failure. 2. Underlying severe cardiomyopathy. 3. History of severe hypertension. 4. Renal insufficiency, with improvement in serum creatinine after decreasing Lasix dosing. Continue current treatment. Continue BiPAP as needed. Consider increasing Lasix dosing to 40 mg IV every 12 hours. Prognosis remains guarded. Consultation Date/Type/Reason Admit Date/Time Sep 06, 2016 at 20:38 Initial Consult Date 09/07/16 Type of Consultation: Pulmonary/critical care 24 HR Interval Summary Free Text/Dictation Patient condition is tenuous at best. Still requiring BiPAP off and on. Patient reports decreased shortness of breath. Denies any chest pain. General exam; elderly lady, awake alert currently in no distress. Appears quite overweight. Exam/Review of Systems Vital Signs Vitals Vital Signs Date Time Temp Pulse Resp B/P Pulse Ox O2 Delivery O2 Flow Rate FiO2 09/13/16 09:15 103 100 30 09/13/16 05:00 26 143/71 Nasal Cannula 09/13/16 04:41 3.0 09/13/16 04:00 99.2 Intake and Output 09/12/16 09/12/16 09/13/16 15:00 23:00 07:00 Output Total 900 ml 590 ml 315 ml Balance -900 ml -590 ml -315 ml Exam HEENT examination; supple neck, positive JVD. No lymphadenopathy. Midline trachea. No thyromegaly. Patient has fair dentition. Pupils are midsize and reactive to light. Chest examination; diminished but clear vessel. S1-S2 audible, no murmurs. Regular rhythm. Pacemaker in left chest wall. Abdomen examination; soft, no organomegaly. Bowel sounds audible. Extremity examination; no peripheral edema. Pulses 2+ bilaterally. IT SALES REPRESENTATIVE examination; no focal deficit. Results Result Diagram: 09/13/16 0540 09/13/16 0548 Results 24 hrs Laboratory Tests Test 09/12/16 13:01 09/12/16 18:31 09/12/16 20:40 09/13/16 00:59 Bedside Glucose 94 89 104 98 Test 09/13/16 05:40 09/13/16 05:48 09/13/16 06:09 White Blood Count 10.0 Red Blood Count 4.31 Hemoglobin 12.5 Hematocrit 41.8 Mean Corpuscular Volume 97.0 Mean Corpuscular Hemoglobin 29.0 Mean Corpuscular Hemoglobin Concent 29.9 L Red Cell Distribution Width 15.5 H Platelet Count 283 Mean Platelet Volume 10.3 Neutrophils % 77.1 H Lymphocytes % 9.7 L Monocytes % 10.0 Eosinophils % 2.5 Basophils % 0.4 Nucleated Red Blood Cells % 0.0 Neutrophils # 7.7 H Lymphocytes # 1.0 Monocytes # 1.0 H Eosinophils # 0.3 Basophils # 0.0 Nucleated Red Blood Cells # 0.0 Phosphorus Level 3.9 Magnesium Level 2.8 H Sodium Level 156 H Potassium Level 4.3 Chloride Level 114 H Carbon Dioxide Level 27 Anion Gap 19 H Blood Urea Nitrogen 43 H Creatinine 1.24 H Glucose Level 113 Calcium Level 10.4 H Bedside Glucose 110 Medications Medications Current Medications Ondansetron HCl (Zofran Inj) 4 mg Q6H PRN IV NAUSEA AND/OR VOMITING Last administered on 09/11/16 16:49; Admin Dose 4 MG; Start 09/06/16 at 22:30 Acetaminophen (Tylenol Supp) 650 mg Q4H PRN [place] PAIN LEVEL 1-3 OR FEVER Last administered on 09/09/16 17:50; Admin Dose 650 MG; Start 09/06/16 at 22:30 Hydromorphone HCl (Dilaudid) 0.5 mg Q4H PRN IV PAIN LEVEL 7-10 Last administered on 09/12/16 20:47; Admin Dose 0.5 MG; Start 09/06/16 at 22:30 Pantoprazole (Protonix Iv) 40 mg DAILY@06 IV Last administered on 09/13/16 06: 08; Admin Dose 40 MG; Start 09/07/16 at 06:00 Aspirin (Aspirin) 81 mg DAILY PO Last administered on 09/11/16 09:15; Admin Dose 81 MG; Start 09/06/16 at 22:30 Atorvastatin Calcium (Lipitor) 40 mg DAILY@21 PO Last administered on 20:35; Admin Dose 40 MG; Start 09/07/16 at 00:45 Miscellaneous Information 1 ea NOTE XX ; Start 09/07/16 at 00:30 Glucose (Glutose) 15 gm Q15M PRN PO DECREASED GLUCOSE; Start 09/07/16 at 00:30 Glucose (Glutose) 22.5 gm Q15M PRN PO DECREASED GLUCOSE; Start 09/07/16 at 00:30 Dextrose (D50w Syringe) 25 ml Q15M PRN IV DECREASED GLUCOSE; Start 09/07/16 at 00:30 Dextrose (D50w Syringe) 50 ml Q15M PRN IV DECREASED GLUCOSE; Start 09/07/16 at 00:30 Glucagon (Glucagen) 1 mg Q15M PRN IM DECREASED GLUCOSE; Start 09/07/16 at 00:30 Glucose (Glutose) 15 gm Q15M PRN BUCCAL DECREASED GLUCOSE; Start 09/07/16 at 00: 30 Enoxaparin Sodium (Lovenox) 40 mg DAILY SC Last administered on 09/11/16 09:23 ; Admin Dose 40 MG; Start 09/09/16 at 09:00 Mupirocin (Bactroban) 1 applic BID TOP Last administered on 09/12/16 20:35; Admin Dose 1 APPLIC; Start 09/08/16 at 14:00; Stop 09/21/16 at 21:01 Insulin Aspart (Novolog Insulin Pen) NOVOLOG *MILD* ALGORI... Q4 SC Last administered on 09/11/16 09:25; Admin Dose 1 UNIT; Start 09/10/16 at 21:00 Carvedilol (Coreg) 3.125 mg BID PO Last administered on 09/12/16 20:35; Admin Dose 3.125 MG; Start 09/11/16 at 21:00 Furosemide (Lasix) 20 mg DAILY@06 IV Last administered on 09/13/16 06:07; Admin Dose 20 MG; Start 09/13/16 at 06:00 Enalaprilat (Vasotec Iv) 1.25 mg Q8 PRN IV ELEVATED BLOOD PRESSURE; Start 09/12 at 09:30 Valsartan 80 mg 80 mg BID PO Last administered on 09/12/16 20:35; Admin Dose 80 MG; Start 09/12/16 at 12:00 Dextrose (D5W) 1,000 ml @ 50 mls/hr Q20H IV ; Start 09/13/16 at 10:00 JEANIE PINO Sep 13, 2016 10:23
[2016-09-13] MEDS: VALSARTAN 80 MG TAB PO SCH ×2 (11:32→21:11)
[2016-09-13] MEDS: ENOXAPARIN 40 MG/0.4 ML SYG SC SCH (11:33)
[2016-09-13] MEDS: ASPIRIN 81 MG TAB PO SCH (11:33)
--- NOTE | 2016-09-13 12:10 | CONS ---
Date/Time of Note Date/Time of Note DATE: 09/13/16 TIME: 11:59 Assessment/Plan Assessment/Plan Chief Complaint/Hosp Course 60 yo female with HTN, DM with decompensated heart failure EF 25% with ICD admitted with pulmonary edema, NSTEMI, brain imaging suggestive of subacute appearing right frontal operculum infarct. Exam consistent with some mild left sided face and arm weakness with right leg weakness. Recommendations: unable to perform MRI, will recommend repeat Head CT to evaluate for progression of infarction maintain normotensive blood pressure will increase aspirin to 325 mg daily Carotid duplex checked HBA1C 7.5% adjust insulin for target dosing less than 7.0% check FLP if LDL above 100 will recommend increasing Lipitor dose to 80 mg qhs for target <70 DVT ppx PT/OT/Speech evaluation will follow with further recommendations Problems: Consultation Date/Type/Reason Admit Date/Time Sep 06, 2016 at 20:38 Date of Consultation: Sep 13, 2016 Type of Consultation: Neurology Reason for Consultation CVA Referring Provider: MACKENZIE ESCOBAR Hx of Present Illness 60 year old female with history of acute decompensated CHF severe cardiomyopathy EF: 25% with ICD, HTN, DM admitted with SOB with pulmonary edema respiratory failure requiring intubation and diuresis s/p extubation admitted to ICU for management. CTH was done showed right frontal operculum infarction possibly subacute- chronic, unable to obtain MRI due to ICD. Carotid Duplex shows no significant stenosis. She is currently managed on aspirin 81 mg and Lipitor 40 mg qhs, no history of afib. Troponins trending down. HBA1C: 7.5% denies chest pain shortness of breath no complaints Past Medical History Medical History: congestive heart failure, diabetes, hypertension Social History Smoking Status: Unknown if ever smoked Exam/Review of Systems Vital Signs Vitals Vital Signs Date Time Temp Pulse Resp B/P Pulse Ox O2 Delivery O2 Flow Rate FiO2 09/13/16 09:15 103 100 30 09/13/16 05:00 26 143/71 Nasal Cannula 09/13/16 04:41 3.0 09/13/16 04:00 99.2 Intake and Output 09/12/16 09/12/16 09/13/16 15:00 23:00 07:00 Output Total 900 ml 590 ml 315 ml Balance -900 ml -590 ml -315 ml Exam awake and alert oriented to self, 2017, [facility] in[facility] some difficulty with following commands CN: SAMANTA, poor acuity in right eye baseline, EOMI no nystagmus left facial asymmetry palate upgoing uvula midline voice hypophonic Motor: left arm pronates, mild drift, right arm intact strength left leg can move in plane of the bed c/o pain, right leg appears externally rotated with less strength than the left can wiggle toes but difficulty moving side to side Sensory intact Coordination poor cooperative more ataxia appreciated on left FTN than right Reflexes 1+ toes are downgoing Results Result Diagram: 09/13/16 0540 09/13/16 0548 Results 24 hrs Laboratory Tests Test 09/12/16 13:01 09/12/16 18:31 09/12/16 20:40 09/13/16 00:59 Bedside Glucose 94 89 104 98 Test 09/13/16 05:40 09/13/16 05:48 09/13/16 06:09 09/13/16 11:12 White Blood Count 10.0 Red Blood Count 4.31 Hemoglobin 12.5 Hematocrit 41.8 Mean Corpuscular Volume 97.0 Mean Corpuscular Hemoglobin 29.0 Mean Corpuscular Hemoglobin Concent 29.9 L Red Cell Distribution Width 15.5 H Platelet Count 283 Mean Platelet Volume 10.3 Neutrophils % 77.1 H Lymphocytes % 9.7 L Monocytes % 10.0 Eosinophils % 2.5 Basophils % 0.4 Nucleated Red Blood Cells % 0.0 Neutrophils # 7.7 H Lymphocytes # 1.0 Monocytes # 1.0 H Eosinophils # 0.3 Basophils # 0.0 Nucleated Red Blood Cells # 0.0 Phosphorus Level 3.9 Magnesium Level 2.8 H Sodium Level 156 H Potassium Level 4.3 Chloride Level 114 H Carbon Dioxide Level 27 Anion Gap 19 H Blood Urea Nitrogen 43 H Creatinine 1.24 H Glucose Level 113 Calcium Level 10.4 H CA 125 Antigen 429.0 H Bedside Glucose 110 137 Medications Medications Current Medications Ondansetron HCl (Zofran Inj) 4 mg Q6H PRN IV NAUSEA AND/OR VOMITING Last administered on 09/11/16 16:49; Admin Dose 4 MG; Start 09/06/16 at 22:30 Acetaminophen (Tylenol Supp) 650 mg Q4H PRN [place] PAIN LEVEL 1-3 OR FEVER Last administered on 09/09/16 17:50; Admin Dose 650 MG; Start 09/06/16 at 22:30 Hydromorphone HCl (Dilaudid) 0.5 mg Q4H PRN IV PAIN LEVEL 7-10 Last administered on 09/12/16 20:47; Admin Dose 0.5 MG; Start 09/06/16 at 22:30 Pantoprazole (Protonix Iv) 40 mg DAILY@06 IV Last administered on 09/13/16 06: 08; Admin Dose 40 MG; Start 09/07/16 at 06:00 Aspirin (Aspirin) 81 mg DAILY PO Last administered on 09/13/16 11:33; Admin Dose 81 MG; Start 09/06/16 at 22:30 Atorvastatin Calcium (Lipitor) 40 mg DAILY@21 PO Last administered on 20:35; Admin Dose 40 MG; Start 09/07/16 at 00:45 Miscellaneous Information 1 ea NOTE XX ; Start 09/07/16 at 00:30 Glucose (Glutose) 15 gm Q15M PRN PO DECREASED GLUCOSE; Start 09/07/16 at 00:30 Glucose (Glutose) 22.5 gm Q15M PRN PO DECREASED GLUCOSE; Start 09/07/16 at 00:30 Dextrose (D50w Syringe) 25 ml Q15M PRN IV DECREASED GLUCOSE; Start 09/07/16 at 00:30 Dextrose (D50w Syringe) 50 ml Q15M PRN IV DECREASED GLUCOSE; Start 09/07/16 at 00:30 Glucagon (Glucagen) 1 mg Q15M PRN IM DECREASED GLUCOSE; Start 09/07/16 at 00:30 Glucose (Glutose) 15 gm Q15M PRN BUCCAL DECREASED GLUCOSE; Start 09/07/16 at 00: 30 Enoxaparin Sodium (Lovenox) 40 mg DAILY SC Last administered on 09/13/16 11:33 ; Admin Dose 40 MG; Start 09/09/16 at 09:00 Mupirocin (Bactroban) 1 applic BID TOP Last administered on 09/12/16 20:35; Admin Dose 1 APPLIC; Start 09/08/16 at 14:00; Stop 09/21/16 at 21:01 Insulin Aspart (Novolog Insulin Pen) NOVOLOG *MILD* ALGORI... Q4 SC Last administered on 09/11/16 09:25; Admin Dose 1 UNIT; Start 09/10/16 at 21:00 Carvedilol (Coreg) 3.125 mg BID PO Last administered on 09/13/16 11:34; Admin Dose 3.125 MG; Start 09/11/16 at 21:00 Furosemide (Lasix) 20 mg DAILY@06 IV Last administered on 09/13/16 06:07; Admin Dose 20 MG; Start 09/13/16 at 06:00 Enalaprilat (Vasotec Iv) 1.25 mg Q8 PRN IV ELEVATED BLOOD PRESSURE; Start 09/12 at 09:30 Valsartan 80 mg 80 mg BID PO Last administered on 09/13/16 11:32; Admin Dose 80 MG; Start 09/12/16 at 12:00 Dextrose (D5W) 1,000 ml @ 50 mls/hr Q20H IV ; Start 09/13/16 at 10:00 ADAM BUTT MD Sep 13, 2016 12:10
--- NOTE | 2016-09-13 13:06 | RADRPT ---
PROCEDURE: CT Brain without contrast. CLINICAL INDICATION: Neurologic deficit TECHNIQUE: A CT of the brain was performed on multidetector high-resolution CT scanner utilizing a xial sections from the skull base through the vertex without contrast. One or more of the following dose reduction techniques were used: Automated exposure control, Adjustment of the mA and/or kV acc ording to patient size, and/or use of iterative reconstruction technique. DOSE: CTDI = 44 mGy and the DLP = 630 mGy-cm. COMPARISON: Head CT yesterday FINDINGS: Cortical hypoattenuation of the right frontal opercular region is unchanged. No acute intracranial hemorrhage, significant mass effect or midline shift. The ridley-white different iation is otherwise grossly preserved. The ventricles are normal in size for age. Partially opacified sphenoid sinus bilaterally with layer ing fluid. IMPRESSION: No significant change in appearance of the subacute to chronic right frontal opercular cortical infa rct. No acute hemorrhage or significant mass effect. Partially opacified sphenoid sinus bilaterally with layering fluid. RPTAT: AA .Franki Cruz MD, Date Time Electronically viewed and signed by .Franki Cruz MD, on 09/13/2016 13:06 .T/
[2016-09-13] MEDS: DEXTROSE 5% 1,000 ML IV SCH (19:08)
[2016-09-13] MEDS: ATORVASTATIN 40 MG TAB PO SCH (21:11)
--- NOTE | 2016-09-13 23:36 | CONS ---
Date/Time of Note Date/Time of Note DATE: 09/13/16 TIME: 23:34 Assessment/Plan Assessment/Plan Additional Assessment/Plan Acute decompensated systolic congestive heart failure Severe cardiomyopathy with ejection fraction 25% Respiratory failure status post extubation Mildly elevated troponin History of hypertension Diabetes History of AICD -BP trend stable. Cont diuresis as renal fxn and BP tolerates. Consultation Date/Type/Reason Admit Date/Time Sep 06, 2016 at 20:38 Initial Consult Date 09/07/16 Type of Consultation: cv Referring Provider: MACKENZIE ESCOBAR 24 HR Interval Summary Free Text/Dictation sob better, no cp Exam/Review of Systems Vital Signs Vitals Vital Signs Date Time Temp Pulse Resp B/P Pulse Ox O2 Delivery O2 Flow Rate FiO2 09/13/16 22:41 92 99 30 09/13/16 14:01 Nasal Cannula 4.0 09/13/16 05:00 26 143/71 09/13/16 04:00 99.2 Intake and Output 09/12/16 09/12/16 09/13/16 15:00 23:00 07:00 Output Total 900 ml 590 ml 415 ml Balance -900 ml -590 ml -415 ml Exam nad Constitutional: alert, oriented Head: normocephalic Respiratory: other (course bs B/L, no wheeze) Cardiovascular: other (s1s2), regular rate and rhythm Gastrointestinal: bowel sounds, non-tender, soft Extremities: edema Results Result Diagram: 09/13/16 0540 09/13/16 0548 Results 24 hrs Laboratory Tests Test 09/13/16 00:59 09/13/16 05:40 09/13/16 05:48 09/13/16 06:09 Bedside Glucose 98 110 White Blood Count 10.0 Red Blood Count 4.31 Hemoglobin 12.5 Hematocrit 41.8 Mean Corpuscular Volume 97.0 Mean Corpuscular Hemoglobin 29.0 Mean Corpuscular Hemoglobin Concent 29.9 L Red Cell Distribution Width 15.5 H Platelet Count 283 Mean Platelet Volume 10.3 Neutrophils % 77.1 H Lymphocytes % 9.7 L Monocytes % 10.0 Eosinophils % 2.5 Basophils % 0.4 Nucleated Red Blood Cells % 0.0 Neutrophils # 7.7 H Lymphocytes # 1.0 Monocytes # 1.0 H Eosinophils # 0.3 Basophils # 0.0 Nucleated Red Blood Cells # 0.0 Phosphorus Level 3.9 Magnesium Level 2.8 H Sodium Level 156 H Potassium Level 4.3 Chloride Level 114 H Carbon Dioxide Level 27 Anion Gap 19 H Blood Urea Nitrogen 43 H Creatinine 1.24 H Glucose Level 113 Calcium Level 10.4 H CA 125 Antigen 429.0 H Test 09/13/16 11:12 09/13/16 13:14 09/13/16 18:47 09/13/16 21:12 Bedside Glucose 137 130 147 159 Medications Medications Current Medications Ondansetron HCl (Zofran Inj) 4 mg Q6H PRN IV NAUSEA AND/OR VOMITING Last administered on 09/11/16 16:49; Admin Dose 4 MG; Start 09/06/16 at 22:30 Acetaminophen (Tylenol Supp) 650 mg Q4H PRN [place] PAIN LEVEL 1-3 OR FEVER Last administered on 09/09/16 17:50; Admin Dose 650 MG; Start 09/06/16 at 22:30 Hydromorphone HCl (Dilaudid) 0.5 mg Q4H PRN IV PAIN LEVEL 7-10 Last administered on 09/12/16 20:47; Admin Dose 0.5 MG; Start 09/06/16 at 22:30 Pantoprazole (Protonix Iv) 40 mg DAILY@06 IV Last administered on 09/13/16 06: 08; Admin Dose 40 MG; Start 09/07/16 at 06:00 Atorvastatin Calcium (Lipitor) 40 mg DAILY@21 PO Last administered on 21:11; Admin Dose 40 MG; Start 09/07/16 at 00:45 Miscellaneous Information 1 ea NOTE XX ; Start 09/07/16 at 00:30 Glucose (Glutose) 15 gm Q15M PRN PO DECREASED GLUCOSE; Start 09/07/16 at 00:30 Glucose (Glutose) 22.5 gm Q15M PRN PO DECREASED GLUCOSE; Start 09/07/16 at 00:30 Dextrose (D50w Syringe) 25 ml Q15M PRN IV DECREASED GLUCOSE; Start 09/07/16 at 00:30 Dextrose (D50w Syringe) 50 ml Q15M PRN IV DECREASED GLUCOSE; Start 09/07/16 at 00:30 Glucagon (Glucagen) 1 mg Q15M PRN IM DECREASED GLUCOSE; Start 09/07/16 at 00:30 Glucose (Glutose) 15 gm Q15M PRN BUCCAL DECREASED GLUCOSE; Start 09/07/16 at 00: 30 Enoxaparin Sodium (Lovenox) 40 mg DAILY SC Last administered on 09/13/16 11:33 ; Admin Dose 40 MG; Start 09/09/16 at 09:00 Mupirocin (Bactroban) 1 applic BID TOP Last administered on 09/13/16 21:13; Admin Dose 1 APPLIC; Start 09/08/16 at 14:00; Stop 09/21/16 at 21:01 Insulin Aspart (Novolog Insulin Pen) NOVOLOG *MILD* ALGORI... Q4 SC Last administered on 09/13/16 21:13; Admin Dose 1 UNIT; Start 09/10/16 at 21:00 Carvedilol (Coreg) 3.125 mg BID PO Last administered on 09/13/16 21:11; Admin Dose 3.125 MG; Start 09/11/16 at 21:00 Furosemide (Lasix) 20 mg DAILY@06 IV Last administered on 09/13/16 06:07; Admin Dose 20 MG; Start 09/13/16 at 06:00 Enalaprilat (Vasotec Iv) 1.25 mg Q8 PRN IV ELEVATED BLOOD PRESSURE; Start 09/12 at 09:30 Valsartan 80 mg 80 mg BID PO Last administered on 09/13/16 21:11; Admin Dose 80 MG; Start 09/12/16 at 12:00 Dextrose (D5W) 1,000 ml @ 50 mls/hr Q20H IV Last administered on 09/13/16 19: 08; Admin Dose 50 MLS/HR; Start 09/13/16 at 10:00 Aspirin (Aspirin) 325 mg DAILY PO ; Start 09/14/16 at 09:00 Ricardo Kingsley DO Sep 13, 2016 23:36
[2016-09-14] VITALS (30 sets, daily range): BP systolic 91–147; BP diastolic 44–128; PULSE 72–160; RESP 21–34
[2016-09-14] MEDS: INSULIN ASPART [NOVOLOG] 3 ML PEN SC SCH ×6 (00:56→21:00)
[2016-09-14] MEDS: FUROSEMIDE 20 MG INJ IV SCH (05:32)
[2016-09-14] MEDS: SPIRONOLACTONE 25 MG TAB NGT SCH ×2 (05:32→17:59)
[2016-09-14] MEDS: PANTOPRAZOLE 40 MG INJ IV SCH (06:22)
[2016-09-14 06:31] LABS: ADD SCAN DIFF NO
[2016-09-14 06:37] LABS: BASOPHILS % 0.4 % (0.0-2.0); EOSINOPHILS # 0.4 10^3/ul (0.0-0.5); EOSINOPHILS % 3.8 % (0.0-7.0); HEMATOCRIT 37.8 % (37.0-47.0); HEMOGLOBIN 11.6 g/dl (12.0-16.0); LYMPHOCYTES # 1.3 10^3/ul (0.8-2.9); LYMPHOCYTES % 13.6 % (15.0-51.0); MEAN CORPUSCULAR HEMOGLOBIN 29.4 pg (29.0-33.0); MEAN CORPUSCULAR HGB CONC 30.7 g/dl (32.0-37.0); MEAN CORPUSCULAR VOLUME 95.7 fl (82.0-101.0); MEAN PLATELET VOLUME 10.8 fl (7.4-10.4); MONOCYTE # 0.9 10^3/ul (0.3-0.9); MONOCYTES % 9.8 % (0.0-11.0); NEUTROPHIL # 6.9 10^3/ul (1.6-7.5); NEUTROPHILS % 72.1 % (39.0-77.0); PLATELET COUNT 311 10^3/UL (140-415); RED BLOOD COUNT 3.95 10^6/ul (4.20-5.40); RED CELL DISTRIBUTION WIDTH 15.1 % (11.5-14.5); WHITE BLOOD COUNT 9.6 10^3/ul (4.8-10.8)
[2016-09-14 07:13] LABS: CHOL/HDL RATIO 3.3 RATIO
[2016-09-14 07:22] LABS: ALBUMIN 4.4 g/dl (3.3-4.9); ALBUMIN/GLOBULIN RATIO 0.89; BILIRUBIN,INDIRECT 0.7 mg/dl (0-1.1); BILIRUBIN,TOTAL 0.7 mg/dl (0.2-1.3); CALCIUM 10.3 mg/dl (8.4-10.2); CREATININE 1.15 mg/dl (0.44-1.00); POTASSIUM 4.1 mmol/L (3.5-5.1); TOTAL PROTEIN 9.3 g/dl (6.1-8.1)
[2016-09-14 07:34] LABS: MAGNESIUM 2.6 mg/dl (1.7-2.5); PHOSPHORUS 2.4 mg/dl (2.5-4.9)
[2016-09-14] MEDS: DEXTROSE 5% 1,000 ML IV SCH ×2 (07:43→15:00)
[2016-09-14] MEDS: ALBUTEROL/IPRATROPIUM (NEB) 3 ML AMP HHN SCH ×2 (08:26→17:17)
[2016-09-14 08:41] LABS: AADO2 Arterial 68.2 mmHg (7.0-24.0); Allen Test ACCEPTAB; Arterial Base Excess -1.9 mmol/L (-3.0-3); Arterial COHb 0.3 % (0.0-3.0); Arterial Fraction of Oxyhgb 97.2 % (93.0-99.0); Arterial HCO3 21.5 mmol/L (22.0-26.0); Arterial MetHb 0.2 % (0.0-1.5); Arterial Total Hemglobin 12.5 g/dl (12.0-18.0); MODE MASK - BIPAP
[2016-09-14] MEDS: VALSARTAN 80 MG TAB PO SCH ×2 (09:12→21:38)
[2016-09-14] MEDS: ASPIRIN 325 MG TAB PO SCH (09:12)
[2016-09-14] MEDS: ENOXAPARIN 40 MG/0.4 ML SYG SC SCH (09:15)
--- NOTE | 2016-09-14 10:11 | CONS ---
Date/Time of Note Date/Time of Note DATE: 09/14/16 TIME: 10:09 Assessment/Plan Assessment/Plan Additional Assessment/Plan Assessment and recommendations; 1. Patient admitted for severe congestive heart failure exacerbation leading to respiratory failure extubated with improving clinical condition. 2. Underlying severe cardiomyopathy. 3. Hypertension. 4. Bump in serum creatinine, improved after decreasing Lasix dosing. Continue current supportive care. Prognosis is guarded. Obtain follow-up chest x-ray. Consultation Date/Type/Reason Admit Date/Time Sep 06, 2016 at 20:38 Initial Consult Date 09/07/16 Type of Consultation: Pulmonary/critical care Referring Provider: MACKENZIE ESCOBAR 24 HR Interval Summary Free Text/Dictation Patient condition is stable. Patient denies any shortness of breath, chest pain , wheezing cough or sputum production. Denies any fever chills. General exam is; elderly woman, awake alert currently in no distress. Currently on high flow oxygen via nasal cannula. Exam/Review of Systems Vital Signs Vitals Vital Signs Date Time Temp Pulse Resp B/P Pulse Ox O2 Delivery O2 Flow Rate FiO2 09/14/16 09:00 84 24 141/64 100 High Flow 09/14/16 08:25 35 09/14/16 08:00 98.3 09/14/16 04:49 3.0 Intake and Output 09/13/16 09/13/16 09/14/16 15:00 23:00 07:00 Intake Total 300 ml 350 ml 350 ml Output Total 800 ml 635 ml 570 ml Balance -500 ml -285 ml -220 ml Exam HEENT exam is; supple neck, positive JVD. No lymphadenopathy. Midline trachea. No thyromegaly. Pharynx is clear. Patient has fair dentition. Pupils are equal and reactive to light bilaterally. Chest examined; diminished but clear vessel. S1-S2 audible, no murmurs. Regular rhythm. There is a pacemaker in the left chest wall. Abdomen examination; soft, nontender. No organomegaly. Nondistended. Bowel sounds audible. Extremity examination; no peripheral edema. Pulses 1+ bilaterally. No clubbing. SUPPORT ASSISTANT examination; no focal deficit. Results Result Diagram: 09/14/16 0600 09/14/16 0600 Results 24 hrs Laboratory Tests Test 09/13/16 11:12 09/13/16 13:14 09/13/16 18:47 09/13/16 21:12 Bedside Glucose 137 130 147 159 Test 09/14/16 00:54 09/14/16 05:30 09/14/16 06:00 09/14/16 08:00 Bedside Glucose 139 158 White Blood Count 9.6 Red Blood Count 3.95 L Hemoglobin 11.6 L Hematocrit 37.8 Mean Corpuscular Volume 95.7 Mean Corpuscular Hemoglobin 29.4 Mean Corpuscular Hemoglobin Concent 30.7 L Red Cell Distribution Width 15.1 H Platelet Count 311 Mean Platelet Volume 10.8 H Neutrophils % 72.1 Lymphocytes % 13.6 L Monocytes % 9.8 Eosinophils % 3.8 Basophils % 0.4 Nucleated Red Blood Cells % 0.0 Neutrophils # 6.9 Lymphocytes # 1.3 Monocytes # 0.9 Eosinophils # 0.4 Basophils # 0.0 Nucleated Red Blood Cells # 0.0 Sodium Level 153 H Potassium Level 4.1 Chloride Level 114 H Carbon Dioxide Level 29 Anion Gap 14 Blood Urea Nitrogen 55 H Creatinine 1.15 H Glucose Level 204 Calcium Level 10.3 H Phosphorus Level 2.4 #L Magnesium Level 2.6 H Total Bilirubin 0.7 Direct Bilirubin 0.00 Indirect Bilirubin 0.7 Aspartate Amino Transf (AST/SGOT) 28 Alanine Aminotransferase (ALT/SGPT) 26 Alkaline Phosphatase 271 H Total Protein 9.3 H Albumin 4.4 Globulin 4.90 H Albumin/Globulin Ratio 0.89 Triglycerides Level 121 Cholesterol Level 115 LDL Cholesterol, Calculated 57 HDL Cholesterol 34 L Cholesterol/HDL Ratio 3.3 Blood Gas Specimen Source Blood arterial Arterial Blood Date Drawn 09/14/2016 7:55:01 AM Arterial Blood pH (Temp corrected) 7.439 Arterial Blood pCO2 (Temp correct) 32.5 L Arterial Blood pO2 (Temp corrected) 107.5 H Arterial Blood HCO3 21.5 L Arterial Blood Base Excess -1.9 Arterial Blood Oxygen Saturation 97.7 Antonio Test ACCEPTAB Arterial Blood Gas Puncture Site Left Radial Arterial Blood Carboxyhemoglobin 0.3 Arterial Blood Methemoglobin 0.2 Blood Gas A-a O2 Differential 68.2 H Oxyhemoglobin Percent 97.2 Total Hemoglobin 12.5 Blood Gas Temperature 37.0 Blood Gas Respiration Rate 16.0 Blood Gas Actual Respiration Rate 22 Blood Gas Modality MASK - BIPAP FiO2 30.0 Blood Gas IPAP/EPAP Ratio 12/4 Blood Gas Notified Whom JLD Blood Gas Notified Time 09/14/2016 8:41:47 AM Test 09/14/16 09:11 Bedside Glucose 159 Medications Medications Current Medications Ondansetron HCl (Zofran Inj) 4 mg Q6H PRN IV NAUSEA AND/OR VOMITING Last administered on 09/11/16 16:49; Admin Dose 4 MG; Start 09/06/16 at 22:30 Acetaminophen (Tylenol Supp) 650 mg Q4H PRN [place] PAIN LEVEL 1-3 OR FEVER Last administered on 09/09/16 17:50; Admin Dose 650 MG; Start 09/06/16 at 22:30 Hydromorphone HCl (Dilaudid) 0.5 mg Q4H PRN [place] PAIN LEVEL 7-10 Last administered on 09/12/16 20:47; Admin Dose 0.5 MG; Start 09/06/16 at 22:30 Pantoprazole (Protonix Iv) 40 mg DAILY@06 IV Last administered on 09/14/16 06: 22; Admin Dose 40 MG; Start 09/07/16 at 06:00 Atorvastatin Calcium (Lipitor) 40 mg DAILY@21 PO Last administered on 21:11; Admin Dose 40 MG; Start 09/07/16 at 00:45 Miscellaneous Information 1 ea NOTE XX ; Start 09/07/16 at 00:30 Glucose (Glutose) 15 gm Q15M PRN PO DECREASED GLUCOSE; Start 09/07/16 at 00:30 Glucose (Glutose) 22.5 gm Q15M PRN PO DECREASED GLUCOSE; Start 09/07/16 at 00:30 Dextrose (D50w Syringe) 25 ml Q15M PRN IV DECREASED GLUCOSE; Start 09/07/16 at 00:30 Dextrose (D50w Syringe) 50 ml Q15M PRN IV DECREASED GLUCOSE; Start 09/07/16 at 00:30 Glucagon (Glucagen) 1 mg Q15M PRN IM DECREASED GLUCOSE; Start 09/07/16 at 00:30 Glucose (Glutose) 15 gm Q15M PRN BUCCAL DECREASED GLUCOSE; Start 09/07/16 at 00: 30 Enoxaparin Sodium (Lovenox) 40 mg DAILY SC Last administered on 09/14/16 09:15 ; Admin Dose 40 MG; Start 09/09/16 at 09:00 Mupirocin (Bactroban) 1 applic BID TOP Last administered on 09/13/16 21:13; Admin Dose 1 APPLIC; Start 09/08/16 at 14:00; Stop 09/21/16 at 21:01 Carvedilol (Coreg) 3.125 mg BID PO Last administered on 09/14/16 09:13; Admin Dose 3.125 MG; Start 09/11/16 at 21:00 Furosemide (Lasix) 20 mg DAILY@06 IV Last administered on 09/14/16 05:32; Admin Dose 20 MG; Start 09/13/16 at 06:00 Enalaprilat (Vasotec Iv) 1.25 mg Q8 PRN IV ELEVATED BLOOD PRESSURE; Start 09/12 at 09:30 Valsartan 80 mg 80 mg BID PO Last administered on 09/14/16 09:12; Admin Dose 80 MG; Start 09/12/16 at 12:00 Dextrose (D5W) 1,000 ml @ 50 mls/hr Q20H IV Last administered on 09/13/16 19: 08; Admin Dose 50 MLS/HR; Start 09/13/16 at 10:00 Aspirin (Aspirin) 325 mg DAILY PO Last administered on 09/14/16 09:12; Admin Dose 325 MG; Start 09/14/16 at 09:00 Diagnostic Test (Pha) (Accu-Chek) 1 ea 02 XX ; Start 09/15/16 at 02:00 JEANIE PINO Sep 14, 2016 10:11
--- NOTE | 2016-09-14 10:34 | PN ---
Date/Time of Note Date/Time of Note DATE: 09/14/16 TIME: 10:14 Assessment/Plan VTE Prophylaxis VTE Prophylaxis Intervention: LMWH Lines/Catheters IV Catheter Type (from Nrs): Peripheral IV Urinary Cath still in place: Yes Reason Cath still needed: other (indicate) (diuresis, mild ILAN) Assessment/Plan Assessment/Plan 60 yo female with: 1. Acute Hypoxemic respiratory failure, likely 2ry to pulmonary edema and CHF, ? triggered by acute cardiac event. On Hi Flow now due to respiratory distress Diuresing and Pulmonary following, on Lasix and Aldactone, lower dose, follow up CXR today Appreciate cardiac recs AICD in place and echo with EF of 25 %. 2. NSTEMI, with Cardiomyopathy EF 25%, s/p AICD. Patient noted to have occasional episodes of NSVT last week. Cardiology, Dr Kingsley following and troponins back to normal. Continue current meds and also ASA, Lovenox Repleting electrolytes prn 3. Congestive Heart Failure, systolic dysfunction acute on chronic with EF of 25 %. Still hypoxemic, follow up CXR Appreciate recs from Dr Kingsley and diuresing with lower dose of Lasix and Aldactone Continue current meds. 4. Cirrhosis, unknown history , so ? etiology. Patient also with Uterine Leiomyoma per records, Ca125 however up to 429.. will need referral to Paramedical Aide Oncology/Oncology. Repeat abdo u/s today to eval for ascites Ammonia OK and liver function OK . CT abdo/perlvis with NO masses just cirrhosis and small fat containing umbilical hernia along with enlarged midline uterus and no adnexal mass evident. Monitor LFTs and liver function, stable so far 5. ILAN vs CKD, renal function remains fairly stable while being diuresed with Lasix 20 mg IV daily+Aldactone 25 mg po bid. Hypernatremia better with D5W @ 50 cc/hr. Creat better or same. Encourage po intake Renal US ? mild right hydronephrosis Moraes in place, continue to monitor. 6. Subacute to chronic CVA, on antiplatelets and carotid Doppler with mild disease. Continue antiplatelets and statins, ASA at 325 Appreciate Neurology eval, repeat CT head stable. PT/ST/OT to continue. 7. Hyperglycemia: On SSI, A1c 7.5. Prophylaxis: GI ppx with Protonix and on ppx dose of Lovenox now. Disposition: On Hi Flow now. Neurology, Pulmonary and Cardiology following. Subjective 24 Hr Interval Summary Free Text/Dictation Patient still hypoxemic and requiring Hi Flow Repeat CT head stable Diuresing Exam/Review of Systems Vital Signs Vitals Vital Signs Date Time Temp Pulse Resp B/P Pulse Ox O2 Delivery O2 Flow Rate FiO2 09/14/16 09:00 84 24 141/64 100 High Flow 09/14/16 08:25 35 09/14/16 08:00 98.3 09/14/16 04:49 3.0 Intake and Output 09/13/16 09/13/16 09/14/16 14:59 22:59 06:59 Intake Total 250 ml 350 ml 400 ml Output Total 800 ml 665 ml 640 ml Balance -550 ml -315 ml -240 ml Exam Constitutional: alert, frail, oriented, other Respiratory: diminished breath sounds (bases b/l ), other (on Hi Flow ) Cardiovascular: nl pulses, regular rate and rhythm Gastrointestinal: ascites (mild ?), mass, soft Genitourinary - Female: uterus (enlarged ) Musculoskeletal: nl extremities to inspection Extremities: normal pulses, other (no edema, clubbing or cyanosis ) Neurological: [employer] SERVICE DIRECT[employer] II-XII intact, focal weakness (LLE ), lethargic, nl mental status, nl speech Results Result Diagram: 09/14/16 0600 09/14/16 0600 Results 24 hrs Laboratory Tests Test 09/13/16 11:12 09/13/16 13:14 09/13/16 18:47 09/13/16 21:12 Bedside Glucose 137 130 147 159 Test 09/14/16 00:54 09/14/16 05:30 09/14/16 06:00 09/14/16 08:00 Bedside Glucose 139 158 White Blood Count 9.6 Red Blood Count 3.95 L Hemoglobin 11.6 L Hematocrit 37.8 Mean Corpuscular Volume 95.7 Mean Corpuscular Hemoglobin 29.4 Mean Corpuscular Hemoglobin Concent 30.7 L Red Cell Distribution Width 15.1 H Platelet Count 311 Mean Platelet Volume 10.8 H Neutrophils % 72.1 Lymphocytes % 13.6 L Monocytes % 9.8 Eosinophils % 3.8 Basophils % 0.4 Nucleated Red Blood Cells % 0.0 Neutrophils # 6.9 Lymphocytes # 1.3 Monocytes # 0.9 Eosinophils # 0.4 Basophils # 0.0 Nucleated Red Blood Cells # 0.0 Sodium Level 153 H Potassium Level 4.1 Chloride Level 114 H Carbon Dioxide Level 29 Anion Gap 14 Blood Urea Nitrogen 55 H Creatinine 1.15 H Glucose Level 204 Calcium Level 10.3 H Phosphorus Level 2.4 #L Magnesium Level 2.6 H Total Bilirubin 0.7 Direct Bilirubin 0.00 Indirect Bilirubin 0.7 Aspartate Amino Transf (AST/SGOT) 28 Alanine Aminotransferase (ALT/SGPT) 26 Alkaline Phosphatase 271 H Total Protein 9.3 H Albumin 4.4 Globulin 4.90 H Albumin/Globulin Ratio 0.89 Triglycerides Level 121 Cholesterol Level 115 LDL Cholesterol, Calculated 57 HDL Cholesterol 34 L Cholesterol/HDL Ratio 3.3 Blood Gas Specimen Source Blood arterial Arterial Blood Date Drawn 09/14/2016 7:55:01 AM Arterial Blood pH (Temp corrected) 7.439 Arterial Blood pCO2 (Temp correct) 32.5 L Arterial Blood pO2 (Temp corrected) 107.5 H Arterial Blood HCO3 21.5 L Arterial Blood Base Excess -1.9 Arterial Blood Oxygen Saturation 97.7 Antonio Test ACCEPTAB Arterial Blood Gas Puncture Site Left Radial Arterial Blood Carboxyhemoglobin 0.3 Arterial Blood Methemoglobin 0.2 Blood Gas A-a O2 Differential 68.2 H Oxyhemoglobin Percent 97.2 Total Hemoglobin 12.5 Blood Gas Temperature 37.0 Blood Gas Respiration Rate 16.0 Blood Gas Actual Respiration Rate 22 Blood Gas Modality MASK - BIPAP FiO2 30.0 Blood Gas IPAP/EPAP Ratio 12 Blood Gas Notified Whom JLD Blood Gas Notified Time 09/14/2016 8:41:47 AM Test 09/14/16 09:11 Bedside Glucose 159 Medications Medications Current Medications Ondansetron HCl (Zofran Inj) 4 mg Q6H PRN IV NAUSEA AND/OR VOMITING Last administered on 09/11/16 16:49; Admin Dose 4 MG; Start 09/06/16 at 22:30 Acetaminophen (Tylenol Supp) 650 mg Q4H PRN OR PAIN LEVEL 1-3 OR FEVER Last administered on 09/09/16 17:50; Admin Dose 650 MG; Start 09/06/16 at 22:30 Hydromorphone HCl (Dilaudid) 0.5 mg Q4H PRN IV PAIN LEVEL 7-10 Last administered on 09/12/16 20:47; Admin Dose 0.5 MG; Start 09/06/16 at 22:30 Pantoprazole (Protonix Iv) 40 mg DAILY@06 IV Last administered on 09/14/16 06: 22; Admin Dose 40 MG; Start 09/07/16 at 06:00 Atorvastatin Calcium (Lipitor) 40 mg DAILY@21 PO Last administered on 21:11; Admin Dose 40 MG; Start 09/07/16 at 00:45 Miscellaneous Information 1 ea NOTE XX ; Start 09/07/16 at 00:30 Glucose (Glutose) 15 gm Q15M PRN PO DECREASED GLUCOSE; Start 09/07/16 at 00:30 Glucose (Glutose) 22.5 gm Q15M PRN PO DECREASED GLUCOSE; Start 09/07/16 at 00:30 Dextrose (D50w Syringe) 25 ml Q15M PRN IV DECREASED GLUCOSE; Start 09/07/16 at 00:30 Dextrose (D50w Syringe) 50 ml Q15M PRN IV DECREASED GLUCOSE; Start 09/07/16 at 00:30 Glucagon (Glucagen) 1 mg Q15M PRN IM DECREASED GLUCOSE; Start 09/07/16 at 00:30 Glucose (Glutose) 15 gm Q15M PRN BUCCAL DECREASED GLUCOSE; Start 09/07/16 at 00: 30 Enoxaparin Sodium (Lovenox) 40 mg DAILY SC Last administered on 09/14/16 09:15 ; Admin Dose 40 MG; Start 09/09/16 at 09:00 Mupirocin (Bactroban) 1 applic BID TOP Last administered on 09/13/16 21:13; Admin Dose 1 APPLIC; Start 09/08/16 at 14:00; Stop 09/21/16 at 21:01 Carvedilol (Coreg) 3.125 mg BID PO Last administered on 09/14/16 09:13; Admin Dose 3.125 MG; Start 09/11/16 at 21:00 Furosemide (Lasix) 20 mg DAILY@06 IV Last administered on 09/14/16 05:32; Admin Dose 20 MG; Start 09/13/16 at 06:00 Enalaprilat (Vasotec Iv) 1.25 mg Q8 PRN IV ELEVATED BLOOD PRESSURE; Start 09/12 at 09:30 Valsartan 80 mg 80 mg BID PO Last administered on 09/14/16 09:12; Admin Dose 80 MG; Start 09/12/16 at 12:00 Dextrose (D5W) 1,000 ml @ 50 mls/hr Q20H IV Last administered on 09/13/16 19: 08; Admin Dose 50 MLS/HR; Start 09/13/16 at 10:00 Aspirin (Aspirin) 325 mg DAILY PO Last administered on 09/14/16 09:12; Admin Dose 325 MG; Start 09/14/16 at 09:00 Diagnostic Test (Pha) (Accu-Chek) 1 02 XX ; Start 09/15/16 at 02:00 Procedures Procedures PROCEDURE: CT Brain without contrast. CLINICAL INDICATION: Neurologic deficit TECHNIQUE: A CT of the brain was performed on multidetector high-resolution CT scanner utilizing axial sections from the skull base through the vertex without contrast. One or more of the following dose reduction techniques were used: Automated exposure control, Adjustment of the mA and/or kV according to patient size, and/or use of iterative reconstruction technique. DOSE: CTDI = 44 mGy and the DLP = 630 mGy-cm. COMPARISON: Head CT yesterday FINDINGS: Cortical hypoattenuation of the right frontal opercular region is unchanged. No acute intracranial hemorrhage, significant mass effect or midline shift. The ridley-white differentiation is otherwise grossly preserved. The ventricles are normal in size for age. Partially opacified sphenoid sinus bilaterally with layering fluid. IMPRESSION: No significant change in appearance of the subacute to chronic right frontal opercular cortical infarct. No acute hemorrhage or significant mass effect. Partially opacified sphenoid sinus bilaterally with layering fluid. RPTAT: AA .Franki Cruz MD, Date Time Electronically viewed and signed by .Franki Cruz MD, MD on 09/13/2016 13:06 .Cherise/ MACKENZIE ESCOBAR Sep 14, 2016 10:25
--- NOTE | 2016-09-14 11:22 | RADRPT ---
PROCEDURE: XR Chest. CLINICAL INDICATION: 6-year-old female with pulmonary edema. TECHNIQUE: Single frontal view of the chest was obtained. COMPARISON: None FINDINGS: The soft tissues are normal a single channel cardiac pacemaker is implanted over the upper left ches t wall. Degenerative osteophytes are noted in the thoracic spine. The heart is enlarged. The card iomediastinal silhouette and hilar structures are normal. The pulmonary vasculature is increase. Th ere are vascular calcifications in the aortic arch. There are bilateral mixed interstitial and alveo lar infiltrates in the lungs with plate-like atelectasis near the upper left heart border. Bilatera l pleural effusions are suspected. IMPRESSION: 1. Congestive heart failure with interstitial pulmonary edema and bilateral pleural effusions. 2. Atherosclerosis of the aortic arch. 3. A single channel cardiac pacemaker over the upper left chest wall. 4. Spondylosis of the thoracic spine. RPTAT:AAJJ Physician Marcelino Date Time Electronically viewed and signed by Physician Marcelino on 09/14/2016 11:22 CHUCKY/
[2016-09-14] MEDS: MUPIROCIN 2% 22 GM OINT TOP SCH ×2 (11:39→21:38)
--- NOTE | 2016-09-14 14:19 | CONS ---
Date/Time of Note Date/Time of Note DATE: 09/14/16 TIME: 14:18 Assessment/Plan Assessment/Plan Additional Assessment/Plan Acute decompensated systolic congestive heart failure Severe cardiomyopathy with ejection fraction 25% Respiratory failure status post extubation Mildly elevated troponin History of hypertension Diabetes History of AICD CVA -Increase dose of beta-enma, adjust Lasix to p.o. Continue Aldactone and ARB as renal function permits. Encourage physical therapy. Continue aspirin and statin therapy Consultation Date/Type/Reason Admit Date/Time Sep 06, 2016 at 20:38 Initial Consult Date 09/07/16 Type of Consultation: cv Referring Provider: MACKENZIE ESCOBAR 24 HR Interval Summary Free Text/Dictation Shortness of breath continues to improve, denies chest pain or dizziness Exam/Review of Systems Vital Signs Vitals Vital Signs Date Time Temp Pulse Resp B/P Pulse Ox O2 Delivery O2 Flow Rate FiO2 09/14/16 14:10 98 35 09/14/16 14:00 91 28 132/71 High Flow 09/14/16 12:00 99.3 09/14/16 04:49 3.0 Intake and Output 09/13/16 09/13/16 09/14/16 15:00 23:00 07:00 Intake Total 300 ml 350 ml 400 ml Output Total 800 ml 635 ml 620 ml Balance -500 ml -285 ml -220 ml Exam No apparent distress Constitutional: alert, oriented Head: normocephalic Neck: supple Respiratory: other (Coarse breath sounds bilaterally, decreased at the bases, no wheezing) Cardiovascular: other (S1-S2 heard), regular rate and rhythm, systolic murmur Gastrointestinal: bowel sounds, non-tender, soft Extremities: edema Results Result Diagram: 09/14/16 0600 09/14/16 0600 Results 24 hrs Laboratory Tests Test 09/13/16 18:47 09/13/16 21:12 09/14/16 00:54 09/14/16 05:30 Bedside Glucose 147 159 139 158 Test 09/14/16 06:00 09/14/16 08:00 09/14/16 09:11 09/14/16 12:54 White Blood Count 9.6 Red Blood Count 3.95 L Hemoglobin 11.6 L Hematocrit 37.8 Mean Corpuscular Volume 95.7 Mean Corpuscular Hemoglobin 29.4 Mean Corpuscular Hemoglobin Concent 30.7 L Red Cell Distribution Width 15.1 H Platelet Count 311 Mean Platelet Volume 10.8 H Neutrophils % 72.1 Lymphocytes % 13.6 L Monocytes % 9.8 Eosinophils % 3.8 Basophils % 0.4 Nucleated Red Blood Cells % 0.0 Neutrophils # 6.9 Lymphocytes # 1.3 Monocytes # 0.9 Eosinophils # 0.4 Basophils # 0.0 Nucleated Red Blood Cells # 0.0 Sodium Level 153 H Potassium Level 4.1 Chloride Level 114 H Carbon Dioxide Level 29 Anion Gap 14 Blood Urea Nitrogen 55 H Creatinine 1.15 H Glucose Level 204 Calcium Level 10.3 H Phosphorus Level 2.4 #L Magnesium Level 2.6 H Total Bilirubin 0.7 Direct Bilirubin 0.00 Indirect Bilirubin 0.7 Aspartate Amino Transf (AST/SGOT) 28 Alanine Aminotransferase (ALT/SGPT) 26 Alkaline Phosphatase 271 H Total Protein 9.3 H Albumin 4.4 Globulin 4.90 H Albumin/Globulin Ratio 0.89 Triglycerides Level 121 Cholesterol Level 115 LDL Cholesterol, Calculated 57 HDL Cholesterol 34 L Cholesterol/HDL Ratio 3.3 Thyroid Stimulating Hormone (TSH) 1.510 Free Thyroxine 1.40 Blood Gas Specimen Source Blood arterial Arterial Blood Date Drawn 09/14/2016 7:55:01 AM Arterial Blood pH (Temp corrected) 7.439 Arterial Blood pCO2 (Temp correct) 32.5 L Arterial Blood pO2 (Temp corrected) 107.5 H Arterial Blood HCO3 21.5 L Arterial Blood Base Excess -1.9 Arterial Blood Oxygen Saturation 97.7 Antonio Test ACCEPTAB Arterial Blood Gas Puncture Site Left Radial Arterial Blood Carboxyhemoglobin 0.3 Arterial Blood Methemoglobin 0.2 Blood Gas A-a O2 Differential 68.2 H Oxyhemoglobin Percent 97.2 Total Hemoglobin 12.5 Blood Gas Temperature 37.0 Blood Gas Respiration Rate 16.0 Blood Gas Actual Respiration Rate 22 Blood Gas Modality MASK - BIPAP FiO2 30.0 Blood Gas IPAP/EPAP Ratio 12 Blood Gas Notified Whom JLD Blood Gas Notified Time 09/14/2016 8:41:47 AM Bedside Glucose 159 136 Medications Medications Current Medications Ondansetron HCl (Zofran Inj) 4 mg Q6H PRN IV NAUSEA AND/OR VOMITING Last administered on 09/11/16t 16:49; Admin Dose 4 MG; Start 09/06/16 at 22:30 Acetaminophen (Tylenol Supp) 650 mg Q4H PRN AR PAIN LEVEL 1-3 OR FEVER Last administered on 09/09/16 17:50; Admin Dose 650 MG; Start 09/06/16 at 22:30 Hydromorphone HCl (Dilaudid) 0.5 mg Q4H PRN IV PAIN LEVEL 7-10 Last administered on 09/12/16 20:47; Admin Dose 0.5 MG; Start 09/06/16 at 22:30 Pantoprazole (Protonix Iv) 40 mg DAILY@06 IV Last administered on 09/14/16 06: 22; Admin Dose 40 MG; Start 09/07/16 at 06:00 Atorvastatin Calcium (Lipitor) 40 mg DAILY@21 PO Last administered on 21:11; Admin Dose 40 MG; Start 09/07/16 at 00:45 Miscellaneous Information 1 ea NOTE XX ; Start 09/07/16 at 00:30 Glucose (Glutose) 15 gm Q15M PRN PO DECREASED GLUCOSE; Start 09/07/16 at 00:30 Glucose (Glutose) 22.5 gm Q15M PRN PO DECREASED GLUCOSE; Start 09/07/16 at 00:30 Dextrose (D50w Syringe) 25 ml Q15M PRN IV DECREASED GLUCOSE; Start 09/07/16 at 00:30 Dextrose (D50w Syringe) 50 ml Q15M PRN IV DECREASED GLUCOSE; Start 09/07/16 at 00:30 Glucagon (Glucagen) 1 mg Q15M PRN IM DECREASED GLUCOSE; Start 09/07/16 at 00:30 Glucose (Glutose) 15 gm Q15M PRN BUCCAL DECREASED GLUCOSE; Start 09/07/16 at 00: 30 Enoxaparin Sodium (Lovenox) 40 mg DAILY SC Last administered on 09/14/16 09:15 ; Admin Dose 40 MG; Start 09/09/16 at 09:00 Mupirocin (Bactroban) 1 applic BID TOP Last administered on 09/14/16 11:39; Admin Dose 1 APPLIC; Start 09/08/16 at 14:00; Stop 09/21/16 at 21:01 Carvedilol (Coreg) 3.125 mg BID PO Last administered on 09/14/16 09:13; Admin Dose 3.125 MG; Start 09/11/16 at 21:00 Furosemide (Lasix) 20 mg DAILY@06 IV Last administered on 09/14/16 05:32; Admin Dose 20 MG; Start 09/13/16 at 06:00 Enalaprilat (Vasotec Iv) 1.25 mg Q8 PRN IV ELEVATED BLOOD PRESSURE; Start 09/12 at 09:30 Valsartan 80 mg 80 mg BID PO Last administered on 09/14/16 09:12; Admin Dose 80 MG; Start 09/12/16 at 12:00 Dextrose (D5W) 1,000 ml @ 50 mls/hr Q20H IV Last administered on 09/13/16 19: 08; Admin Dose 50 MLS/HR; Start 09/13/16 at 10:00 Aspirin (Aspirin) 325 mg DAILY PO Last administered on 09/14/16 09:12; Admin Dose 325 MG; Start 09/14/16 at 09:00 Diagnostic Test (Pha) (Accu-Chek) 1 ea 02 XX ; Start 09/15/16 at 02:00 Ricardo Kingsley DO Sep 14, 2016 14:19
--- NOTE | 2016-09-14 14:21 | RADRPT ---
PROCEDURE: US Abdomen limited . CLINICAL INDICATION: Ascites TECHNIQUE: Multiple real-time images were acquired of the patient's abdomen utilizing a high resol ution transducer. COMPARISON: None FINDINGS: There is no evidence of ascites. RPTAT: AA IMPRESSION: No evidence of ascites. .Ford Aquino MD, Date Time Electronically viewed and signed by .Ford Aquino MD, on 09/14/2016 14:20 .S/
--- NOTE | 2016-09-14 15:15 | RADRPT ---
PROCEDURE: XR Chest. CLINICAL INDICATION: CHF with pulmonary edema. TECHNIQUE: Single frontal view of the chest was obtained. COMPARISON: Chest x-ray 09/14/2016. 06:14 a.m. FINDINGS: The soft tissues are generous. A single channel cardiac pacemaker is implanted over the upper left chest wall with electrode the tip projecting at the level of the right ventricle.. There are degene rative osteophytes in the thoracic spine. The heart is enlarged. The cardiomediastinal silhouette and hilar structures are normal. The pulmonary vasculature is equilibrated. There is a left-sided a evelia. There are perihilar interstitial and more confluent basilar infiltrates. Small pleural effusi ons are suspected. There is a plate-like density near the left heart border which is unchanged. IMPRESSION: 1. Cardiomegaly with interstitial pulmonary edema secondary to CHF which has improved slightly as co mpared to 09/14/2016 at 06:14 a.m. 2. Atherosclerosis of the aortic arch. 3. Single channel cardiac pacemaker over the left chest wall. 4. Spondylosis of the thoracic spine. RPTAT:AAJJ Physician Marcelino Date Time Electronically viewed and signed by Physician Marcelino on 09/14/2016 15:14 /
[2016-09-14] MEDS ORDERED: FUROSEMIDE 20 MG INJ IV ONE (16:00)
--- NOTE | 2016-09-14 17:47 | CONS ---
Date/Time of Note Date/Time of Note DATE: 09/14/16 TIME: 17:42 Consult Date/Type/Reason Admit Date/Time Sep 06, 2016 at 20:38 Initial Consult Date 09/13/16 Type of Consultation: Neurology Reason for Consultation rule out new CVA Ordering Provider: MACKENZIE ESCOBAR Subjective no further neurologic issues remains stable repeat Head CT shows no change remains in ICU Objective Vital Signs Date Time Temp Pulse Resp B/P Pulse Ox O2 Delivery O2 Flow Rate FiO2 09/14/16 17:21 24 09/14/16 17:20 92 40 09/14/16 16:00 101 09/14/16 14:00 132/71 High Flow 09/14/16 12:00 99.3 09/14/16 04:49 3.0 Intake and Output 09/13/16 09/13/16 09/14/16 14:59 22:59 06:59 Intake Total 250 ml 350 ml 400 ml Output Total 800 ml 665 ml 640 ml Balance -550 ml -315 ml -240 ml Exam awake and alert oriented to self, 2017, hospital [facility] in[facility]ive some difficulty with following commands CN: SAMANTA, poor acuity in right eye baseline, EOMI no nystagmus left facial asymmetry palate upgoing uvula midline voice hypophonic Motor: left arm pronates, mild drift, right arm intact strength left leg can move in plane of the bed c/o pain, right leg appears externally rotated with less strength than the left can wiggle toes but difficulty moving side to side Sensory intact Coordination poor cooperative more ataxia appreciated on left FTN than right Reflexes 1+ toes are downgoing Results/Medications Result Diagram: 09/14/16 0600 09/14/16 0600 Results 24 hrs Laboratory Tests Test 09/13/16 18:47 09/13/16 21:12 09/14/16 00:54 09/14/16 05:30 Bedside Glucose 147 159 139 158 Test 09/14/16 06:00 09/14/16 08:00 09/14/16 09:11 09/14/16 12:54 White Blood Count 9.6 Red Blood Count 3.95 L Hemoglobin 11.6 L Hematocrit 37.8 Mean Corpuscular Volume 95.7 Mean Corpuscular Hemoglobin 29.4 Mean Corpuscular Hemoglobin Concent 30.7 L Red Cell Distribution Width 15.1 H Platelet Count 311 Mean Platelet Volume 10.8 H Neutrophils % 72.1 Lymphocytes % 13.6 L Monocytes % 9.8 Eosinophils % 3.8 Basophils % 0.4 Nucleated Red Blood Cells % 0.0 Neutrophils # 6.9 Lymphocytes # 1.3 Monocytes # 0.9 Eosinophils # 0.4 Basophils # 0.0 Nucleated Red Blood Cells # 0.0 Sodium Level 153 H Potassium Level 4.1 Chloride Level 114 H Carbon Dioxide Level 29 Anion Gap 14 Blood Urea Nitrogen 55 H Creatinine 1.15 H Glucose Level 204 Calcium Level 10.3 H Phosphorus Level 2.4 #L Magnesium Level 2.6 H Total Bilirubin 0.7 Direct Bilirubin 0.00 Indirect Bilirubin 0.7 Aspartate Amino Transf (AST/SGOT) 28 Alanine Aminotransferase (ALT/SGPT) 26 Alkaline Phosphatase 271 H Total Protein 9.3 H Albumin 4.4 Globulin 4.90 H Albumin/Globulin Ratio 0.89 Triglycerides Level 121 Cholesterol Level 115 LDL Cholesterol, Calculated 57 HDL Cholesterol 34 L Cholesterol/HDL Ratio 3.3 Thyroid Stimulating Hormone (TSH) 1.510 Free Thyroxine 1.40 Blood Gas Specimen Source Blood arterial Arterial Blood Date Drawn 09/14/2016 7:55:01 AM Arterial Blood pH (Temp corrected) 7.439 Arterial Blood pCO2 (Temp correct) 32.5 L Arterial Blood pO2 (Temp corrected) 107.5 H Arterial Blood HCO3 21.5 L Arterial Blood Base Excess -1.9 Arterial Blood Oxygen Saturation 97.7 Antonio Test ACCEPTAB Arterial Blood Gas Puncture Site Left Radial Arterial Blood Carboxyhemoglobin 0.3 Arterial Blood Methemoglobin 0.2 Blood Gas A-a O2 Differential 68.2 H Oxyhemoglobin Percent 97.2 Total Hemoglobin 12.5 Blood Gas Temperature 37.0 Blood Gas Respiration Rate 16.0 Blood Gas Actual Respiration Rate 22 Blood Gas Modality MASK - BIPAP FiO2 30.0 Blood Gas IPAP/EPAP Ratio 03/05 Blood Gas Notified Whom JLD Blood Gas Notified Time 09/14/2016 8:41:47 AM Bedside Glucose 159 136 Medications Current Medications Ondansetron HCl (Zofran Inj) 4 mg Q6H PRN IV NAUSEA AND/OR VOMITING Last administered on 09/11/16t 16:49; Admin Dose 4 MG; Start 09/06/16 at 22:30 Acetaminophen (Tylenol Supp) 650 mg Q4H PRN [place] PAIN LEVEL 1-3 OR FEVER Last administered on 09/09/16 17:50; Admin Dose 650 MG; Start 09/06/16 at 22:30 Hydromorphone HCl (Dilaudid) 0.5 mg Q4H PRN IV PAIN LEVEL 7-10 Last administered on 09/12/16 20:47; Admin Dose 0.5 MG; Start 09/06/16 at 22:30 Pantoprazole (Protonix Iv) 40 mg DAILY@06 IV Last administered on 09/14/16 06: 22; Admin Dose 40 MG; Start 09/07/16 at 06:00 Atorvastatin Calcium (Lipitor) 40 mg DAILY@21 PO Last administered on 21:11; Admin Dose 40 MG; Start 09/07/16 at 00:45 Miscellaneous Information 1 ea NOTE XX ; Start 09/07/16 at 00:30 Glucose (Glutose) 15 gm Q15M PRN PO DECREASED GLUCOSE; Start 09/07/16 at 00:30 Glucose (Glutose) 22.5 gm Q15M PRN PO DECREASED GLUCOSE; Start 09/07/16 at 00:30 Dextrose (D50w Syringe) 25 ml Q15M PRN IV DECREASED GLUCOSE; Start 09/07/16 at 00:30 Dextrose (D50w Syringe) 50 ml Q15M PRN IV DECREASED GLUCOSE; Start 09/07/16 at 00:30 Glucagon (Glucagen) 1 mg Q15M PRN IM DECREASED GLUCOSE; Start 09/07/16 at 00:30 Glucose (Glutose) 15 gm Q15M PRN BUCCAL DECREASED GLUCOSE; Start 09/07/16 at 00: 30 Enoxaparin Sodium (Lovenox) 40 mg DAILY SC Last administered on 09/14/16 09:15 ; Admin Dose 40 MG; Start 09/09/16 at 09:00 Mupirocin (Bactroban) 1 applic BID TOP Last administered on 09/14/16 11:39; Admin Dose 1 APPLIC; Start 09/08/16 at 14:00; Stop 09/21/16 at 21:01 Carvedilol (Coreg) 3.125 mg BID PO Last administered on 09/14/16 09:13; Admin Dose 3.125 MG; Start 09/11/16 at 21:00 Enalaprilat (Vasotec Iv) 1.25 mg Q8 PRN IV ELEVATED BLOOD PRESSURE; Start 09/12 at 09:30 Valsartan 80 mg 80 mg BID PO Last administered on 09/14/16 09:12; Admin Dose 80 MG; Start 09/12/16 at 12:00 Dextrose (D5W) 1,000 ml @ 50 mls/hr Q20H IV Last administered on 09/13/16 19: 08; Admin Dose 50 MLS/HR; Start 09/13/16 at 10:00 Aspirin (Aspirin) 325 mg DAILY PO Last administered on 09/14/16 09:12; Admin Dose 325 MG; Start 09/14/16 at 09:00 Diagnostic Test (Pha) (Accu-Chek) 1 ea 02 XX ; Start 09/15/16 at 02:00 Furosemide (Lasix) 40 mg DAILY PO ; Start 09/15/16 at 09:00 Assessment/Plan Chief Complaint/Hosp Course 60 yo female with HTN, DM with decompensated heart failure EF 25% with ICD admitted with pulmonary edema, NSTEMI, brain imaging suggestive of subacute appearing right frontal operculum infarct. Exam consistent with some mild left sided face and arm weakness with right leg weakness. Recommendations: Repeat Head CT shows no change maintain normotensive blood pressure increased aspirin to 325 mg daily HBA1C 7.5% adjust insulin for target dosing less than 7.0% continue statin, LDL is at goal < 70 DVT ppx PT/OT/Speech evaluation continue to optimize risk factors, may follow up w neurology as outpatient Problems: ADAM BUTT MD Sep 14, 2016 17:47
[2016-09-14] MEDS ORDERED: ACETAMINOPHEN 325 MG TAB PO PRN (18:00)
[2016-09-14] MEDS: ATORVASTATIN 40 MG TAB PO SCH (21:38)
[2016-09-15] VITALS (32 sets, daily range): BP systolic 104–154; BP diastolic 34–96; PULSE 71–93; RESP 18–32
[2016-09-15] MEDS: ALBUTEROL/IPRATROPIUM (NEB) 3 ML AMP HHN SCH ×4 (00:15→23:24)
[2016-09-15] MEDS: ACCU-CHEK XX SCH (02:00)
[2016-09-15] MEDS: PANTOPRAZOLE 40 MG INJ IV SCH (05:22)
[2016-09-15] MEDS: SPIRONOLACTONE 25 MG TAB NGT SCH ×2 (05:22→17:41)
[2016-09-15 07:13] LABS: ADD SCAN DIFF NO
[2016-09-15 07:18] LABS: BASOPHIL # 0.1 10^3/ul (0.0-0.1); BASOPHILS % 0.9 % (0.0-2.0); EOSINOPHILS # 0.4 10^3/ul (0.0-0.5); HEMATOCRIT 35.4 % (37.0-47.0); HEMOGLOBIN 10.9 g/dl (12.0-16.0); LYMPHOCYTES # 1.2 10^3/ul (0.8-2.9); LYMPHOCYTES % 15.1 % (15.0-51.0); MEAN CORPUSCULAR HEMOGLOBIN 28.8 pg (29.0-33.0); MEAN CORPUSCULAR HGB CONC 30.8 g/dl (32.0-37.0); MEAN CORPUSCULAR VOLUME 93.4 fl (82.0-101.0); MEAN PLATELET VOLUME 10.8 fl (7.4-10.4); MONOCYTE # 0.9 10^3/ul (0.3-0.9); MONOCYTES % 10.9 % (0.0-11.0); NEUTROPHIL # 5.6 10^3/ul (1.6-7.5); NEUTROPHILS % 67.7 % (39.0-77.0); PLATELET COUNT 338 10^3/UL (140-415); RED BLOOD COUNT 3.79 10^6/ul (4.20-5.40); RED CELL DISTRIBUTION WIDTH 14.9 % (11.5-14.5); WHITE BLOOD COUNT 8.2 10^3/ul (4.8-10.8)
[2016-09-15 07:38] LABS: INR 1.36; PROTIME 16.8 Sec (12.2-14.2); PT RATIO 1.3
[2016-09-15 07:40] LABS: PARTIAL THROMBOPLASTIN TIME 35.9 Sec (25.0-35.0)
[2016-09-15 07:46] LABS: MAGNESIUM 2.1 mg/dl (1.7-2.5); PHOSPHORUS 3.3 mg/dl (2.5-4.9)
[2016-09-15 08:10] LABS: ALBUMIN 4.1 g/dl (3.3-4.9); ALBUMIN/GLOBULIN RATIO 0.8; BILIRUBIN,INDIRECT 0.7 mg/dl (0-1.1); BILIRUBIN,TOTAL 0.7 mg/dl (0.2-1.3); CALCIUM 10.2 mg/dl (8.4-10.2); CREATININE 1.07 mg/dl (0.44-1.00); POTASSIUM 3.6 mmol/L (3.5-5.1); TOTAL PROTEIN 9.2 g/dl (6.1-8.1)
[2016-09-15] MEDS: ASPIRIN 325 MG TAB PO SCH (08:14)
[2016-09-15] MEDS: VALSARTAN 80 MG TAB PO SCH ×2 (08:14→21:06)
[2016-09-15] MEDS: MUPIROCIN 2% 22 GM OINT TOP SCH ×2 (08:15→21:07)
[2016-09-15] MEDS: INSULIN ASPART [NOVOLOG] 3 ML PEN SC SCH ×4 (08:16→21:00)
[2016-09-15] MEDS: ENOXAPARIN 40 MG/0.4 ML SYG SC SCH (08:16)
[2016-09-15 08:22] LABS: AADO2 Arterial 179.9 mmHg (7.0-24.0); Allen Test ACCEPTAB; Arterial Base Excess 3.4 mmol/L (-3.0-3); Arterial COHb 0.5 % (0.0-3.0); Arterial Fraction of Oxyhgb 90.6 % (93.0-99.0); Arterial HCO3 27.1 mmol/L (22.0-26.0); Arterial MetHb 0.2 % (0.0-1.5); Arterial Total Hemglobin 12.5 g/dl (12.0-18.0); MODE HFNC
[2016-09-15] MEDS ORDERED: FUROSEMIDE 40 MG TAB PO SCH (09:00)
--- NOTE | 2016-09-15 10:03 | PN ---
Date/Time of Note Date/Time of Note DATE: 09/15/16 TIME: 09:44 Assessment/Plan VTE Prophylaxis VTE Prophylaxis Intervention: LMWH Lines/Catheters IV Catheter Type (from Nrsg): Peripheral IV Urinary Cath still in place: Yes Reason Cath still needed: other (indicate) (ILAN and monitor UOP ) Assessment/Plan Assessment/Plan 60 yo female with: 1. Acute Hypoxemic respiratory failure, likely 2ry to pulmonary edema and CHF, ? triggered by acute cardiac event. On Hi Flow now due to respiratory distress Diuresing and Pulmonary following, on Aldactone, lower dose, follow up CXR today Appreciate cardiac recs AICD in place and echo with EF of 25 %. 2. NSTEMI, with Cardiomyopathy EF 25%, s/p AICD. Patient noted to have occasional episodes of NSVT last week. Cardiology, Dr Kingsley following and troponins back to normal. Continue current meds and also ASA, Lovenox Repleting electrolytes prn 3. Congestive Heart Failure, systolic dysfunction acute on chronic with EF of 25 %. Still hypoxemic requiring Hi flow CXR still with pulmonary edema but diuresis limited by Hypernatremia, continue Aldactone for now, may need to resume Lasix Appreciate recs from Dr Kingsley and diuresing with lower dose of Lasix and Aldactone Continue current meds. 4. Cirrhosis, unknown history , so ? etiology. Patient also with Uterine Leiomyoma per records, Ca125 however up to 429.. will need referral to [facility]. No ascites on abdo u/s today. Ammonia OK and liver function OK . CT abdo/perlvis with NO masses just cirrhosis and small fat containing umbilical hernia along with enlarged midline uterus and no adnexal mass evident. Monitor LFTs and liver function, stable so far 5. ILAN vs CKD, renal function remains fairly stable while being diuresed with Aldactone 25 mg po bid today, holding Lasix . Hypernatremia slowly improving with D5W @ 50 cc/hr and backing down on diuretics. Creat better. Encourage po intake Renal US ? mild right hydronephrosis Moraes in place, continue to monitor. 6. Subacute to chronic CVA, on antiplatelets and carotid Doppler with mild disease. Continue antiplatelets and statins, ASA at 325 Appreciate Neurology eval, repeat CT head stable. PT/ST/OT to continue. 7. Hyperglycemia: On SSI, A1c 7.5. Prophylaxis: GI ppx with Protonix and on ppx dose of Lovenox now. Disposition: On Hi Flow now. Still in ICU today, discussed with pulmonary. Neurology, Pulmonary and Cardiology following. Full code Subjective 24 Hr Interval Summary Free Text/Dictation Patient still with frail respiratory status, on Hi Flow this AM No ascites on Abdo US but still with pulmonary edema and on diuretics Hemodynamically stable currently Exam/Review of Systems Vital Signs Vitals Vital Signs Date Time Temp Pulse Resp B/P Pulse Ox O2 Delivery O2 Flow Rate FiO2 09/15/16 09:20 100 40 09/15/16 09:14 90 29 09/15/16 08:00 98.8 154/87 09/15/16 07:00 BIPAP 09/14/16 04:49 3.0 Intake and Output 09/14/16 09/14/16 09/15/16 15:00 23:00 07:00 Intake Total 880 ml 680 ml 150 ml Output Total 425 ml 255 ml 1050 ml Balance 455 ml 425 ml -900 ml Exam Constitutional: alert, frail, oriented, other (seems more comfortable ), well developed Respiratory: diminished breath sounds (bilateral LLL to bases ), normal air movement Cardiovascular: nl pulses, regular rate and rhythm Gastrointestinal: distended (with known large uterus and leiomyoma ), other ( NO ascites ), soft Musculoskeletal: nl extremities to inspection Extremities: normal pulses, other (no edema, clubbing or cyanosis ) Neurological: LONE LEAD LINEMAN II-XII intact, lethargic, nl mental status, other (improved speech but still dyspneic ) Results Result Diagram: 09/15/16 0555 09/15/16 0555 Results 24 hrs Laboratory Tests Test 09/14/16 12:54 09/14/16 17:56 09/14/16 21:41 09/15/16 05:55 Bedside Glucose 136 146 159 White Blood Count 8.2 Red Blood Count 3.79 L Hemoglobin 10.9 L Hematocrit 35.4 L Mean Corpuscular Volume 93.4 Mean Corpuscular Hemoglobin 28.8 L Mean Corpuscular Hemoglobin Concent 30.8 L Red Cell Distribution Width 14.9 H Platelet Count 338 Mean Platelet Volume 10.8 H Neutrophils % 67.7 Lymphocytes % 15.1 Monocytes % 10.9 Eosinophils % 5.0 Basophils % 0.9 Nucleated Red Blood Cells % 0.0 Neutrophils # 5.6 Lymphocytes # 1.2 Monocytes # 0.9 Eosinophils # 0.4 Basophils # 0.1 Nucleated Red Blood Cells # 0.0 Prothrombin Time 16.8 H Prothrombin Time Ratio 1.3 INR International Normalized Ratio 1.36 Activated Partial Thromboplast Time 35.9 H Sodium Level 152 H Potassium Level 3.6 Chloride Level 111 H Carbon Dioxide Level 28 Anion Gap 17 H Blood Urea Nitrogen 42 #H Creatinine 1.07 H Glucose Level 166 Calcium Level 10.2 Phosphorus Level 3.3 Magnesium Level 2.1 Total Bilirubin 0.7 Direct Bilirubin 0.00 Indirect Bilirubin 0.7 Aspartate Amino Transf (AST/SGOT) 33 Alanine Aminotransferase (ALT/SGPT) 20 Alkaline Phosphatase 267 H Total Protein 9.2 H Albumin 4.1 Globulin 5.10 H Albumin/Globulin Ratio 0.80 Test 09/15/16 08:00 09/15/16 08:13 Blood Gas Specimen Source Blood arterial Arterial Blood Date Drawn 09/15/2016 8:05:07 AM Arterial Blood pH (Temp corrected) 7.471 H Arterial Blood pCO2 (Temp correct) 38.0 Arterial Blood pO2 (Temp corrected) 61.6 L Arterial Blood HCO3 27.1 H Arterial Blood Base Excess 3.4 H Arterial Blood Oxygen Saturation 91.2 L Antonio Test ACCEPTAB Arterial Blood Gas Puncture Site Left Radial Arterial Blood Carboxyhemoglobin 0.5 Arterial Blood Methemoglobin 0.2 Blood Gas A-a O2 Differential 179.9 H Oxyhemoglobin Percent 90.6 L Total Hemoglobin 12.5 Blood Gas Temperature 37.0 Blood Gas Modality HFNC FiO2 40.0 Blood Gas Notified Whom TM Blood Gas Notified Time 09/15/2016 8:22:09 AM Bedside Glucose 154 Medications Medications Current Medications Ondansetron HCl (Zofran Inj) 4 mg Q6H PRN IV NAUSEA AND/OR VOMITING Last administered on 09/11/16 16:49; Admin Dose 4 MG; Start 09/06/16 at 22:30 Hydromorphone HCl (Dilaudid) 0.5 mg Q4H PRN IV PAIN LEVEL 7-10 Last administered on 09/12/16 20:47; Admin Dose 0.5 MG; Start 09/06/16 at 22:30 Pantoprazole (Protonix Iv) 40 mg DAILY@06 IV Last administered on 09/15/16 05: 22; Admin Dose 40 MG; Start 09/07/16 at 06:00 Atorvastatin Calcium (Lipitor) 40 mg DAILY@21 PO Last administered on 21:38; Admin Dose 40 MG; Start 09/07/16 at 00:45 Miscellaneous Information 1 ea NOTE XX ; Start 09/07/16 at 00:30 Glucose (Glutose) 15 gm Q15M PRN PO DECREASED GLUCOSE; Start 09/07/16 at 00:30 Glucose (Glutose) 22.5 gm Q15M PRN PO DECREASED GLUCOSE; Start 09/07/16 at 00:30 Dextrose (D50w Syringe) 25 ml Q15M PRN IV DECREASED GLUCOSE; Start 09/07/16 at 00:30 Dextrose (D50w Syringe) 50 ml Q15M PRN IV DECREASED GLUCOSE; Start 09/07/16 at 00:30 Glucagon (Glucagen) 1 mg Q15M PRN IM DECREASED GLUCOSE; Start 09/07/16 at 00:30 Glucose (Glutose) 15 gm Q15M PRN BUCCAL DECREASED GLUCOSE; Start 09/07/16 at 00: 30 Enoxaparin Sodium (Lovenox) 40 mg DAILY SC Last administered on 09/15/16 08:16 ; Admin Dose 40 MG; Start 09/09/16 at 09:00 Mupirocin (Bactroban) 1 applic BID TOP Last administered on 09/15/16 08:15; Admin Dose 1 APPLIC; Start 09/08/16 at 14:00; Stop 09/21/16 at 21:01 Carvedilol (Coreg) 3.125 mg BID PO Last administered on 09/15/16 08:15; Admin Dose 3.125 MG; Start 09/11/16 at 21:00 Enalaprilat (Vasotec Iv) 1.25 mg Q8 PRN IV ELEVATED BLOOD PRESSURE; Start 09/12 at 09:30 Valsartan 80 mg 80 mg BID PO Last administered on 09/15/16 08:14; Admin Dose 80 MG; Start 09/12/16 at 12:00 Dextrose (D5W) 1,000 ml @ 50 mls/hr Q20H IV Last administered on 09/14/16 15: 00; Admin Dose 50 MLS/HR; Start 09/13/16 at 10:00 Aspirin (Aspirin) 325 mg DAILY PO Last administered on 09/15/16 08:14; Admin Dose 325 MG; Start 09/14/16 at 09:00 Diagnostic Test (Pha) (Accu-Chek) 1 ea 02 XX ; Start 09/15/16 at 02:00 Furosemide (Lasix) 40 mg DAILY PO Last administered on 09/15/16 08:14; Admin Dose 40 MG; Start 09/15/16 at 09:00 Acetaminophen (Tylenol Tab) 650 mg Q4H PRN PO PAIN AND OR ELEVATED TEMP; Start 09/14/16 at 18:00 MACKENZIE ESCOBAR Sep 15, 2016 09:57
--- NOTE | 2016-09-15 10:37 | RADRPT ---
PROCEDURE: XR Chest 1 view. CLINICAL INDICATION: Shortness of breath TECHNIQUE: AP views of the chest was obtained. COMPARISON: Yesterday FINDINGS: The heart is large. Calcified atherosclerosis is noted in the aorta. Left-sided AICD has its lead o annie the heart and appears stable. Central pulmonary vascular congestion and interstitial prominence in both lungs is unchanged. Patchy atelectasis versus mild infiltrates in the bilateral lower lobes are unchanged. The osseous structures are unchanged. IMPRESSION: Cardiomegaly with calcified atherosclerosis in the aorta. Stable central pulmonary vascular congestion and interstitial prominence in both lungs. Stable patchy atelectasis versus mild infiltrates in the bilateral lower lobes. RPTAT: AA .Koffi Kruse MD, Date Time Electronically viewed and signed by .Koffi Kruse MD, on 09/15/2016 10:36 .P/
--- NOTE | 2016-09-15 13:24 | CONS ---
Date/Time of Note Date/Time of Note DATE: 09/15/16 TIME: 13:22 Assessment/Plan Assessment/Plan Additional Assessment/Plan Acute decompensated systolic congestive heart failure Severe cardiomyopathy with ejection fraction 25% Respiratory failure status post extubation Mildly elevated troponin History of hypertension Diabetes History of AICD CVA -Continue beta-enma, Continue Aldactone, Lasix and ARB as renal function permits and blood pressure permits. Encourage physical therapy. Continue aspirin and statin therapy. Consultation Date/Type/Reason Admit Date/Time Sep 06, 2016 at 20:38 Initial Consult Date 09/07/16 Type of Consultation: cv Referring Provider: MACKENZIE ESCOBAR 24 HR Interval Summary Free Text/Dictation Patient seen and examined. Exam/Review of Systems Vital Signs Vitals Vital Signs Date Time Temp Pulse Resp B/P Pulse Ox O2 Delivery O2 Flow Rate FiO2 09/15/16 11:00 78 18 116/76 94 High Flow 09/15/16 09:20 40 09/15/16 08:00 98.8 09/14/16 04:49 3.0 Intake and Output 09/14/16 09/14/16 09/15/16 15:00 23:00 07:00 Intake Total 880 ml 680 ml 150 ml Output Total 425 ml 255 ml 1050 ml Balance 455 ml 425 ml -900 ml Exam Sleeping but arousable, follows commands, no apparent distress Head: normocephalic Respiratory: other (Coarse breath sounds bilaterally, no wheezing) Cardiovascular: other (S1-S2 heard), regular rate and rhythm Gastrointestinal: bowel sounds, non-tender, soft Extremities: edema Results Result Diagram: 09/15/16 0555 09/15/16 0555 Results 24 hrs Laboratory Tests Test 09/14/16 17:56 09/14/16 21:41 09/15/16 05:55 09/15/16 08:00 Bedside Glucose 146 159 White Blood Count 8.2 Red Blood Count 3.79 L Hemoglobin 10.9 L Hematocrit 35.4 L Mean Corpuscular Volume 93.4 Mean Corpuscular Hemoglobin 28.8 L Mean Corpuscular Hemoglobin Concent 30.8 L Red Cell Distribution Width 14.9 H Platelet Count 338 Mean Platelet Volume 10.8 H Neutrophils % 67.7 Lymphocytes % 15.1 Monocytes % 10.9 Eosinophils % 5.0 Basophils % 0.9 Nucleated Red Blood Cells % 0.0 Neutrophils # 5.6 Lymphocytes # 1.2 Monocytes # 0.9 Eosinophils # 0.4 Basophils # 0.1 Nucleated Red Blood Cells # 0.0 Prothrombin Time 16.8 H Prothrombin Time Ratio 1.3 INR International Normalized Ratio 1.36 Activated Partial Thromboplast Time 35.9 H Sodium Level 152 H Potassium Level 3.6 Chloride Level 111 H Carbon Dioxide Level 28 Anion Gap 17 H Blood Urea Nitrogen 42 #H Creatinine 1.07 H Glucose Level 166 Calcium Level 10.2 Phosphorus Level 3.3 Magnesium Level 2.1 Total Bilirubin 0.7 Direct Bilirubin 0.00 Indirect Bilirubin 0.7 Aspartate Amino Transf (AST/SGOT) 33 Alanine Aminotransferase (ALT/SGPT) 20 Alkaline Phosphatase 267 H Total Protein 9.2 H Albumin 4.1 Globulin 5.10 H Albumin/Globulin Ratio 0.80 Blood Gas Specimen Source Blood arterial Arterial Blood Date Drawn 09/15/2016 8:05:07 AM Arterial Blood pH (Temp corrected) 7.471 H Arterial Blood pCO2 (Temp correct) 38.0 Arterial Blood pO2 (Temp corrected) 61.6 L Arterial Blood HCO3 27.1 H Arterial Blood Base Excess 3.4 H Arterial Blood Oxygen Saturation 91.2 L Antonio Test ACCEPTAB Arterial Blood Gas Puncture Site Left Radial Arterial Blood Carboxyhemoglobin 0.5 Arterial Blood Methemoglobin 0.2 Blood Gas A-a O2 Differential 179.9 H Oxyhemoglobin Percent 90.6 L Total Hemoglobin 12.5 Blood Gas Temperature 37.0 Blood Gas Modality HFNC FiO2 40.0 Blood Gas Notified Whom TM Blood Gas Notified Time 09/15/2016 8:22:09 AM Test 09/15/16 08:13 09/15/16 12:38 Bedside Glucose 154 142 Medications Medications Current Medications Ondansetron HCl (Zofran Inj) 4 mg Q6H PRN IV NAUSEA AND/OR VOMITING Last administered on 09/11/16 16:49; Admin Dose 4 MG; Start 09/06/16 at 22:30 Hydromorphone HCl (Dilaudid) 0.5 mg Q4H PRN IV PAIN LEVEL 7-10 Last administered on 09/12/16 20:47; Admin Dose 0.5 MG; Start 09/06/16 at 22:30 Pantoprazole (Protonix Iv) 40 mg DAILY@06 IV Last administered on 09/15/16 05: 22; Admin Dose 40 MG; Start 09/07/16 at 06:00 Atorvastatin Calcium (Lipitor) 40 mg DAILY@21 PO Last administered on 21:38; Admin Dose 40 MG; Start 09/07/16 at 00:45 Miscellaneous Information 1 ea NOTE XX ; Start 09/07/16 at 00:30 Glucose (Glutose) 15 gm Q15M PRN PO DECREASED GLUCOSE; Start 09/07/16 at 00:30 Glucose (Glutose) 22.5 gm Q15M PRN PO DECREASED GLUCOSE; Start 09/07/16 at 00:30 Dextrose (D50w Syringe) 25 ml Q15M PRN IV DECREASED GLUCOSE; Start 09/07/16 at 00:30 Dextrose (D50w Syringe) 50 ml Q15M PRN IV DECREASED GLUCOSE; Start 09/07/16 at 00:30 Glucagon (Glucagen) 1 mg Q15M PRN IM DECREASED GLUCOSE; Start 09/07/16 at 00:30 Glucose (Glutose) 15 gm Q15M PRN BUCCAL DECREASED GLUCOSE; Start 09/07/16 at 00: 30 Enoxaparin Sodium (Lovenox) 40 mg DAILY SC Last administered on 09/15/16 08:16 ; Admin Dose 40 MG; Start 09/09/16 at 09:00 Mupirocin (Bactroban) 1 applic BID TOP Last administered on 09/15/16 08:15; Admin Dose 1 APPLIC; Start 09/08/16 at 14:00; Stop 09/21/16 at 21:01 Carvedilol (Coreg) 3.125 mg BID PO Last administered on 09/15/16 08:15; Admin Dose 3.125 MG; Start 09/11/16 at 21:00 Enalaprilat (Vasotec Iv) 1.25 mg Q8 PRN IV ELEVATED BLOOD PRESSURE; Start 09/12 at 09:30 Valsartan 80 mg 80 mg BID PO Last administered on 09/15/16 08:14; Admin Dose 80 MG; Start 09/12/16 at 12:00 Dextrose (D5W) 1,000 ml @ 50 mls/hr Q20H IV Last administered on 09/14/16 15: 00; Admin Dose 50 MLS/HR; Start 09/13/16 at 10:00 Aspirin (Aspirin) 325 mg DAILY PO Last administered on 09/15/16 08:14; Admin Dose 325 MG; Start 09/14/16 at 09:00 Diagnostic Test (Pha) (Accu-Chek) 1 ea 02 XX ; Start 09/15/16 at 02:00 Furosemide (Lasix) 40 mg DAILY PO Last administered on 09/15/16 08:14; Admin Dose 40 MG; Start 09/15/16 at 09:00 Acetaminophen (Tylenol Tab) 650 mg Q4H PRN PO PAIN AND OR ELEVATED TEMP; Start 09/14/16 at 18:00 Ricardo Kingsley DO Sep 15, 2016 13:24
[2016-09-15] MEDS ORDERED: FUROSEMIDE 20 MG INJ IV ONE (13:30)
[2016-09-15] MEDS: FUROSEMIDE 20 MG INJ IV SCH (17:41)
[2016-09-15] MEDS: ATORVASTATIN 40 MG TAB PO SCH (21:06)
[2016-09-15] MEDS: DEXTROSE 5% 1,000 ML IV SCH (22:00)
[2016-09-16] VITALS (23 sets, daily range): BP systolic 79–143; BP diastolic 56–99; PULSE 68–90; RESP 16–36
[2016-09-16] MEDS: ACCU-CHEK XX SCH (02:00)
[2016-09-16 05:15] LABS: ADD SCAN DIFF NO
[2016-09-16 05:47] LABS: MAGNESIUM 1.9 mg/dl (1.7-2.5); PHOSPHORUS 4.3 mg/dl (2.5-4.9)
[2016-09-16 05:48] LABS: CALCIUM 9.9 mg/dl (8.4-10.2); CREATININE 1.05 mg/dl (0.44-1.00); POTASSIUM 3.2 mmol/L (3.5-5.1)
[2016-09-16 06:06] LABS: BASOPHIL # 0.1 10^3/ul (0.0-0.1); BASOPHILS % 0.7 % (0.0-2.0); EOSINOPHILS # 0.3 10^3/ul (0.0-0.5); EOSINOPHILS % 4.3 % (0.0-7.0); HEMATOCRIT 34.4 % (37.0-47.0); LYMPHOCYTES # 1.1 10^3/ul (0.8-2.9); LYMPHOCYTES % 14.9 % (15.0-51.0); MEAN CORPUSCULAR HEMOGLOBIN 29.5 pg (29.0-33.0); MEAN CORPUSCULAR VOLUME 92.2 fl (82.0-101.0); MEAN PLATELET VOLUME 11.2 fl (7.4-10.4); MONOCYTE # 0.9 10^3/ul (0.3-0.9); MONOCYTES % 11.1 % (0.0-11.0); NEUTROPHIL # 5.2 10^3/ul (1.6-7.5); NEUTROPHILS % 68.5 % (39.0-77.0); PLATELET COUNT 348 10^3/UL (140-415); RED BLOOD COUNT 3.73 10^6/ul (4.20-5.40); RED CELL DISTRIBUTION WIDTH 14.6 % (11.5-14.5); WHITE BLOOD COUNT 7.7 10^3/ul (4.8-10.8)
[2016-09-16] MEDS: SPIRONOLACTONE 25 MG TAB NGT SCH ×2 (06:24→17:54)
[2016-09-16] MEDS: FUROSEMIDE 20 MG INJ IV SCH (06:24)
[2016-09-16] MEDS: PANTOPRAZOLE 40 MG INJ IV SCH (06:24)
[2016-09-16] MEDS: DEXTROSE 5% 1,000 ML IV SCH ×2 (07:37→18:00)
--- NOTE | 2016-09-16 08:10 | CONS ---
Date/Time of Note Date/Time of Note DATE: 09/16/16 TIME: 08:08 Assessment/Plan Assessment/Plan Additional Assessment/Plan Assessment and recommendations; 1. Patient admitted with severe congestive heart failure exacerbation with significant clinical improvement. Status post respiratory failure.. 2. History of cardiac arrhythmia. 3. History of hypertension. Continue current treatment. Consultation Date/Type/Reason Admit Date/Time Sep 06, 2016 at 20:38 Initial Consult Date 09/07/16 Type of Consultation: Pulmonary/critical care Referring Provider: MACKENZIE ESCOBAR 24 HR Interval Summary Free Text/Dictation Patient condition is stable. Denies any shortness of breath. Still maintained on high flow FiO2 via nasal cannula. Denies any chest pain. General exam; elderly woman, awake and alert currently in no distress. Exam/Review of Systems Vital Signs Vitals Vital Signs Date Time Temp Pulse Resp B/P Pulse Ox O2 Delivery O2 Flow Rate FiO2 09/16/16 07:00 77 26 130/70 93 High Flow 09/16/16 06:00 98.7 09/16/16 05:00 40 09/14/16 04:49 3.0 Intake and Output 09/15/16 09/15/16 09/16/16 15:00 23:00 07:00 Intake Total 600 ml 550 ml 100 ml Output Total 465 ml 595 ml 745 ml Balance 135 ml -45 ml -645 ml Exam HEENT examination; supple neck, positive JVD. No lymphadenopathy. Midline trachea. No thyromegaly. Patient has good dentition. Pharynx is clear. Pupils are midsize and reactive to light. Chest examination; clear to auscultation. S1-S2 audible, no murmurs. Regular rhythm. There is a pacemaker in the left chest wall. Abdomen examination; soft, nondistended. No organomegaly. Bowel sounds audible. Extremity examination; no peripheral edema. CLINIC ADMINISTRATOR examination; no focal deficit. Results Result Diagram: 09/16/16 0440 09/16/16 0440 Results 24 hrs Laboratory Tests Test 09/15/16 08:13 09/15/16 12:38 09/15/16 17:39 09/15/16 21:04 Bedside Glucose 154 142 150 143 Test 09/16/16 04:40 White Blood Count 7.7 Red Blood Count 3.73 L Hemoglobin 11.0 L Hematocrit 34.4 L Mean Corpuscular Volume 92.2 Mean Corpuscular Hemoglobin 29.5 Mean Corpuscular Hemoglobin Concent 32.0 Red Cell Distribution Width 14.6 H Platelet Count 348 Mean Platelet Volume 11.2 H Neutrophils % 68.5 Lymphocytes % 14.9 L Monocytes % 11.1 H Eosinophils % 4.3 Basophils % 0.7 Nucleated Red Blood Cells % 0.0 Neutrophils # 5.2 Lymphocytes # 1.1 Monocytes # 0.9 Eosinophils # 0.3 Basophils # 0.1 Nucleated Red Blood Cells # 0.0 Sodium Level 148 H Potassium Level 3.2 L Chloride Level 107 Carbon Dioxide Level 27 Anion Gap 17 H Blood Urea Nitrogen 35 H Creatinine 1.05 H Glucose Level 166 Calcium Level 9.9 Phosphorus Level 4.3 Magnesium Level 1.9 Medications Medications Current Medications Ondansetron HCl (Zofran Inj) 4 mg Q6H PRN IV NAUSEA AND/OR VOMITING Last administered on 09/11/16 16:49; Admin Dose 4 MG; Start 09/06/16 at 22:30 Hydromorphone HCl (Dilaudid) 0.5 mg Q4H PRN IV PAIN LEVEL 7-10 Last administered on 09/12/16 20:47; Admin Dose 0.5 MG; Start 09/06/16 at 22:30 Pantoprazole (Protonix Iv) 40 mg DAILY@06 IV Last administered on 09/16/16 06: 24; Admin Dose 40 MG; Start 09/07/16 at 06:00 Atorvastatin Calcium (Lipitor) 40 mg DAILY@21 PO Last administered on 21:06; Admin Dose 40 MG; Start 09/07/16 at 00:45 Miscellaneous Information 1 ea NOTE XX ; Start 09/07/16 at 00:30 Glucose (Glutose) 15 gm Q15M PRN PO DECREASED GLUCOSE; Start 09/07/16 at 00:30 Glucose (Glutose) 22.5 gm Q15M PRN PO DECREASED GLUCOSE; Start 09/07/16 at 00:30 Dextrose (D50w Syringe) 25 ml Q15M PRN IV DECREASED GLUCOSE; Start 09/07/16 at 00:30 Dextrose (D50w Syringe) 50 ml Q15M PRN IV DECREASED GLUCOSE; Start 09/07/16 at 00:30 Glucagon (Glucagen) 1 mg Q15M PRN IM DECREASED GLUCOSE; Start 09/07/16 at 00:30 Glucose (Glutose) 15 gm Q15M PRN BUCCAL DECREASED GLUCOSE; Start 09/07/16 at 00: 30 Enoxaparin Sodium (Lovenox) 40 mg DAILY SC Last administered on 09/15/16 08:16 ; Admin Dose 40 MG; Start 09/09/16 at 09:00 Mupirocin (Bactroban) 1 applic BID TOP Last administered on 09/15/16 21:07; Admin Dose 1 APPLIC; Start 09/08/16 at 14:00; Stop 09/21/16 at 21:01 Carvedilol (Coreg) 3.125 mg BID PO Last administered on 09/15/16 21:07; Admin Dose 3.125 MG; Start 09/11/16 at 21:00 Enalaprilat (Vasotec Iv) 1.25 mg Q8 PRN IV ELEVATED BLOOD PRESSURE; Start 09/12 at 09:30 Valsartan 80 mg 80 mg BID PO Last administered on 09/15/16 21:06; Admin Dose 80 MG; Start 09/12/16 at 12:00 Dextrose (D5W) 1,000 ml @ 50 mls/hr Q20H IV Last administered on 09/16/16 07: 37; Admin Dose 50 MLS/HR; Start 09/13/16 at 10:00 Aspirin (Aspirin) 325 mg DAILY PO Last administered on 09/15/16 08:14; Admin Dose 325 MG; Start 09/14/16 at 09:00 Diagnostic Test (Pha) (Accu-Chek) 1 ea 02 XX ; Start 09/15/16 at 02:00 Acetaminophen (Tylenol Tab) 650 mg Q4H PRN PO PAIN AND OR ELEVATED TEMP; Start 09/14/16 at 18:00 JEANIE PINO 17, 2017 08:10
[2016-09-16] MEDS: INSULIN ASPART [NOVOLOG] 3 ML PEN SC SCH ×4 (08:34→21:00)
[2016-09-16] MEDS: POTASSIUM CHLORIDE 50 ML IVPB PRN ×3 (09:05→11:46)
[2016-09-16] MEDS: VALSARTAN 80 MG TAB PO SCH ×2 (09:10→20:55)
[2016-09-16] MEDS: ASPIRIN 325 MG TAB PO SCH (09:10)
[2016-09-16] MEDS: ENOXAPARIN 40 MG/0.4 ML SYG SC SCH (09:12)
[2016-09-16] MEDS: MUPIROCIN 2% 22 GM OINT TOP SCH ×2 (09:13→22:10)
[2016-09-16] MEDS: ALBUTEROL/IPRATROPIUM (NEB) 3 ML AMP HHN SCH ×2 (09:24→15:37)
--- NOTE | 2016-09-16 10:10 | PN ---
Date/Time of Note Date/Time of Note DATE: 09/16/16 TIME: 10:08 Assessment/Plan VTE Prophylaxis VTE Prophylaxis Intervention: LMWH Lines/Catheters IV Catheter Type (from Nrsg): Peripheral IV Central line still needed: No Urinary Cath still in place: Yes Reason Cath still needed: other (indicate) (monitor diuresis) Assessment/Plan Assessment/Plan a/p 1. cards: acute pulm edema, cont diuresis, ncrease lasix today as I&O suggest inadequate diuresis (b) acs, cont secondary prevention 2. pulm: acute hypoxemic resp failure, cont O2 (currently hiflo at 40%) 3. gi: cirrhosis, stable 4. prior cva, cont secondary porevention Subjective 24 Hr Interval Summary Free Text/Dictation c/o pain at R wrist (Kcl ifusing) breathing OK tolerating diet Exam/Review of Systems Vital Signs Vitals Vital Signs Date Time Temp Pulse Resp B/P Pulse Ox O2 Delivery O2 Flow Rate FiO2 09/16/16 09:24 77 26 95 40 09/16/16 07:00 130/70 High Flow 09/16/16 06:00 98.7 09/14/16 04:49 3.0 Intake and Output 09/15/16 09/15/16 09/16/16 15:00 23:00 07:00 Intake Total 600 ml 550 ml 100 ml Output Total 465 ml 595 ml 745 ml Balance 135 ml -45 ml -645 ml Exam Constitutional: alert Respiratory: clear to auscultation Cardiovascular: regular rate and rhythm Gastrointestinal: soft Results Result Diagram: 09/16/16 0440 09/16/16 0440 Results 24 hrs Laboratory Tests Test 09/15/16 12:38 09/15/16 17:39 09/15/16 21:04 09/16/16 04:40 Bedside Glucose 142 150 143 White Blood Count 7.7 Red Blood Count 3.73 L Hemoglobin 11.0 L Hematocrit 34.4 L Mean Corpuscular Volume 92.2 Mean Corpuscular Hemoglobin 29.5 Mean Corpuscular Hemoglobin Concent 32.0 Red Cell Distribution Width 14.6 H Platelet Count 348 Mean Platelet Volume 11.2 H Neutrophils % 68.5 Lymphocytes % 14.9 L Monocytes % 11.1 H Eosinophils % 4.3 Basophils % 0.7 Nucleated Red Blood Cells % 0.0 Neutrophils # 5.2 Lymphocytes # 1.1 Monocytes # 0.9 Eosinophils # 0.3 Basophils # 0.1 Nucleated Red Blood Cells # 0.0 Sodium Level 148 H Potassium Level 3.2 L Chloride Level 107 Carbon Dioxide Level 27 Anion Gap 17 H Blood Urea Nitrogen 35 H Creatinine 1.05 H Glucose Level 166 Calcium Level 9.9 Phosphorus Level 4.3 Magnesium Level 1.9 Test 09/16/16 08:28 Bedside Glucose 154 Medications Medications Current Medications Ondansetron HCl (Zofran Inj) 4 mg Q6H PRN IV NAUSEA AND/OR VOMITING Last administered on 09/11/16 16:49; Admin Dose 4 MG; Start 09/06/16 at 22:30 Hydromorphone HCl (Dilaudid) 0.5 mg Q4H PRN IV PAIN LEVEL 7-10 Last administered on 09/12/16 20:47; Admin Dose 0.5 MG; Start 09/06/16 at 22:30 Pantoprazole (Protonix Iv) 40 mg DAILY@06 IV Last administered on 09/16/16 06: 24; Admin Dose 40 MG; Start 09/07/16 at 06:00 Atorvastatin Calcium (Lipitor) 40 mg DAILY@21 PO Last administered on 21:06; Admin Dose 40 MG; Start 09/07/16 at 00:45 Miscellaneous Information 1 ea NOTE XX ; Start 09/07/16 at 00:30 Glucose (Glutose) 15 gm Q15M PRN PO DECREASED GLUCOSE; Start 09/07/16 at 00:30 Glucose (Glutose) 22.5 gm Q15M PRN PO DECREASED GLUCOSE; Start 09/07/16 at 00:30 Dextrose (D50w Syringe) 25 ml Q15M PRN IV DECREASED GLUCOSE; Start 09/07/16 at 00:30 Dextrose (D50w Syringe) 50 ml Q15M PRN IV DECREASED GLUCOSE; Start 09/07/16 at 00:30 Glucagon (Glucagen) 1 mg Q15M PRN IM DECREASED GLUCOSE; Start 09/07/16 at 00:30 Glucose (Glutose) 15 gm Q15M PRN BUCCAL DECREASED GLUCOSE; Start 09/07/16 at 00: 30 Enoxaparin Sodium (Lovenox) 40 mg DAILY SC Last administered on 09/16/16 09:12 ; Admin Dose 40 MG; Start 09/09/16 at 09:00 Mupirocin (Bactroban) 1 applic BID TOP Last administered on 09/16/16 09:13; Admin Dose 1 APPLIC; Start 09/08/16 at 14:00; Stop 09/21/16 at 21:01 Carvedilol (Coreg) 3.125 mg BID PO Last administered on 09/16/16 09:10; Admin Dose 3.125 MG; Start 09/11/16 at 21:00 Enalaprilat (Vasotec Iv) 1.25 mg Q8 PRN IV ELEVATED BLOOD PRESSURE; Start 09/12 at 09:30 Valsartan 80 mg 80 mg BID PO Last administered on 09/16/16 09:10; Admin Dose 80 MG; Start 09/12/16 at 12:00 Dextrose (D5W) 1,000 ml @ 50 mls/hr Q20H IV Last administered on 09/16/16 07: 37; Admin Dose 50 MLS/HR; Start 09/13/16 at 10:00 Aspirin (Aspirin) 325 mg DAILY PO Last administered on 09/16/16 09:10; Admin Dose 325 MG; Start 09/14/16 at 09:00 Diagnostic Test (Pha) (Accu-Chek) 1 ea 02 XX ; Start 09/15/16 at 02:00 Acetaminophen (Tylenol Tab) 650 mg Q4H PRN PO PAIN AND OR ELEVATED TEMP; Start 09/14/16 at 18:00 ANNA ALLEN MD Sep 16, 2016 10:10
--- NOTE | 2016-09-16 10:16 | CONS ---
Date/Time of Note Date/Time of Note DATE: 09/16/16 TIME: 10:14 Assessment/Plan Assessment/Plan Chief Complaint/Hosp Course Acute decompensated systolic congestive heart failure Severe cardiomyopathy with ejection fraction 25% Respiratory failure status post extubation Mildly elevated troponin History of hypertension Diabetes History of AICD CVA Problems: Additional Assessment/Plan 1) continue current meds 2) Monitor mag for > 2 and potassium > 4 Consultation Date/Type/Reason Admit Date/Time Sep 06, 2016 at 20:38 Initial Consult Date 09/13/16 Type of Consultation: cv Referring Provider: MACKENZIE ESCOBAR 24 HR Interval Summary Free Text/Dictation no chest pain, no sob, no palpitations, remains weak Detailed Summary Respiratory: no complaints Cardiovascular: no complaints Gastrointestinal: no complaints Musculoskeletal: no complaints Skin: no complaints Neurologic: no complaints Exam/Review of Systems Vital Signs Vitals Vital Signs Date Time Temp Pulse Resp B/P Pulse Ox O2 Delivery O2 Flow Rate FiO2 09/16/16 09:24 77 26 95 40 09/16/16 07:00 130/70 High Flow 09/16/16 06:00 98.7 09/14/16 04:49 3.0 Intake and Output 09/15/16 09/15/16 09/16/16 15:00 23:00 07:00 Intake Total 600 ml 550 ml 100 ml Output Total 465 ml 595 ml 745 ml Balance 135 ml -45 ml -645 ml Exam Constitutional: alert, oriented Head: atraumatic, normocephalic Neck: supple Respiratory: clear to auscultation Cardiovascular: regular rate and rhythm Gastrointestinal: soft Extremities: normal pulses Results Result Diagram: 09/16/16 0440 09/16/16 0440 Results 24 hrs Laboratory Tests Test 09/15/16 12:38 09/15/16 17:39 09/15/16 21:04 09/16/16 04:40 Bedside Glucose 142 150 143 White Blood Count 7.7 Red Blood Count 3.73 L Hemoglobin 11.0 L Hematocrit 34.4 L Mean Corpuscular Volume 92.2 Mean Corpuscular Hemoglobin 29.5 Mean Corpuscular Hemoglobin Concent 32.0 Red Cell Distribution Width 14.6 H Platelet Count 348 Mean Platelet Volume 11.2 H Neutrophils % 68.5 Lymphocytes % 14.9 L Monocytes % 11.1 H Eosinophils % 4.3 Basophils % 0.7 Nucleated Red Blood Cells % 0.0 Neutrophils # 5.2 Lymphocytes # 1.1 Monocytes # 0.9 Eosinophils # 0.3 Basophils # 0.1 Nucleated Red Blood Cells # 0.0 Sodium Level 148 H Potassium Level 3.2 L Chloride Level 107 Carbon Dioxide Level 27 Anion Gap 17 H Blood Urea Nitrogen 35 H Creatinine 1.05 H Glucose Level 166 Calcium Level 9.9 Phosphorus Level 4.3 Magnesium Level 1.9 Test 09/16/16 08:28 Bedside Glucose 154 Medications Medications Current Medications Ondansetron HCl (Zofran Inj) 4 mg Q6H PRN IV NAUSEA AND/OR VOMITING Last administered on 09/11/16 16:49; Admin Dose 4 MG; Start 09/06/16 at 22:30 Hydromorphone HCl (Dilaudid) 0.5 mg Q4H PRN IV PAIN LEVEL 7-10 Last administered on 09/12/16 20:47; Admin Dose 0.5 MG; Start 09/06/16 at 22:30 Pantoprazole (Protonix Iv) 40 mg DAILY@06 IV Last administered on 09/16/16 06: 24; Admin Dose 40 MG; Start 09/07/16 at 06:00 Atorvastatin Calcium (Lipitor) 40 mg DAILY@21 PO Last administered on 21:06; Admin Dose 40 MG; Start 09/07/16 at 00:45 Miscellaneous Information 1 ea NOTE XX ; Start 09/07/16 at 00:30 Glucose (Glutose) 15 gm Q15M PRN PO DECREASED GLUCOSE; Start 09/07/16 at 00:30 Glucose (Glutose) 22.5 gm Q15M PRN PO DECREASED GLUCOSE; Start 09/07/16 at 00:30 Dextrose (D50w Syringe) 25 ml Q15M PRN IV DECREASED GLUCOSE; Start 09/07/16 at 00:30 Dextrose (D50w Syringe) 50 ml Q15M PRN IV DECREASED GLUCOSE; Start 09/07/16 at 00:30 Glucagon (Glucagen) 1 mg Q15M PRN IM DECREASED GLUCOSE; Start 09/07/16 at 00:30 Glucose (Glutose) 15 gm Q15M PRN BUCCAL DECREASED GLUCOSE; Start 09/07/16 at 00: 30 Enoxaparin Sodium (Lovenox) 40 mg DAILY SC Last administered on 09/16/16 09:12 ; Admin Dose 40 MG; Start 09/09/16 at 09:00 Mupirocin (Bactroban) 1 applic BID TOP Last administered on 09/16/16 09:13; Admin Dose 1 APPLIC; Start 09/08/16 at 14:00; Stop 09/21/16 at 21:01 Carvedilol (Coreg) 3.125 mg BID PO Last administered on 09/16/16 09:10; Admin Dose 3.125 MG; Start 09/11/16 at 21:00 Enalaprilat (Vasotec Iv) 1.25 mg Q8 PRN IV ELEVATED BLOOD PRESSURE; Start 09/12 at 09:30 Valsartan 80 mg 80 mg BID PO Last administered on 09/16/16 09:10; Admin Dose 80 MG; Start 09/12/16 at 12:00 Dextrose (D5W) 1,000 ml @ 50 mls/hr Q20H IV Last administered on 09/16/16 07: 37; Admin Dose 50 MLS/HR; Start 09/13/16 at 10:00 Aspirin (Aspirin) 325 mg DAILY PO Last administered on 09/16/16 09:10; Admin Dose 325 MG; Start 09/14/16 at 09:00 Diagnostic Test (Pha) (Accu-Chek) 1 ea 02 XX ; Start 09/15/16 at 02:00 Acetaminophen (Tylenol Tab) 650 mg Q4H PRN PO PAIN AND OR ELEVATED TEMP; Start 09/14/16 at 18:00 VINITA OH MD Sep 16, 2016 10:16
[2016-09-16] MEDS: FUROSEMIDE 40 MG INJ IV SCH (17:54)
[2016-09-16] MEDS: ATORVASTATIN 40 MG TAB PO SCH (20:55)
[2016-09-17] VITALS (14 sets, daily range): BP systolic 113–134; BP diastolic 58–81; PULSE 70–129; RESP 17–20
[2016-09-17] MEDS: ALBUTEROL/IPRATROPIUM (NEB) 3 ML AMP HHN SCH ×3 (01:19→16:20)
[2016-09-17] MEDS: ACCU-CHEK XX SCH (02:00)
[2016-09-17] MEDS: PANTOPRAZOLE 40 MG INJ IV SCH (05:54)
[2016-09-17] MEDS: SPIRONOLACTONE 25 MG TAB NGT SCH ×2 (05:54→17:32)
[2016-09-17] MEDS: FUROSEMIDE 40 MG INJ IV SCH ×2 (05:55→17:32)
[2016-09-17] MEDS: INSULIN ASPART [NOVOLOG] 3 ML PEN SC SCH ×4 (08:00→20:34)
[2016-09-17] MEDS: VALSARTAN 80 MG TAB PO SCH ×2 (08:30→20:32)
[2016-09-17] MEDS: ASPIRIN 325 MG TAB PO SCH (08:30)
[2016-09-17] MEDS: ENOXAPARIN 40 MG/0.4 ML SYG SC SCH (08:30)
[2016-09-17] MEDS: MUPIROCIN 2% 22 GM OINT TOP SCH ×2 (08:30→20:35)
--- NOTE | 2016-09-17 08:59 | PN ---
Date/Time of Note Date/Time of Note DATE: 09/17/16 TIME: 08:57 Assessment/Plan VTE Prophylaxis VTE Prophylaxis Intervention: LMWH Lines/Catheters IV Catheter Type (from Nrs): Saline Lock Urinary Cath still in place: No Assessment/Plan Assessment/Plan 1. cards: flash pulm edema, presumed to be related to acute cardiac event, cont secondary prevention, cont diuresis 2. gi: alcoholic cirrhosis, stable 3. increase activity 4. anticipate snf 1-2 days Subjective 24 Hr Interval Summary Free Text/Dictation doing well, no sob or cp no oob eating Exam/Review of Systems Vital Signs Vitals Vital Signs Date Time Temp Pulse Resp B/P Pulse Ox O2 Delivery O2 Flow Rate FiO2 09/17/16 08:19 74 14 97 Nasal Cannula 2.0 09/17/16 08:14 98.4 131/71 09/16/16 15:38 97 Intake and Output 09/16/16 09/16/16 09/17/16 15:00 23:00 07:00 Intake Total 442.5 ml 270 ml 650 ml Output Total 425 ml 950 ml 600 ml Balance 17.5 ml -680 ml 50 ml Exam Constitutional: alert Respiratory: clear to auscultation Cardiovascular: regular rate and rhythm Gastrointestinal: non-tender, soft Results Result Diagram: 09/16/16 0440 09/16/16 0440 Results 24 hrs Laboratory Tests Test 09/16/16 11:54 09/16/16 21:03 09/16/16 21:55 09/17/16 08:26 Bedside Glucose 153 159 156 140 Medications Medications Current Medications Ondansetron HCl (Zofran Inj) 4 mg Q6H PRN IV NAUSEA AND/OR VOMITING Last administered on 09/11/16 16:49; Admin Dose 4 MG; Start 09/06/16 at 22:30 Hydromorphone HCl (Dilaudid) 0.5 mg Q4H PRN IV PAIN LEVEL 7-10 Last administered on 09/12/16 20:47; Admin Dose 0.5 MG; Start 09/06/16 at 22:30 Pantoprazole (Protonix Iv) 40 mg DAILY@06 IV Last administered on 09/17/16 05: 54; Admin Dose 40 MG; Start 09/07/16 at 06:00 Atorvastatin Calcium (Lipitor) 40 mg DAILY@21 PO Last administered on 20:55; Admin Dose 40 MG; Start 09/07/16 at 00:45 Miscellaneous Information 1 ea NOTE XX ; Start 09/07/16 at 00:30 Glucose (Glutose) 15 gm Q15M PRN PO DECREASED GLUCOSE; Start 09/07/16 at 00:30 Glucose (Glutose) 22.5 gm Q15M PRN PO DECREASED GLUCOSE; Start 09/07/16 at 00:30 Dextrose (D50w Syringe) 25 ml Q15M PRN IV DECREASED GLUCOSE; Start 09/07/16 at 00:30 Dextrose (D50w Syringe) 50 ml Q15M PRN IV DECREASED GLUCOSE; Start 09/07/16 at 00:30 Glucagon (Glucagen) 1 mg Q15M PRN IM DECREASED GLUCOSE; Start 09/07/16 at 00:30 Glucose (Glutose) 15 gm Q15M PRN BUCCAL DECREASED GLUCOSE; Start 09/07/16 at 00: 30 Enoxaparin Sodium (Lovenox) 40 mg DAILY SC Last administered on 09/17/16 08:30 ; Admin Dose 40 MG; Start 09/09/16 at 09:00 Mupirocin (Bactroban) 1 applic BID TOP Last administered on 09/17/16 08:30; Admin Dose 1 APPLIC; Start 09/08/16 at 14:00; Stop 09/21/16 at 21:01 Carvedilol (Coreg) 3.125 mg BID PO Last administered on 09/17/16 08:30; Admin Dose 3.125 MG; Start 09/11/16 at 21:00 Enalaprilat (Vasotec Iv) 1.25 mg Q8 PRN IV ELEVATED BLOOD PRESSURE; Start 09/12 at 09:30 Valsartan 80 mg 80 mg BID PO Last administered on 09/17/16 08:30; Admin Dose 80 MG; Start 09/12/16 at 12:00 Dextrose (D5W) 1,000 ml @ 50 mls/hr Q20H IV Last administered on 09/16/16 07: 37; Admin Dose 50 MLS/HR; Start 09/13/16 at 10:00 Aspirin (Aspirin) 325 mg DAILY PO Last administered on 09/17/16 08:30; Admin Dose 325 MG; Start 09/14/16 at 09:00 Diagnostic Test (Pha) (Accu-Chek) 1 ea 02 XX ; Start 09/15/16 at 02:00 Acetaminophen (Tylenol Tab) 650 mg Q4H PRN PO PAIN AND OR ELEVATED TEMP; Start 09/14/16 at 18:00 ANNA ALLEN MD Sep 17, 2016 08:59
[2016-09-17 11:47] LABS: ADD SCAN DIFF NO
[2016-09-17 11:59] LABS: BASOPHIL # 0.1 10^3/ul (0.0-0.1); BASOPHILS % 0.6 % (0.0-2.0); EOSINOPHILS # 0.3 10^3/ul (0.0-0.5); HEMATOCRIT 36.1 % (37.0-47.0); HEMOGLOBIN 11.6 g/dl (12.0-16.0); LYMPHOCYTES # 1.2 10^3/ul (0.8-2.9); LYMPHOCYTES % 14.3 % (15.0-51.0); MEAN CORPUSCULAR HGB CONC 32.1 g/dl (32.0-37.0); MEAN CORPUSCULAR VOLUME 93.3 fl (82.0-101.0); MEAN PLATELET VOLUME 11.1 fl (7.4-10.4); MONOCYTE # 0.6 10^3/ul (0.3-0.9); MONOCYTES % 7.7 % (0.0-11.0); PLATELET COUNT 377 10^3/UL (140-415); RED BLOOD COUNT 3.87 10^6/ul (4.20-5.40); RED CELL DISTRIBUTION WIDTH 14.3 % (11.5-14.5); WHITE BLOOD COUNT 8.2 10^3/ul (4.8-10.8)
[2016-09-17 12:26] LABS: ALBUMIN 4.2 g/dl (3.3-4.9); ALBUMIN/GLOBULIN RATIO 0.8; BILIRUBIN,INDIRECT 0.5 mg/dl (0-1.1); BILIRUBIN,TOTAL 0.5 mg/dl (0.2-1.3); CALCIUM 10.4 mg/dl (8.4-10.2); CREATININE 1.04 mg/dl (0.44-1.00); POTASSIUM 3.7 mmol/L (3.5-5.1); TOTAL PROTEIN 9.4 g/dl (6.1-8.1)
--- NOTE | 2016-09-17 12:50 | RADRPT ---
PROCEDURE: XR Chest. CLINICAL INDICATION: CHF TECHNIQUE: An AP view of the chest was obtained. COMPARISON: Chest x-ray dated 09/15/2016 FINDINGS: There is a left subclavian single lead pacemaker. There is prominence of the interstitial and central pulmonary vascular marking. No pleural effusi on or pneumothorax is seen. The cardiomediastinal silhouette is moderately enlarged. Calcifications are seen within the aortic arch. The osseous structures demonstrate senescent changes. IMPRESSION: 1. Findings suggestive of pulmonary vascular congestion, improved when compared to the prior exami nation. 2. Moderate cardiomegaly and aortic atherosclerosis. 3. Left subclavian pacemaker. RPTAT: HH .Lucia Plascencia MD, MD Date Time Electronically viewed and signed by .Lucia Plascencia MD, on 09/17/2016 12:49 .G/
--- NOTE | 2016-09-17 12:59 | CONS ---
Date/Time of Note Date/Time of Note DATE: 09/17/16 TIME: 12:58 Assessment/Plan Assessment/Plan Additional Assessment/Plan Acute decompensated systolic congestive heart failure Severe cardiomyopathy with ejection fraction 25% Respiratory failure status post extubation Mildly elevated troponin History of hypertension Diabetes History of AICD CVA -Continue diuretics as blood pressure and renal function permits. Supplement potassium to maintain above 4.0 and magnesium above 2.0. Consultation Date/Type/Reason Admit Date/Time Sep 06, 2016 at 20:38 Initial Consult Date 09/07/16 Type of Consultation: cv Referring Provider: MACKENZIE ESCOBAR 24 HR Interval Summary Free Text/Dictation Shortness of breath is better, denies chest pain or palpitations Exam/Review of Systems Vital Signs Vitals Vital Signs Date Time Temp Pulse Resp B/P Pulse Ox O2 Delivery O2 Flow Rate FiO2 09/17/16 12:06 77 09/17/16 12:04 97.5 20 119/58 99 09/17/16 08:19 Nasal Cannula 2.0 09/16/16 15:38 97 Intake and Output 09/16/16 09/16/16 09/17/16 15:00 23:00 07:00 Intake Total 442.5 ml 270 ml 650 ml Output Total 425 ml 950 ml 600 ml Balance 17.5 ml -680 ml 50 ml Exam Mild dyspnea with extensively speaking, no apparent distress Constitutional: alert, oriented Head: normocephalic Respiratory: other (Coarse breath sounds bilaterally, no wheezing) Cardiovascular: other (S1-S2 heard), regular rate and rhythm Gastrointestinal: bowel sounds, non-tender, soft Extremities: edema Results Result Diagram: 09/17/16 1055 09/17/16 1055 Results 24 hrs Laboratory Tests Test 09/16/16 21:03 09/16/16 21:55 09/17/16 08:26 09/17/16 10:55 Bedside Glucose 159 156 140 White Blood Count 8.2 Red Blood Count 3.87 L Hemoglobin 11.6 L Hematocrit 36.1 L Mean Corpuscular Volume 93.3 Mean Corpuscular Hemoglobin 30.0 Mean Corpuscular Hemoglobin Concent 32.1 Red Cell Distribution Width 14.3 Platelet Count 377 Mean Platelet Volume 11.1 H Neutrophils % 73.0 Lymphocytes % 14.3 L Monocytes % 7.7 Eosinophils % 4.0 Basophils % 0.6 Nucleated Red Blood Cells % 0.0 Neutrophils # 6.0 Lymphocytes # 1.2 Monocytes # 0.6 Eosinophils # 0.3 Basophils # 0.1 Nucleated Red Blood Cells # 0.0 Sodium Level 146 H Potassium Level 3.7 Chloride Level 106 Carbon Dioxide Level 27 Anion Gap 17 H Blood Urea Nitrogen 33 H Creatinine 1.04 H Glucose Level 203 Calcium Level 10.4 H Total Bilirubin 0.5 Direct Bilirubin 0.00 Indirect Bilirubin 0.5 Aspartate Amino Transf (AST/SGOT) 32 Alanine Aminotransferase (ALT/SGPT) 20 Alkaline Phosphatase 255 H Total Protein 9.4 H Albumin 4.2 Globulin 5.20 H Albumin/Globulin Ratio 0.80 Test 09/17/16 11:48 Bedside Glucose 143 Medications Medications Current Medications Ondansetron HCl (Zofran Inj) 4 mg Q6H PRN IV NAUSEA AND/OR VOMITING Last administered on 09/11/16 16:49; Admin Dose 4 MG; Start 09/06/16 at 22:30 Hydromorphone HCl (Dilaudid) 0.5 mg Q4H PRN IV PAIN LEVEL 7-10 Last administered on 09/12/16 20:47; Admin Dose 0.5 MG; Start 09/06/16 at 22:30 Pantoprazole (Protonix Iv) 40 mg DAILY@06 IV Last administered on 09/17/16 05: 54; Admin Dose 40 MG; Start 09/07/16 at 06:00 Atorvastatin Calcium (Lipitor) 40 mg DAILY@21 PO Last administered on 20:55; Admin Dose 40 MG; Start 09/07/16 at 00:45 Miscellaneous Information 1 ea NOTE XX ; Start 09/07/16 at 00:30 Glucose (Glutose) 15 gm Q15M PRN PO DECREASED GLUCOSE; Start 09/07/16 at 00:30 Glucose (Glutose) 22.5 gm Q15M PRN PO DECREASED GLUCOSE; Start 09/07/16 at 00:30 Dextrose (D50w Syringe) 25 ml Q15M PRN IV DECREASED GLUCOSE; Start 09/07/16 at 00:30 Dextrose (D50w Syringe) 50 ml Q15M PRN IV DECREASED GLUCOSE; Start 09/07/16 at 00:30 Glucagon (Glucagen) 1 mg Q15M PRN IM DECREASED GLUCOSE; Start 09/07/16 at 00:30 Glucose (Glutose) 15 gm Q15M PRN BUCCAL DECREASED GLUCOSE; Start 09/07/16 at 00: 30 Enoxaparin Sodium (Lovenox) 40 mg DAILY SC Last administered on 09/17/16 08:30 ; Admin Dose 40 MG; Start 09/09/16 at 09:00 Mupirocin (Bactroban) 1 applic BID TOP Last administered on 09/17/16 08:30; Admin Dose 1 APPLIC; Start 09/08/16 at 14:00; Stop 09/21/16 at 21:01 Enalaprilat (Vasotec Iv) 1.25 mg Q8 PRN IV ELEVATED BLOOD PRESSURE; Start 09/12 at 09:30 Valsartan 80 mg 80 mg BID PO Last administered on 09/17/16 08:30; Admin Dose 80 MG; Start 09/12/16 at 12:00 Dextrose (D5W) 1,000 ml @ 50 mls/hr Q20H IV Last administered on 09/16/16 07: 37; Admin Dose 50 MLS/HR; Start 09/13/16 at 10:00 Aspirin (Aspirin) 325 mg DAILY PO Last administered on 09/17/16 08:30; Admin Dose 325 MG; Start 09/14/16 at 09:00 Diagnostic Test (Pha) (Accu-Chek) 1 ea 02 XX ; Start 09/15/16 at 02:00 Acetaminophen (Tylenol Tab) 650 mg Q4H PRN PO PAIN AND OR ELEVATED TEMP; Start 09/14/16 at 18:00 Carvedilol (Coreg) 6.25 mg BID PO ; Start 09/17/16 at 21:00 Ricardo Kingsley DO Sep 17, 2016 12:59
[2016-09-17] MEDS ORDERED: POTASSIUM CHLORIDE 20 MEQ POWDER FOR ORAL SOLN PO ONE (13:00)
[2016-09-17] MEDS ORDERED: MAGNESIUM SULFATE 2 GM/50 ML 50 ML IVPB ONE (13:00)
--- NOTE | 2016-09-17 13:31 | CONS ---
Date/Time of Note Date/Time of Note DATE: 09/17/16 TIME: 13:26 Assessment/Plan Assessment/Plan Additional Assessment/Plan Chest x-ray was reviewed from today which is showing marked improvement in bilateral pulmonary edema. Cardio megaly is present. Assessment recommendations; 1. Patient admitted with severe pulmonary edema status post respiratory failure now with marked overall clinical and radiological improvement. 2. History of hypertension. 3. History of cardiac arrhythmia, status post pacemaker placement in the past. 4. Mild renal insufficiency, with improved serum creatinine. Continue current treatment. Consultation Date/Type/Reason Admit Date/Time Sep 06, 2016 at 20:38 Initial Consult Date 09/07/16 Type of Consultation: Pulmonary Referring Provider: MACKENZIE ESCOBAR 24 HR Interval Summary Free Text/Dictation Patient condition is significantly improved. She has been transferred out of ICU to telemetry unit. Denies any shortness breath, chest pain. But does complain of dyspnea on mild exertion. General exam; elderly lady, awake alert currently in no distress. Exam/Review of Systems Vital Signs Vitals Vital Signs Date Time Temp Pulse Resp B/P Pulse Ox O2 Delivery O2 Flow Rate FiO2 09/17/16 12:06 77 09/17/16 12:04 97.5 20 119/58 99 09/17/16 08:19 Nasal Cannula 2.0 09/16/16 15:38 97 Intake and Output 09/16/16 09/16/16 09/17/16 15:00 23:00 07:00 Intake Total 442.5 ml 270 ml 650 ml Output Total 425 ml 950 ml 600 ml Balance 17.5 ml -680 ml 50 ml Exam HEENT examination; supple neck, positive JVD. No lymphadenopathy. Midline trachea. No thyromegaly. Pharynx is clear. Patient has good dentition. Pupils are equal and reactive to light bilaterally. Chest examination; clear to ulceration. S1-S2 audible, no murmurs. Regular rhythm. There is a pacemaker in the left chest wall. Abdomen examination; soft, nontender. No organomegaly. Bowel sounds audible. Extremity examination; no peripheral edema. STORE PRODUCT DEMONSTRATOR examination; no focal deficit. Results Result Diagram: 09/17/16 1055 09/17/16 1055 Results 24 hrs Laboratory Tests Test 09/16/16 21:03 09/16/16 21:55 09/17/16 08:26 09/17/16 10:55 Bedside Glucose 159 156 140 White Blood Count 8.2 Red Blood Count 3.87 L Hemoglobin 11.6 L Hematocrit 36.1 L Mean Corpuscular Volume 93.3 Mean Corpuscular Hemoglobin 30.0 Mean Corpuscular Hemoglobin Concent 32.1 Red Cell Distribution Width 14.3 Platelet Count 377 Mean Platelet Volume 11.1 H Neutrophils % 73.0 Lymphocytes % 14.3 L Monocytes % 7.7 Eosinophils % 4.0 Basophils % 0.6 Nucleated Red Blood Cells % 0.0 Neutrophils # 6.0 Lymphocytes # 1.2 Monocytes # 0.6 Eosinophils # 0.3 Basophils # 0.1 Nucleated Red Blood Cells # 0.0 Sodium Level 146 H Potassium Level 3.7 Chloride Level 106 Carbon Dioxide Level 27 Anion Gap 17 H Blood Urea Nitrogen 33 H Creatinine 1.04 H Glucose Level 203 Calcium Level 10.4 H Total Bilirubin 0.5 Direct Bilirubin 0.00 Indirect Bilirubin 0.5 Aspartate Amino Transf (AST/SGOT) 32 Alanine Aminotransferase (ALT/SGPT) 20 Alkaline Phosphatase 255 H Total Protein 9.4 H Albumin 4.2 Globulin 5.20 H Albumin/Globulin Ratio 0.80 Test 09/17/16 11:48 Bedside Glucose 143 Medications Medications Current Medications Ondansetron HCl (Zofran Inj) 4 mg Q6H PRN IV NAUSEA AND/OR VOMITING Last administered on 09/11/16 16:49; Admin Dose 4 MG; Start 09/06/16 at 22:30 Hydromorphone HCl (Dilaudid) 0.5 mg Q4H PRN IV PAIN LEVEL 7-10 Last administered on 09/12/16 20:47; Admin Dose 0.5 MG; Start 09/06/16 at 22:30 Pantoprazole (Protonix Iv) 40 mg DAILY@06 IV Last administered on 09/17/16 05: 54; Admin Dose 40 MG; Start 09/07/16 at 06:00 Atorvastatin Calcium (Lipitor) 40 mg DAILY@21 PO Last administered on 20:55; Admin Dose 40 MG; Start 09/07/16 at 00:45 Miscellaneous Information 1 ea NOTE XX ; Start 09/07/16 at 00:30 Glucose (Glutose) 15 gm Q15M PRN PO DECREASED GLUCOSE; Start 09/07/16 at 00:30 Glucose (Glutose) 22.5 gm Q15M PRN PO DECREASED GLUCOSE; Start 09/07/16 at 00:30 Dextrose (D50w Syringe) 25 ml Q15M PRN IV DECREASED GLUCOSE; Start 09/07/16 at 00:30 Dextrose (D50w Syringe) 50 ml Q15M PRN IV DECREASED GLUCOSE; Start 09/07/16 at 00:30 Glucagon (Glucagen) 1 mg Q15M PRN IM DECREASED GLUCOSE; Start 09/07/16 at 00:30 Glucose (Glutose) 15 gm Q15M PRN BUCCAL DECREASED GLUCOSE; Start 09/07/16 at 00: 30 Enoxaparin Sodium (Lovenox) 40 mg DAILY SC Last administered on 09/17/16 08:30 ; Admin Dose 40 MG; Start 09/09/16 at 09:00 Mupirocin (Bactroban) 1 applic BID TOP Last administered on 09/17/16 08:30; Admin Dose 1 APPLIC; Start 09/08/16 at 14:00; Stop 09/21/16 at 21:01 Enalaprilat (Vasotec Iv) 1.25 mg Q8 PRN IV ELEVATED BLOOD PRESSURE; Start 09/12 at 09:30 Valsartan 80 mg 80 mg BID PO Last administered on 09/17/16 08:30; Admin Dose 80 MG; Start 09/12/16 at 12:00 Dextrose (D5W) 1,000 ml @ 50 mls/hr Q20H IV Last administered on 09/16/16 07: 37; Admin Dose 50 MLS/HR; Start 09/13/16 at 10:00 Aspirin (Aspirin) 325 mg DAILY PO Last administered on 09/17/16 08:30; Admin Dose 325 MG; Start 09/14/16 at 09:00 Diagnostic Test (Pha) (Accu-Chek) 1 ea 02 XX ; Start 09/15/16 at 02:00 Acetaminophen (Tylenol Tab) 650 mg Q4H PRN PO PAIN AND OR ELEVATED TEMP; Start 09/14/16 at 18:00 Carvedilol 6.25 mg 6.25 mg BID PO ; Start 09/17/16 at 21:00 Magnesium Sulfate (Magnesium Sulfate 2 Gm/50 ml) 50 ml @ 25 mls/hr ONCE ONCE IVPB ; Start 09/17/16 at 13:00; Stop 09/17/16 at 14:59 JEANIE PINO Sep 17, 2016 13:31
[2016-09-17] MEDS: DEXTROSE 5% 1,000 ML IV SCH (15:10)
[2016-09-17] MEDS: ATORVASTATIN 40 MG TAB PO SCH (20:32)
[2016-09-18] VITALS (12 sets, daily range): BP systolic 119–132; BP diastolic 61–78; PULSE 66–89; RESP 16–20
[2016-09-18] MEDS: ALBUTEROL/IPRATROPIUM (NEB) 3 ML AMP HHN SCH ×3 (00:25→16:02)
[2016-09-18] MEDS: ACCU-CHEK XX SCH (01:24)
[2016-09-18] MEDS: FUROSEMIDE 40 MG INJ IV SCH ×2 (05:05→17:31)
[2016-09-18] MEDS: PANTOPRAZOLE 40 MG INJ IV SCH (05:06)
[2016-09-18] MEDS: SPIRONOLACTONE 25 MG TAB NGT SCH ×2 (05:10→17:30)
[2016-09-18 07:59] LABS: ADD SCAN DIFF NO
[2016-09-18 08:02] LABS: BASOPHIL # 0.1 10^3/ul (0.0-0.1); BASOPHILS % 0.7 % (0.0-2.0); EOSINOPHILS # 0.4 10^3/ul (0.0-0.5); EOSINOPHILS % 4.9 % (0.0-7.0); HEMATOCRIT 37.6 % (37.0-47.0); HEMOGLOBIN 11.8 g/dl (12.0-16.0); LYMPHOCYTES # 1.3 10^3/ul (0.8-2.9); LYMPHOCYTES % 16.5 % (15.0-51.0); MEAN CORPUSCULAR HEMOGLOBIN 29.2 pg (29.0-33.0); MEAN CORPUSCULAR HGB CONC 31.4 g/dl (32.0-37.0); MEAN CORPUSCULAR VOLUME 93.1 fl (82.0-101.0); MEAN PLATELET VOLUME 10.7 fl (7.4-10.4); MONOCYTE # 0.7 10^3/ul (0.3-0.9); MONOCYTES % 9.1 % (0.0-11.0); NEUTROPHIL # 5.2 10^3/ul (1.6-7.5); NEUTROPHILS % 68.4 % (39.0-77.0); PLATELET COUNT 382 10^3/UL (140-415); RED BLOOD COUNT 4.04 10^6/ul (4.20-5.40); RED CELL DISTRIBUTION WIDTH 13.9 % (11.5-14.5); WHITE BLOOD COUNT 7.6 10^3/ul (4.8-10.8)
[2016-09-18 08:31] LABS: CALCIUM 10.3 mg/dl (8.4-10.2); POTASSIUM 3.7 mmol/L (3.5-5.1)
[2016-09-18] MEDS: ENOXAPARIN 40 MG/0.4 ML SYG SC SCH (08:51)
[2016-09-18] MEDS: INSULIN ASPART [NOVOLOG] 3 ML PEN SC SCH ×4 (08:55→21:00)
[2016-09-18] MEDS: MUPIROCIN 2% 22 GM OINT TOP SCH ×2 (08:56→21:19)
[2016-09-18] MEDS: VALSARTAN 80 MG TAB PO SCH ×2 (08:56→21:17)
[2016-09-18] MEDS: ASPIRIN 325 MG TAB PO SCH (08:56)
[2016-09-18] MEDS: DEXTROSE 5% 1,000 ML IV SCH (08:58)
--- NOTE | 2016-09-18 12:07 | PN ---
Date/Time of Note Date/Time of Note DATE: 09/18/16 TIME: 11:58 Assessment/Plan VTE Prophylaxis VTE Prophylaxis Intervention: LMWH Lines/Catheters IV Catheter Type (from Nrs): Saline Lock Urinary Cath still in place: Yes Reason Cath still needed: other (indicate) (to be d/c'd today ) Assessment/Plan Assessment/Plan 60 yo female with: 1. Acute Hypoxemic respiratory failure, likely 2ry to pulmonary edema and CHF, ? triggered by acute cardiac event. Resolving, Down to RA to 2L NC. Diuresing well with Lasix 40 mg IV bid and Aldactone with renal function tolerating. CXR today Appreciate cardiac recs AICD in place and echo with EF of 25 %. 2. NSTEMI, with Cardiomyopathy EF 25%, s/p AICD. Patient noted to have occasional episodes of NSVT last week. Cardiology, Dr Kingsley following and troponins back to normal. Continue current meds and also ASA, Lovenox Repleting electrolytes prn 3. Congestive Heart Failure, systolic dysfunction acute on chronic with EF of 25 %. Still hypoxemic requiring Hi flow CXR still with pulmonary edema but diuresis limited by Hypernatremia, continue Aldactone for now, may need to resume Lasix Appreciate recs from Dr Kingsley and diuresing with lower dose of Lasix and Aldactone Continue current meds, including Coreg, Valsartan and diuretics 4. Cirrhosis, unknown history , so ? etiology. Patient also with Uterine Leiomyoma per records, Ca125 however up to 429.. will need referral to Quality Consultant Oncology/Oncology. No ascites on abdo u/s today. Ammonia OK and liver function OK . CT abdo/perlvis with NO masses just cirrhosis and small fat containing umbilical hernia along with enlarged midline uterus and no adnexal mass evident. Monitor LFTs and liver function, stable so far 5. ILAN vs CKD, renal function remains fairly stable while being diuresed with Aldactone 25 mg po bid today, holding Lasix . Hypernatremia slowly improving with D5W @ 50 cc/hr and backing down on diuretics. Creat better. Encourage po intake Renal US ? mild right hydronephrosis Moraes in place, continue to monitor. 6. Subacute to chronic CVA, on antiplatelets and carotid Doppler with mild disease. Continue antiplatelets and statins, ASA at 325 Appreciate Neurology eval, repeat CT head stable. PT/ST/OT to continue. 7. Hyperglycemia: On SSI, A1c 7.5. Prophylaxis: GI ppx with Protonix and on ppx dose of Lovenox now. Disposition: On Hi Flow now. Still in ICU today, discussed with pulmonary. Neurology, Pulmonary and Cardiology following. Full code Subjective 24 Hr Interval Summary Free Text/Dictation Patient doing better with much improved respiratory status On RA to 2L NC PT started and Moraes to be d/c'd Will need SNF placement in 24 to 48 hrs Exam/Review of Systems Vital Signs Vitals Vital Signs Date Time Temp Pulse Resp B/P Pulse Ox O2 Delivery O2 Flow Rate FiO2 09/18/16 09:03 97.4 67 19 132/68 99 09/18/16 08:26 Nasal Cannula 2.0 09/16/16 15:38 97 Intake and Output 09/17/16 09/17/16 09/18/16 15:00 23:00 07:00 Intake Total 1000 ml 1050 ml Output Total 1000 ml 700 ml Balance 0 ml 350 ml Exam Constitutional: alert, oriented, other (getting stronger ), well developed Respiratory: diminished breath sounds (bases bilaterally ), normal air movement Cardiovascular: nl pulses, regular rate and rhythm Gastrointestinal: distended (with known elarged Uterus ), non-tender, other ( cirrhosis ), soft Musculoskeletal: nl extremities to inspection Extremities: normal pulses, other (no edema, clubbing or cyanosis ) Neurological: LIFE AGENT II-XII intact, nl mental status, nl speech, other (improving strength ) Results Result Diagram: 09/18/16 0750 09/18/16 0650 Results 24 hrs Laboratory Tests Test 09/17/16 17:32 09/17/16 20:34 09/18/16 06:50 09/18/16 07:50 Bedside Glucose 126 154 Sodium Level 141 Potassium Level 3.7 Chloride Level 102 Carbon Dioxide Level 29 Anion Gap 14 Blood Urea Nitrogen 33 H Creatinine 1.00 Glucose Level 169 Calcium Level 10.3 H White Blood Count 7.6 Red Blood Count 4.04 L Hemoglobin 11.8 L Hematocrit 37.6 Mean Corpuscular Volume 93.1 Mean Corpuscular Hemoglobin 29.2 Mean Corpuscular Hemoglobin Concent 31.4 L Red Cell Distribution Width 13.9 Platelet Count 382 Mean Platelet Volume 10.7 H Neutrophils % 68.4 Lymphocytes % 16.5 Monocytes % 9.1 Eosinophils % 4.9 Basophils % 0.7 Nucleated Red Blood Cells % 0.0 Neutrophils # 5.2 Lymphocytes # 1.3 Monocytes # 0.7 Eosinophils # 0.4 Basophils # 0.1 Nucleated Red Blood Cells # 0.0 Test 09/18/16 08:38 Bedside Glucose 162 Medications Medications Current Medications Ondansetron HCl (Zofran Inj) 4 mg Q6H PRN IV NAUSEA AND/OR VOMITING Last administered on 09/11/16 16:49; Admin Dose 4 MG; Start 09/06/16 at 22:30 Hydromorphone HCl (Dilaudid) 0.5 mg Q4H PRN IV PAIN LEVEL 7-10 Last administered on 09/12/16 20:47; Admin Dose 0.5 MG; Start 09/06/16 at 22:30 Pantoprazole (Protonix Iv) 40 mg DAILY@06 IV Last administered on 09/18/16 05: 06; Admin Dose 40 MG; Start 09/07/16 at 06:00 Atorvastatin Calcium (Lipitor) 40 mg DAILY@21 PO Last administered on 20:32; Admin Dose 40 MG; Start 09/07/16 at 00:45 Miscellaneous Information 1 ea NOTE XX ; Start 09/07/16 at 00:30 Glucose (Glutose) 15 gm Q15M PRN PO DECREASED GLUCOSE; Start 09/07/16 at 00:30 Glucose (Glutose) 22.5 gm Q15M PRN PO DECREASED GLUCOSE; Start 09/07/16 at 00:30 Dextrose (D50w Syringe) 25 ml Q15M PRN IV DECREASED GLUCOSE; Start 09/07/16 at 00:30 Dextrose (D50w Syringe) 50 ml Q15M PRN IV DECREASED GLUCOSE; Start 09/07/16 at 00:30 Glucagon (Glucagen) 1 mg Q15M PRN IM DECREASED GLUCOSE; Start 09/07/16 at 00:30 Glucose (Glutose) 15 gm Q15M PRN BUCCAL DECREASED GLUCOSE; Start 09/07/16 at 00: 30 Enoxaparin Sodium (Lovenox) 40 mg DAILY SC Last administered on 09/18/16 08:51 ; Admin Dose 40 MG; Start 09/09/16 at 09:00 Mupirocin (Bactroban) 1 applic BID TOP Last administered on 09/18/16 08:56; Admin Dose 1 APPLIC; Start 09/08/16 at 14:00; Stop 09/21/16 at 21:01 Enalaprilat (Vasotec Iv) 1.25 mg Q8 PRN IV ELEVATED BLOOD PRESSURE; Start 09/12 at 09:30 Valsartan 80 mg 80 mg BID PO Last administered on 09/18/16 08:56; Admin Dose 80 MG; Start 09/12/16 at 12:00 Dextrose (D5W) 1,000 ml @ 50 mls/hr Q20H IV Last administered on 09/17/16 15: 10; Admin Dose 50 MLS/HR; Start 09/13/16 at 10:00 Aspirin (Aspirin) 325 mg DAILY PO Last administered on 09/18/16 08:56; Admin Dose 325 MG; Start 09/14/16 at 09:00 Diagnostic Test (Pha) (Accu-Chek) 1 ea 02 XX ; Start 09/15/16 at 02:00 Acetaminophen (Tylenol Tab) 650 mg Q4H PRN PO PAIN AND OR ELEVATED TEMP; Start 09/14/16 at 18:00 Carvedilol (Coreg) 6.25 mg BID PO Last administered on 09/18/16 08:56; Admin Dose 6.25 MG; Start 09/17/16 at 21:00 Procedures Procedures PROCEDURE: XR Chest. CLINICAL INDICATION: CHF TECHNIQUE: An AP view of the chest was obtained. COMPARISON: Chest x-ray dated 09/15/2016 FINDINGS: There is a left subclavian single lead pacemaker. There is prominence of the interstitial and central pulmonary vascular marking. No pleural effusion or pneumothorax is seen. The cardiomediastinal silhouette is moderately enlarged. Calcifications are seen within the aortic arch. The osseous structures demonstrate senescent changes. IMPRESSION: 1. Findings suggestive of pulmonary vascular congestion, improved when compared to the prior examination. 2. Moderate cardiomegaly and aortic atherosclerosis. 3. Left subclavian pacemaker. RPTAT: MACKENZIE RING Sep 18, 2016 12:07
--- NOTE | 2016-09-18 13:42 | CONS ---
Date/Time of Note Date/Time of Note DATE: 09/18/16 TIME: 13:40 Assessment/Plan Assessment/Plan Additional Assessment/Plan Assessment recommendations; 1. Patient admitted for CHF exacerbation with significant clinical improvement. Status post respiratory failure. 2. History of cardiac arrhythmia. That is post pacemaker placement in the past. 3. Hypertension. Number 4. Severe cardiomyopathy. Continue current treatment. Consultation Date/Type/Reason Admit Date/Time Sep 06, 2016 at 20:38 Initial Consult Date 09/07/16 Type of Consultation: Pulmonary Referring Provider: MACKENZIE ESCOBAR 24 HR Interval Summary Free Text/Dictation Patient condition is stable. Appears mildly dyspneic at rest. Patient has been ambulating well. Denies any chest pain, wheezing, chest pain or sputum production. General exam; elderly woman, awake alert currently in no distress. Exam/Review of Systems Vital Signs Vitals Vital Signs Date Time Temp Pulse Resp B/P Pulse Ox O2 Delivery O2 Flow Rate FiO2 09/18/16 12:30 98.5 68 19 124/72 97 09/18/16 08:26 Nasal Cannula 2.0 09/16/16 15:38 97 Intake and Output 09/17/16 09/17/16 09/18/16 15:00 23:00 07:00 Intake Total 1000 ml 1050 ml Output Total 1000 ml 700 ml Balance 0 ml 350 ml Exam HEENT exam; supple neck, positive JVD. No lymphadenopathy. Midline trachea. No thyromegaly. Patient has fair dentition. Pupils are equal and reactive to light. Chest exam; diminished but clear breath sound. S1-S2 audible, no murmurs. Regular rhythm. There is a pacemaker in the left chest wall. Abdomen examination; soft, no organomegaly. Bowel sounds audible. Extremity exam; no peripheral edema. Pulses 1+ bilaterally. MANAGER AMBULATORY exam is; no focal deficit. Results Result Diagram: 09/18/16 0750 09/18/16 0650 Results 24 hrs Laboratory Tests Test 09/17/16 17:32 09/17/16 20:34 09/18/16 06:50 09/18/16 07:50 Bedside Glucose 126 154 Sodium Level 141 Potassium Level 3.7 Chloride Level 102 Carbon Dioxide Level 29 Anion Gap 14 Blood Urea Nitrogen 33 H Creatinine 1.00 Glucose Level 169 Calcium Level 10.3 H White Blood Count 7.6 Red Blood Count 4.04 L Hemoglobin 11.8 L Hematocrit 37.6 Mean Corpuscular Volume 93.1 Mean Corpuscular Hemoglobin 29.2 Mean Corpuscular Hemoglobin Concent 31.4 L Red Cell Distribution Width 13.9 Platelet Count 382 Mean Platelet Volume 10.7 H Neutrophils % 68.4 Lymphocytes % 16.5 Monocytes % 9.1 Eosinophils % 4.9 Basophils % 0.7 Nucleated Red Blood Cells % 0.0 Neutrophils # 5.2 Lymphocytes # 1.3 Monocytes # 0.7 Eosinophils # 0.4 Basophils # 0.1 Nucleated Red Blood Cells # 0.0 Test 09/18/16 08:38 09/18/16 12:25 Bedside Glucose 162 147 Medications Medications Current Medications Ondansetron HCl (Zofran Inj) 4 mg Q6H PRN IV NAUSEA AND/OR VOMITING Last administered on 09/11/16 16:49; Admin Dose 4 MG; Start 09/06/16 at 22:30 Hydromorphone HCl (Dilaudid) 0.5 mg Q4H PRN IV PAIN LEVEL 7-10 Last administered on 09/12/16 20:47; Admin Dose 0.5 MG; Start 09/06/16 at 22:30 Atorvastatin Calcium (Lipitor) 40 mg DAILY@21 PO Last administered on 20:32; Admin Dose 40 MG; Start 09/07/16 at 00:45 Miscellaneous Information 1 ea NOTE XX ; Start 09/07/16 at 00:30 Glucose (Glutose) 15 gm Q15M PRN PO DECREASED GLUCOSE; Start 09/07/16 at 00:30 Glucose (Glutose) 22.5 gm Q15M PRN PO DECREASED GLUCOSE; Start 09/07/16 at 00:30 Dextrose (D50w Syringe) 25 ml Q15M PRN IV DECREASED GLUCOSE; Start 09/07/16 at 00:30 Dextrose (D50w Syringe) 50 ml Q15M PRN IV DECREASED GLUCOSE; Start 09/07/16 at 00:30 Glucagon (Glucagen) 1 mg Q15M PRN IM DECREASED GLUCOSE; Start 09/07/16 at 00:30 Glucose (Glutose) 15 gm Q15M PRN BUCCAL DECREASED GLUCOSE; Start 09/07/16 at 00: 30 Enoxaparin Sodium (Lovenox) 40 mg DAILY SC Last administered on 09/18/16 08:51 ; Admin Dose 40 MG; Start 09/09/16 at 09:00 Mupirocin (Bactroban) 1 applic BID TOP Last administered on 09/18/16 08:56; Admin Dose 1 APPLIC; Start 09/08/16 at 14:00; Stop 09/21/16 at 21:01 Enalaprilat (Vasotec Iv) 1.25 mg Q8 PRN IV ELEVATED BLOOD PRESSURE; Start 09/12 at 09:30 Valsartan 80 mg 80 mg BID PO Last administered on 09/18/16 08:56; Admin Dose 80 MG; Start 09/12/16 at 12:00 Dextrose (D5W) 1,000 ml @ 50 mls/hr Q20H IV Last administered on 09/17/16 15: 10; Admin Dose 50 MLS/HR; Start 09/13/16 at 10:00 Aspirin (Aspirin) 325 mg DAILY PO Last administered on 09/18/16 08:56; Admin Dose 325 MG; Start 09/14/16 at 09:00 Diagnostic Test (Pha) (Accu-Chek) 1 ea 02 XX ; Start 09/15/16 at 02:00 Acetaminophen (Tylenol Tab) 650 mg Q4H PRN PO PAIN AND OR ELEVATED TEMP; Start 09/14/16 at 18:00 Carvedilol (Coreg) 6.25 mg BID PO Last administered on 09/18/16 08:56; Admin Dose 6.25 MG; Start 09/17/16 at 21:00 Pantoprazole (Protonix Tab) 40 mg DAILY@06 PO ; Start 09/19/16 at 06:00 JEANIE PINO Sep 18, 2016 13:41
--- NOTE | 2016-09-18 15:27 | CONS ---
Date/Time of Note Date/Time of Note DATE: 09/18/16 TIME: 15:25 Assessment/Plan Assessment/Plan Additional Assessment/Plan Acute decompensated systolic congestive heart failure Severe cardiomyopathy with ejection fraction 25% Respiratory failure status post extubation Mildly elevated troponin History of hypertension Diabetes History of AICD CVA -Respiratory status continues to improve. Would change diuretics to p.o. Maintain potassium above 4.0 and magnesium above 2.0. Encourage physical therapy. Consultation Date/Type/Reason Admit Date/Time Sep 06, 2016 at 20:38 Initial Consult Date 09/07/16 Type of Consultation: cv Referring Provider: MACKENZIE ESCOBAR 24 HR Interval Summary Free Text/Dictation Shortness of breath is improved. Denies chest pain or palpitations Exam/Review of Systems Vital Signs Vitals Vital Signs Date Time Temp Pulse Resp B/P Pulse Ox O2 Delivery O2 Flow Rate FiO2 09/18/16 12:30 98.5 68 19 124/72 97 09/18/16 08:26 Nasal Cannula 2.0 09/16/16 15:38 97 Intake and Output 09/17/16 09/17/16 09/18/16 15:00 23:00 07:00 Intake Total 1000 ml 1050 ml Output Total 1000 ml 700 ml Balance 0 ml 350 ml Exam No apparent distress Constitutional: alert, oriented Head: normocephalic Respiratory: other (Coarse breath sounds bilaterally, no wheezing) Cardiovascular: other (S1-S2 heard), regular rate and rhythm Gastrointestinal: bowel sounds, non-tender, soft Extremities: edema Results Result Diagram: 09/18/16 0750 09/18/16 0650 Results 24 hrs Laboratory Tests Test 09/17/16 17:32 09/17/16 20:34 09/18/16 06:50 09/18/16 07:50 Bedside Glucose 126 154 Sodium Level 141 Potassium Level 3.7 Chloride Level 102 Carbon Dioxide Level 29 Anion Gap 14 Blood Urea Nitrogen 33 H Creatinine 1.00 Glucose Level 169 Calcium Level 10.3 H White Blood Count 7.6 Red Blood Count 4.04 L Hemoglobin 11.8 L Hematocrit 37.6 Mean Corpuscular Volume 93.1 Mean Corpuscular Hemoglobin 29.2 Mean Corpuscular Hemoglobin Concent 31.4 L Red Cell Distribution Width 13.9 Platelet Count 382 Mean Platelet Volume 10.7 H Neutrophils % 68.4 Lymphocytes % 16.5 Monocytes % 9.1 Eosinophils % 4.9 Basophils % 0.7 Nucleated Red Blood Cells % 0.0 Neutrophils # 5.2 Lymphocytes # 1.3 Monocytes # 0.7 Eosinophils # 0.4 Basophils # 0.1 Nucleated Red Blood Cells # 0.0 Test 09/18/16 08:38 09/18/16 12:25 Bedside Glucose 162 147 Medications Medications Current Medications Ondansetron HCl (Zofran Inj) 4 mg Q6H PRN IV NAUSEA AND/OR VOMITING Last administered on 09/11/16 16:49; Admin Dose 4 MG; Start 09/06/16 at 22:30 Hydromorphone HCl (Dilaudid) 0.5 mg Q4H PRN IV PAIN LEVEL 7-10 Last administered on 09/12/16 20:47; Admin Dose 0.5 MG; Start 09/06/16 at 22:30 Atorvastatin Calcium (Lipitor) 40 mg DAILY@21 PO Last administered on 20:32; Admin Dose 40 MG; Start 09/07/16 at 00:45 Miscellaneous Information 1 ea NOTE XX ; Start 09/07/16 at 00:30 Glucose (Glutose) 15 gm Q15M PRN PO DECREASED GLUCOSE; Start 09/07/16 at 00:30 Glucose (Glutose) 22.5 gm Q15M PRN PO DECREASED GLUCOSE; Start 09/07/16 at 00:30 Dextrose (D50w Syringe) 25 ml Q15M PRN IV DECREASED GLUCOSE; Start 09/07/16 at 00:30 Dextrose (D50w Syringe) 50 ml Q15M PRN IV DECREASED GLUCOSE; Start 09/07/16 at 00:30 Glucagon (Glucagen) 1 mg Q15M PRN IM DECREASED GLUCOSE; Start 09/07/16 at 00:30 Glucose (Glutose) 15 gm Q15M PRN BUCCAL DECREASED GLUCOSE; Start 09/07/16 at 00: 30 Enoxaparin Sodium (Lovenox) 40 mg DAILY SC Last administered on 09/18/16 08:51 ; Admin Dose 40 MG; Start 09/09/16 at 09:00 Mupirocin (Bactroban) 1 applic BID TOP Last administered on 09/18/16 08:56; Admin Dose 1 APPLIC; Start 09/08/16 at 14:00; Stop 09/21/16 at 21:01 Enalaprilat (Vasotec Iv) 1.25 mg Q8 PRN IV ELEVATED BLOOD PRESSURE; Start 09/12 at 09:30 Valsartan 80 mg 80 mg BID PO Last administered on 09/18/16 08:56; Admin Dose 80 MG; Start 09/12/16 at 12:00 Dextrose (D5W) 1,000 ml @ 50 mls/hr Q20H IV Last administered on 09/17/16 15: 10; Admin Dose 50 MLS/HR; Start 09/13/16 at 10:00 Aspirin (Aspirin) 325 mg DAILY PO Last administered on 09/18/16 08:56; Admin Dose 325 MG; Start 09/14/16 at 09:00 Diagnostic Test (Pha) (Accu-Chek) 1 ea 02 XX ; Start 09/15/16 at 02:00 Acetaminophen (Tylenol Tab) 650 mg Q4H PRN PO PAIN AND OR ELEVATED TEMP; Start 09/14/16 at 18:00 Carvedilol (Coreg) 6.25 mg BID PO Last administered on 09/18/16 08:56; Admin Dose 6.25 MG; Start 09/17/16 at 21:00 Pantoprazole (Protonix Tab) 40 mg DAILY@06 PO ; Start 09/19/16 at 06:00 Ricardo Kingsley DO Sep 18, 2016 15:27
[2016-09-18] MEDS: ATORVASTATIN 40 MG TAB PO SCH (21:17)
[2016-09-19] VITALS (10 sets, daily range): BP systolic 103–120; BP diastolic 55–70; PULSE 66–79; RESP 16–73
[2016-09-19] MEDS: ALBUTEROL/IPRATROPIUM (NEB) 3 ML AMP HHN SCH ×3 (00:57→16:25)
[2016-09-19] MEDS: ACCU-CHEK XX SCH (02:00)
[2016-09-19] MEDS ORDERED: PANTOPRAZOLE (EC) 40 MG TAB PO SCH (06:00)
[2016-09-19] MEDS: DEXTROSE 5% 1,000 ML IV SCH (06:00)
[2016-09-19] MEDS: SPIRONOLACTONE 25 MG TAB NGT SCH ×2 (06:30→17:12)
[2016-09-19] MEDS: FUROSEMIDE 20 MG TAB PO SCH ×2 (06:31→17:12)
[2016-09-19] MEDS: INSULIN ASPART [NOVOLOG] 3 ML PEN SC SCH ×3 (08:00→17:11)
[2016-09-19] MEDS: ASPIRIN 325 MG TAB PO SCH (08:37)
[2016-09-19] MEDS: VALSARTAN 80 MG TAB PO SCH (08:38)
[2016-09-19] MEDS: ENOXAPARIN 40 MG/0.4 ML SYG SC SCH (08:39)
[2016-09-19] MEDS: MUPIROCIN 2% 22 GM OINT TOP SCH (08:41)
--- NOTE | 2016-09-19 10:43 | CONS ---
Date/Time of Note Date/Time of Note DATE: 09/19/16 TIME: 10:42 Assessment/Plan Assessment/Plan Additional Assessment/Plan Assessment and recommendations; 1. P patient admitted for CHF exacerbation and respiratory failure doing very well now. 2. Underlying cardiomyopathy. 3. Hypertension. 4. History of cardiac arrhythmia, status post pacemaker placement in the past. Continue current treatment. Consultation Date/Type/Reason Admit Date/Time Sep 06, 2016 at 20:38 Initial Consult Date 09/07/16 Type of Consultation: Pulmonary Referring Provider: MACKENZIE ESCOBAR 24 HR Interval Summary Free Text/Dictation Patient condition is stable. Denies any shortness breath, chest pain,. Patient has been getting out of bed. General exam; elderly lady, awake alert currently in no distress. Exam/Review of Systems Vital Signs Vitals Vital Signs Date Time Temp Pulse Resp B/P Pulse Ox O2 Delivery O2 Flow Rate FiO2 09/19/16 08:28 79 09/19/16 08:12 2.0 09/19/16 08:12 20 99 Nasal Cannula 09/19/16 08:06 97.7 120/70 09/16/16 15:38 97 Intake and Output 09/18/16 09/18/16 09/19/16 15:00 23:00 07:00 Intake Total 750 ml 1000 ml Output Total 650 ml Balance 100 ml 1000 ml Exam HEENT exam; supple neck, positive JVD. No lymphadenopathy. Midline trachea. No thyromegaly. Patient has fair dentition. Pupils are midsize and reactive to light bilaterally. Chest examination; clear to ulceration. S1-S2 audible, no murmurs. Regular rhythm. There is a pacemaker in the left chest wall. Abdomen examination; soft, nontender. No organomegaly. Bowel sounds audible. Extremity examination; no peripheral edema. Pulses 1+ bilaterally. INSPECTOR CHIEF examination; no focal deficit Results Result Diagram: 09/18/16 0750 09/18/16 0650 Results 24 hrs Laboratory Tests Test 09/18/16 12:25 09/18/16 17:17 09/18/16 20:44 09/19/16 08:27 Bedside Glucose 147 124 140 140 Medications Medications Current Medications Ondansetron HCl (Zofran Inj) 4 mg Q6H PRN IV NAUSEA AND/OR VOMITING Last administered on 09/11/16t 16:49; Admin Dose 4 MG; Start 09/06/16 at 22:30 Hydromorphone HCl (Dilaudid) 0.5 mg Q4H PRN IV PAIN LEVEL 7-10 Last administered on 09/12/16 20:47; Admin Dose 0.5 MG; Start 09/06/16 at 22:30 Atorvastatin Calcium (Lipitor) 40 mg DAILY@21 PO Last administered on 21:17; Admin Dose 40 MG; Start 09/07/16 at 00:45 Miscellaneous Information 1 ea NOTE XX ; Start 09/07/16 at 00:30 Glucose (Glutose) 15 gm Q15M PRN PO DECREASED GLUCOSE; Start 09/07/16 at 00:30 Glucose (Glutose) 22.5 gm Q15M PRN PO DECREASED GLUCOSE; Start 09/07/16 at 00:30 Dextrose (D50w Syringe) 25 ml Q15M PRN IV DECREASED GLUCOSE; Start 09/07/16 at 00:30 Dextrose (D50w Syringe) 50 ml Q15M PRN IV DECREASED GLUCOSE; Start 09/07/16 at 00:30 Glucagon (Glucagen) 1 mg Q15M PRN IM DECREASED GLUCOSE; Start 09/07/16 at 00:30 Glucose (Glutose) 15 gm Q15M PRN BUCCAL DECREASED GLUCOSE; Start 09/07/16 at 00: 30 Enoxaparin Sodium (Lovenox) 40 mg DAILY SC Last administered on 09/19/16 08:39 ; Admin Dose 40 MG; Start 09/09/16 at 09:00 Mupirocin (Bactroban) 1 applic BID TOP Last administered on 09/19/16 08:41; Admin Dose 1 APPLIC; Start 09/08/16 at 14:00; Stop 09/21/16 at 21:01 Enalaprilat (Vasotec Iv) 1.25 mg Q8 PRN IV ELEVATED BLOOD PRESSURE; Start 09/12 at 09:30 Valsartan 80 mg 80 mg BID PO Last administered on 09/19/16 08:38; Admin Dose 80 MG; Start 09/12/16 at 12:00 Dextrose (D5W) 1,000 ml @ 50 mls/hr Q20H IV Last administered on 09/17/16 15: 10; Admin Dose 50 MLS/HR; Start 09/13/16 at 10:00 Aspirin (Aspirin) 325 mg DAILY PO Last administered on 09/19/16 08:37; Admin Dose 325 MG; Start 09/14/16 at 09:00 Diagnostic Test (Pha) (Accu-Chek) 1 ea 02 XX ; Start 09/15/16 at 02:00 Acetaminophen (Tylenol Tab) 650 mg Q4H PRN PO PAIN AND OR ELEVATED TEMP; Start 09/14/16 at 18:00 Carvedilol (Coreg) 6.25 mg BID PO Last administered on 09/19/16 08:37; Admin Dose 6.25 MG; Start 09/17/16 at 21:00 Pantoprazole (Protonix Tab) 40 mg DAILY@06 PO Last administered on 09/19/16 06 :30; Admin Dose 40 MG; Start 09/19/16 at 06:00 JEANIE PINO Sep 19, 2016 10:43
--- NOTE | 2016-09-19 11:09 | PN ---
Date/Time of Note Date/Time of Note DATE: 09/19/16 TIME: 10:48 Assessment/Plan VTE Prophylaxis VTE Prophylaxis Intervention: LMWH Lines/Catheters IV Catheter Type (from Nrs): Saline Lock Urinary Cath still in place: No Assessment/Plan Assessment/Plan 60 yo female with: 1. Acute Hypoxemic respiratory failure, likely 2ry to pulmonary edema and CHF, ? triggered by acute cardiac event. Resolving, Down to RA to 2L NC. Diuresing well. labs pending and on po with Lasix 40 mg bid and Aldactone with renal function tolerating so far. BMP/mag pending Appreciate cardiac recs AICD in place and echo with EF of 25 %. 2. S/p NSTEMI, with Cardiomyopathy EF 25%, s/p AICD. Patient noted to have occasional episodes of NSVT last week. Cardiology, Dr Kingsley following. Continue current meds, ASA Repleting electrolytes prn 3. Congestive Heart Failure, systolic dysfunction acute on chronic with EF of 25 %. Still hypoxemic requiring Hi flow Continue Aldactone and Lasix, repeat BMP pending Appreciate recs from Dr Kingsley. Continue current meds, including Coreg, Valsartan and diuretics 4. Cirrhosis, unknown history , so ? etiology. Patient also with Uterine Leiomyoma per records, Ca125 however up to 429.. patient already referred to Dr Medina [facility]. No ascites on abdo u/s today. Ammonia OK and liver function OK . CT abdo/perlvis with NO masses just cirrhosis and small fat containing umbilical hernia along with enlarged midline uterus and no adnexal mass evident. Monitor LFTs and liver function, stable so far 5. ILAN vs CKD, renal function remains fairly stable while being diuresed with Aldactone 25 mg po bid today, holding Lasix . Hypernatremia slowly improving with D5W @ 50 cc/hr and backing down on diuretics. Creat better. Encourage po intake Renal US ? mild right hydronephrosis Moraes in place, continue to monitor. 6. Subacute to chronic CVA, on antiplatelets and carotid Doppler with mild disease. Continue antiplatelets and statins, ASA at 325 Appreciate Neurology eval, repeat CT head stable. PT/ST/OT to continue. 7. Hyperglycemia: On SSI, A1c 7.5. Prophylaxis: GI ppx with Protonix and on ppx dose of Lovenox now. Disposition: On 2L NC, stable on Telemetry and Ok to transfer to SNF today, discussed with pulmonary and cardiology. Full code Subjective 24 Hr Interval Summary Free Text/Dictation Patient doing much better and stable for SNF discharge Continue PT and medication management at SNF Exam/Review of Systems Vital Signs Vitals Vital Signs Date Time Temp Pulse Resp B/P Pulse Ox O2 Delivery O2 Flow Rate FiO2 09/19/16 08:28 79 09/19/16 08:12 2.0 09/19/16 08:12 20 99 Nasal Cannula 09/19/16 08:06 97.7 120/70 09/16/16 15:38 97 Intake and Output 09/18/16 09/18/16 09/19/16 15:00 23:00 07:00 Intake Total 750 ml 1000 ml Output Total 650 ml Balance 100 ml 1000 ml Exam Constitutional: alert, obese, oriented, well developed Respiratory: diminished breath sounds (much improved, bases only ), normal air movement Cardiovascular: nl pulses, regular rate and rhythm Gastrointestinal: distended (with known enlarged uterus ), non-tender, soft Musculoskeletal: nl extremities to inspection Extremities: normal pulses, other (no edma, clubbing or cyanosis ) Neurological: LOCOMOTIVE FIRER/FIREMAN II-XII intact, nl mental status, nl speech, other ( generalised weakness better) Results Result Diagram: 09/18/16 0750 09/18/16 0650 Results 24 hrs Laboratory Tests Test 09/18/16 12:25 09/18/16 17:17 09/18/16 20:44 09/19/16 08:27 Bedside Glucose 147 124 140 140 Medications Medications Current Medications Ondansetron HCl (Zofran Inj) 4 mg Q6H PRN IV NAUSEA AND/OR VOMITING Last administered on 09/11/16 16:49; Admin Dose 4 MG; Start 09/06/16 at 22:30 Hydromorphone HCl (Dilaudid) 0.5 mg Q4H PRN IV PAIN LEVEL 7-10 Last administered on 09/12/16 20:47; Admin Dose 0.5 MG; Start 09/06/16 at 22:30 Atorvastatin Calcium (Lipitor) 40 mg DAILY@21 PO Last administered on 21:17; Admin Dose 40 MG; Start 09/07/16 at 00:45 Miscellaneous Information 1 ea NOTE XX ; Start 09/07/16 at 00:30 Glucose (Glutose) 15 gm Q15M PRN PO DECREASED GLUCOSE; Start 09/07/16 at 00:30 Glucose (Glutose) 22.5 gm Q15M PRN PO DECREASED GLUCOSE; Start 09/07/16 at 00:30 Dextrose (D50w Syringe) 25 ml Q15M PRN IV DECREASED GLUCOSE; Start 09/07/16 at 00:30 Dextrose (D50w Syringe) 50 ml Q15M PRN IV DECREASED GLUCOSE; Start 09/07/16 at 00:30 Glucagon (Glucagen) 1 mg Q15M PRN IM DECREASED GLUCOSE; Start 09/07/16 at 00:30 Glucose (Glutose) 15 gm Q15M PRN BUCCAL DECREASED GLUCOSE; Start 09/07/16 at 00: 30 Enoxaparin Sodium (Lovenox) 40 mg DAILY SC Last administered on 09/19/16 08:39 ; Admin Dose 40 MG; Start 09/09/16 at 09:00 Mupirocin (Bactroban) 1 applic BID TOP Last administered on 09/19/16 08:41; Admin Dose 1 APPLIC; Start 09/08/16 at 14:00; Stop 09/21/16 at 21:01 Enalaprilat (Vasotec Iv) 1.25 mg Q8 PRN IV ELEVATED BLOOD PRESSURE; Start 09/12 at 09:30 Valsartan 80 mg 80 mg BID PO Last administered on 09/19/16 08:38; Admin Dose 80 MG; Start 09/12/16 at 12:00 Dextrose (D5W) 1,000 ml @ 50 mls/hr Q20H IV Last administered on 09/17/16 15: 10; Admin Dose 50 MLS/HR; Start 09/13/16 at 10:00 Aspirin (Aspirin) 325 mg DAILY PO Last administered on 09/19/16 08:37; Admin Dose 325 MG; Start 09/14/16 at 09:00 Diagnostic Test (Pha) (Accu-Chek) 1 ea 02 XX ; Start 09/15/16 at 02:00 Acetaminophen (Tylenol Tab) 650 mg Q4H PRN PO PAIN AND OR ELEVATED TEMP; Start 09/14/16 at 18:00 Carvedilol (Coreg) 6.25 mg BID PO Last administered on 09/19/16 08:37; Admin Dose 6.25 MG; Start 09/17/16 at 21:00 Pantoprazole (Protonix Tab) 40 mg DAILY@06 PO Last administered on 09/19/16 06 :30; Admin Dose 40 MG; Start 09/19/16 at 06:00 MACKENZIE ESCOBAR Sep 19, 2016 10:59
--- NOTE | 2016-09-19 11:12 | PDOCDIS ---
Discharge Instructions CONDITION Patient Condition: Stable HOME CARE INSTRUCTIONS: Diet Instructions: Low Fat /CholesterolSpecial Diet: Mechanical soft diet ACTIVITY: Activity Restrictions: Slowly Increase Activity FOLLOW UP/APPOINTMENTS Appointments Follow up with Cardiology in 2 to 4 weeks Follow up with [facility], Dr Medina in 1 to 2 weeks MACKENZIE ESCOBAR Sep 19, 2016 11:12
--- NOTE | 2016-09-19 13:21 | CONS ---
Date/Time of Note Date/Time of Note DATE: 09/19/16 TIME: 13:19 Assessment/Plan Assessment/Plan Additional Assessment/Plan Acute decompensated systolic congestive heart failure Severe cardiomyopathy with ejection fraction 25% Respiratory failure status post extubation Mildly elevated troponin History of hypertension Diabetes History of AICD CVA -Respiratory status continues to improve. Tolerating p.o. Lasix, with titrate dose down over the next few days as per renal function, respiratory status and blood pressure. Maintain potassium above 4.0 and magnesium above 2.0. Encourage physical therapy. Consultation Date/Type/Reason Admit Date/Time Sep 06, 2016 at 20:38 Initial Consult Date 09/07/16 Type of Consultation: cv Referring Provider: MACKENZIE ESCOBAR 24 HR Interval Summary Free Text/Dictation Shortness of breath continues to improve. Denies chest pain or palpitation Exam/Review of Systems Vital Signs Vitals Vital Signs Date Time Temp Pulse Resp B/P Pulse Ox O2 Delivery O2 Flow Rate FiO2 09/19/16 12:29 74 09/19/16 11:50 98.2 16 103/57 98 09/19/16 08:12 2.0 09/19/16 08:12 Nasal Cannula 09/16/16 15:38 97 Intake and Output 09/18/16 09/18/16 09/19/16 15:00 23:00 07:00 Intake Total 750 ml 1000 ml Output Total 650 ml Balance 100 ml 1000 ml Exam No apparent distress Constitutional: alert, oriented Head: normocephalic Neck: supple Respiratory: other (Coarse breath sounds bilaterally, no wheezing) Cardiovascular: other (S1-S2 heard), regular rate and rhythm Gastrointestinal: bowel sounds, non-tender, soft Extremities: edema Results Result Diagram: 09/18/16 0750 09/18/16 0650 Results 24 hrs Laboratory Tests Test 09/18/16 17:17 09/18/16 20:44 09/19/16 08:27 09/19/16 11:56 Bedside Glucose 124 140 140 150 Medications Medications Current Medications Ondansetron HCl (Zofran Inj) 4 mg Q6H PRN IV NAUSEA AND/OR VOMITING Last administered on 09/11/16t 16:49; Admin Dose 4 MG; Start 09/06/16 at 22:30 Hydromorphone HCl (Dilaudid) 0.5 mg Q4H PRN IV PAIN LEVEL 7-10 Last administered on 09/12/16 20:47; Admin Dose 0.5 MG; Start 09/06/16 at 22:30 Atorvastatin Calcium (Lipitor) 40 mg DAILY@21 PO Last administered on 21:17; Admin Dose 40 MG; Start 09/07/16 at 00:45 Miscellaneous Information 1 ea NOTE XX ; Start 09/07/16 at 00:30 Glucose (Glutose) 15 gm Q15M PRN PO DECREASED GLUCOSE; Start 09/07/16 at 00:30 Glucose (Glutose) 22.5 gm Q15M PRN PO DECREASED GLUCOSE; Start 09/07/16 at 00:30 Dextrose (D50w Syringe) 25 ml Q15M PRN IV DECREASED GLUCOSE; Start 09/07/16 at 00:30 Dextrose (D50w Syringe) 50 ml Q15M PRN IV DECREASED GLUCOSE; Start 09/07/16 at 00:30 Glucagon (Glucagen) 1 mg Q15M PRN IM DECREASED GLUCOSE; Start 09/07/16 at 00:30 Glucose (Glutose) 15 gm Q15M PRN BUCCAL DECREASED GLUCOSE; Start 09/07/16 at 00: 30 Enoxaparin Sodium (Lovenox) 40 mg DAILY SC Last administered on 09/19/16 08:39 ; Admin Dose 40 MG; Start 09/09/16 at 09:00 Mupirocin (Bactroban) 1 applic BID TOP Last administered on 09/19/16 08:41; Admin Dose 1 APPLIC; Start 09/08/16 at 14:00; Stop 09/21/16 at 21:01 Enalaprilat (Vasotec Iv) 1.25 mg Q8 PRN IV ELEVATED BLOOD PRESSURE; Start 09/12 at 09:30 Valsartan (Diovan) 80 mg BID PO Last administered on 09/19/16 08:38; Admin Dose 80 MG; Start 09/12/16 at 12:00 Aspirin (Aspirin) 325 mg DAILY PO Last administered on 09/19/16 08:37; Admin Dose 325 MG; Start 09/14/16 at 09:00 Diagnostic Test (Pha) (Accu-Chek) 1 ea 02 XX ; Start 09/15/16 at 02:00 Acetaminophen (Tylenol Tab) 650 mg Q4H PRN PO PAIN AND OR ELEVATED TEMP; Start 09/14/16 at 18:00 Carvedilol (Coreg) 6.25 mg BID PO Last administered on 09/19/16 08:37; Admin Dose 6.25 MG; Start 09/17/16 at 21:00 Pantoprazole (Protonix Tab) 40 mg DAILY@06 PO Last administered on 09/19/16 06 :30; Admin Dose 40 MG; Start 09/19/16 at 06:00 Ricardo Kingsley DO Sep 19, 2016 13:21
[2016-09-19 14:51] LABS: CALCIUM 10.3 mg/dl (8.4-10.2); CREATININE 1.13 mg/dl (0.44-1.00); MAGNESIUM 1.9 mg/dl (1.7-2.5); POTASSIUM 3.9 mmol/L (3.5-5.1)
== END 2016-09-19 19:35 | DRG 207 ==
LOC: E/R 18:04 → ICU 20:38 → MS4 09-16 21:14
PROVIDERS: ADMIT Legal Medicine; ATTEND Legal Medicine
PROC: 0BH17EZ Insertion of Endotracheal Airway into Trachea, Via Natural or Artificial Opening (ICD-10-PCS; principal; 2016-09-06)
PROC: 5A1955Z Respiratory Ventilation, Greater than 96 Consecutive Hours (ICD-10-PCS; 2016-09-06)
PROC: 4A033R1 Measurement of Arterial Saturation, Peripheral, Percutaneous Approach (ICD-10-PCS; 2016-09-06)
DX: J96.01 Acute respiratory failure with hypoxia (principal); I21.4 Non-ST elevation (NSTEMI) myocardial infarction; I63.9 Cerebral infarction, unspecified; I50.23 Acute on chronic systolic (congestive) heart failure; G93.40 Encephalopathy, unspecified; I13.0 Hypertensive heart and chronic kidney disease with heart failure and stage 1 through stage 4 chronic kidney disease, or unspecified chronic kidney disease; E87.0 Hyperosmolality and hypernatremia; I42.9 Cardiomyopathy, unspecified; J96.02 Acute respiratory failure with hypercapnia; E11.65 Type 2 diabetes mellitus with hyperglycemia; K74.60 Unspecified cirrhosis of liver; N28.9 Disorder of kidney and ureter, unspecified; Z91.11 Patient's noncompliance with dietary regimen; Z95.810 Presence of automatic (implantable) cardiac defibrillator
CPT/HCPCS: 31500; 36415; 36600; 70450; 71010; 74000; 74176; 76705; 76775; 80048; 80053; 80061; 81001; 82140; 82550; 82553; 82803; 82962; 83036; 83605; 83735; 83880; 84100; 84439; 84443; 84484; 85025; 85610; 85730; 86304; 87040; 87070; 87081; 87086; 89220; 92526; 92610; 93005; 93306; 93880; 94002; 94003; 94640; 94660; 94664; 94770; 96372; 96374; 96375; 97116; 97162; 97530; J1940; C9113; J0360; J1170; J1650; J1815; J2405; J3475; J3480; J7070